=== PATIENT | female | born 1955 | race Caucasian/White ===

== ENCOUNTER → 2017-05-17 13:11 | Outpatient (POV) | payer BC, SELFPAY ==
[2017-05-17 13:33] VITALS: BP 150/83; PULSE 84; RESP 18; TEMP 37; O2SAT 96; BMI 30.7
--- NOTE | 2017-05-17 13:36 | HMH.PAINSOAP ---
[facility] Pain Management SOAP Note Subjective:: This patient is a pleasant 60-year-old white female who we have been treating for low back pain with degenerative disc disease of lumbar spine with lumbar spondylosis. She got 4-5 months complete relief of her pain symptoms after her RFA of L3-L4, L4-5 and L5-S1. She was 90% better. Pain is starting to return. Her last RFA was in June 2016. Since her pain is back in the same areas we will seek approval for repeat radiofrequency ablation to the facet joints of L3-L4, L4-L5 and L5-S1 bilaterally. Objective:: Alert and oriented ?3 in no acute distress. Tenderness over the lower lumbar spine. Increased pain with extension. Motor strength of the lower extremities is 5/5. There is no gross sensory deficit. Assessment:: Degenerative disc disease of lumbar spine multiple levels with lumbar spondylosis at L3-L4, L4-L5 and L5-S1. Plan:: We will seek approval for radiofrequency ablation to the facet joints of L3-4, L4-5 and L5-S1. Her last RFA was in June of last year she had gotten 90% relief of her pain symptoms for 6 months. Her pain is started to return. We will seek approval and plan on repeat radiofrequency ablation to L3-L4, L4-5 and L5-S1. We will plan on doing the left side followed by the right side in 2 weeks.
== END ==
PROVIDERS: Family Provider Family Medicine; PCP Family Medicine; Visit Provider Anesthesiology
DX: M51.16 Intervertebral disc disorders with radiculopathy, lumbar region (principal)
CPT/HCPCS: 99212

== ENCOUNTER 2017-06-18 11:10 | Day surgery (SDC) | payer BC, SELFPAY ==
[2017-06-18 12:53] VITALS: BP 162/81; PULSE 68; RESP 188; TEMP 36.1; O2SAT 99; BMI 29.9
[2017-06-18 13:28] VITALS: BP 141/78; PULSE 75; RESP 18
[2017-06-18 13:41] VITALS: BP 165/79; PULSE 67; RESP 18; O2SAT 99
--- NOTE | 2017-06-18 13:44 | P.PCN_ITS ---
- Procedure Date: 06/18/17 Time: 13:23 Anesthesiologist:: Johnathan Ferraro MD Complications:: None Pre-procedure Diagnosis:: Degenerative disc disease of lumbar spine multiple levels with lumbar spondylosis Post-procedure Diagnosis:: Same Indications for Procedure:: This patient is a pleasant 61-year-old white female who we have been treating for low back pain with lumbar radiculopathy symptoms. She previously had RFA of the facet joint/medial branches of L3-L4, L4-5 and L5-S1 in June 2016. She got 4-5 months complete relief of her pain symptoms. Her symptoms is started to return. We will do repeat RFA to the facet joint/medial branches of L3-L4, L4-L5 and L5-S1. Today her right side is worse we will start with the right side today followed by the left side in 2 weeks. Procedure Details:: Lumbar RFA informed consent was obtained and the risk and benefits of the procedure was explained to the patient. Patient was placed prone on the procedure table. The patient was prepped and draped in sterile fashion. C-arm fluoroscopy was used to view the lumbar spine. The skin and subcutaneous tissues were anesthetized using lidocaine. I placed 20-gauge RF needles into the facet joints of L3-L4, L4-L5 and L5-S1 levels on the right side. We underwent sensory stimulation. There is good sensory stimulation at 0.8 V. We underwent motor stimulation. There is no motor stimulation at 2 V. We then anesthetized these levels with lidocaine and Depo-Medrol. I used a total of 40 mg Depo- Medrol for all 3 levels. I then burned both levels of L3-L4, L4-5 and L5-S1 facet joint/medial branches on the right side for 60 seconds at 80?C. We underwent 4 arellano again each 1 for 60 seconds at 80?C. Patient tolerated the procedure well with no complication. Plan and Disposition:: We will follow-up with her in 2 weeks. We will reevaluate her symptoms and plan on RFA of the facet joint/medial branches of L3-L4, L4-L5 and L5-S1 on the left side.
[2017-06-18 13:53] VITALS: BP 165/89; PULSE 71; RESP 18; TEMP 36.1; O2SAT 96
== END 2017-06-18 14:00 ==
LOC: SC.PAINP 11:11
PROVIDERS: Family Provider Family Medicine; PCP Family Medicine; Visit Provider Anesthesiology
DX: M51.16 Intervertebral disc disorders with radiculopathy, lumbar region (principal); M47.896 Other spondylosis, lumbar region
CPT/HCPCS: 64635; 64636; J1040

== ENCOUNTER → 2017-07-30 09:26 | Day surgery (SDC) | payer BC, SELFPAY ==
[2017-07-30 09:38] VITALS: BP 150/71; PULSE 65; RESP 18; TEMP 36.7; O2SAT 99; BMI 29.9
--- NOTE | 2017-07-30 09:59 | HMH.PMPROC ---
- Procedure Date: 07/30/17 Time: 09:59 Anesthesiologist:: Johnathan Ferraro MD Complications:: None Pre-procedure Diagnosis:: Degenerative disc disease of lumbar spine multiple levels with lumbar spondylosis Post-procedure Diagnosis:: Same Indications for Procedure:: This patient is a pleasant 61-year-old white female who we have been treating for low back pain with lumbar radiculopathy symptoms. She previously had radiofrequency ablation to the facet joint/medial branches of L3-L4 and L4-L5 and L5-S1 right side with good relief of her pain symptoms. She is 80% better on the right side. She presents for radiofrequency ablation to the same levels on the left side today. Procedure Details:: Lumbar RFA informed consent was obtained and the risk and benefits of the procedure was explained to the patient. Patient was placed prone on the procedure table. The patient was prepped and draped in sterile fashion. C-arm fluoroscopy was used to view the lumbar spine. The skin and subcutaneous tissues were anesthetized using lidocaine. I placed 20-gauge RF needles into the facet joints of L3-L4, L4-5 and L5-S1 on the left side. We underwent sensory stimulation. There is good sensory stimulation at 0.8 V. We underwent motor stimulation. There is no motor stimulation at 2 V. We then anesthetized these levels with lidocaine and Depo-Medrol. I used a total of 40 mg Depo-Medrol for all three levels. I then burned all 3 levels of L3-L4, L4-L5 and L5-S1 facet joint/medial branches on the left side for 60 seconds at 80?C. We underwent 4 arellano again each 1 for 60 seconds at 80?C. Patient tolerated the procedure well with no complication. Plan and Disposition:: We will follow-up with her in 1 month. We will reevaluate her symptoms at that time.
[2017-07-30 10:08] VITALS: BP 171/81; PULSE 64; RESP 18; O2SAT 98
[2017-07-30 10:09] VITALS: BP 156/77; PULSE 60; RESP 18; O2SAT 98
[2017-07-30 10:53] VITALS: BP 174/67; PULSE 62; RESP 16; O2SAT 98
== END ==
PROVIDERS: Family Provider Family Medicine; PCP Family Medicine; Visit Provider Anesthesiology
DX: M51.16 Intervertebral disc disorders with radiculopathy, lumbar region (principal)
CPT/HCPCS: 64635; 64636; J1030; Q9966

== ENCOUNTER → 2018-02-28 15:00 | Outpatient (POV) | payer BC, SELFPAY ==
[2018-02-28 15:35] VITALS: BP 155/86; PULSE 78; RESP 18; O2SAT 98; BMI 29.9
--- NOTE | 2018-03-01 07:54 | HMH.PAINSOAP ---
[facility] Pain Management SOAP Note Subjective:: Patient is a pleasant 62-year-old white female who we are treating for low back pain. Patient has had RFA in the past. Patient has done well for 7 months. It provided good relief for her. Patient states her pain has begun to come back. Patient would like to try a round of medial branch blocks/facet joint injections to see if this would help prolong her success with the RFA. She rates her pain is out of 10 today. Mostly low back. Patient has difficulty with turning movements. ROS General: no recent weight change, no fever, no sleep disturbances Respiratory: no cough, no shortness of air, no recurring pulmonary infections Cardiovascular/Peripheral Vascular: No chest pain, No palpitations, no edema, no shortness of breath. Gastrointestinal: no incontinence, normal bowel movements reported Genitourinary: no incontinence Musculoskeletal: Back pain Psychiatric: normal mood/ affect Neurological: [denies weakness in extremities], [denies balance issues] Objective:: Physical Exam General: Alert and oriented x3, no acute distress, pleasant and cooperative, [on room air] Lungs: Resps E/U, Symmetrical chest expansion, Eyes: PERRL Musculoskeletal: Flexion and extension of lumbar spine somewhat guarded secondary to pain, deep tendon reflexes normal, strength in upper and lower extremities [5/5], slightly antalgic gait noted, positive Kemps test bilaterally lumbar spine Neurological: speech clear, 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 Patient has had good relief with these in the past. Patient has received over 7 months of relief with her RFA. I will follow-up with the patient after her injection. Patient is not on any anticoagulation therapy. This note was dictated using voice recognition software and may contain errors or omissions
== END ==
PROVIDERS: PCP Family Medicine; Visit Provider Clinical Nurse Specialist Family Health
DX: M51.36 Other intervertebral disc degeneration, lumbar region (principal); M47.896 Other spondylosis, lumbar region; M54.06 Panniculitis affecting regions of neck and back, lumbar region
CPT/HCPCS: 99213

== ENCOUNTER → 2018-04-11 14:35 | Outpatient (POV) | payer BC, SELFPAY ==
[2018-04-11 15:59] VITALS: BP 184/87; PULSE 82; RESP 18; O2SAT 99; BMI 28.6
--- NOTE | 2018-04-12 08:15 | P.CONS_ITS ---
[facility] Pain Management SOAP Note Subjective:: Is a pleasant 62-year-old white female who presents today for follow-up after medial branch blocks. Patient is doing extremely well she rates her pain a 2 out of 10 today. Patient would like to follow-up as needed. ROS General: no recent weight change, no fever, no sleep disturbances Respiratory: no cough, no shortness of air, no recurring pulmonary infections Cardiovascular/Peripheral Vascular: No chest pain, No palpitations, no edema, no shortness of breath. Gastrointestinal: no incontinence, normal bowel movements reported Genitourinary: no incontinence Musculoskeletal: Back pain at times Psychiatric: normal mood/ affect Neurological: [denies weakness in extremities], [denies balance issues] Objective:: Physical Exam General: Alert and oriented x3, no acute distress, pleasant and cooperative, [on room air] Lungs: Resps E/U, Symmetrical chest expansion, Eyes: PERRL Musculoskeletal: Flexion and extension of lumbar spine somewhat guarded secondary to pain, deep tendon reflexes normal, strength in upper and lower extremities [5/5], slightly antalgic gait noted Neurological: speech clear, 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 Patient's been a call our office when her pain begins to return This note was dictated using voice recognition software and may contain errors or omissions
== END ==
PROVIDERS: PCP Family Medicine; Visit Provider Clinical Nurse Specialist Family Health
DX: M51.36 Other intervertebral disc degeneration, lumbar region (principal); M47.896 Other spondylosis, lumbar region; M54.06 Panniculitis affecting regions of neck and back, lumbar region
CPT/HCPCS: 99213

== ENCOUNTER → 2018-06-17 10:32 | Outpatient (CLI) | payer BC, SELFPAY ==
--- NOTE | 2018-06-17 10:35 | XR_ITS ---
XR shoulder RT min 2V HISTORY: ITS.REASON: ACUTE RT SHOULDER PAIN ORDERING PHYSICIAN: Marbella Coffey PATIENT AGE: 62 years Comparison: None FINDINGS: No fracture or dislocation. No lytic or blastic change. There is normal mineralization. The joint spaces are well-preserved. No significant degenerative/arthritic changes. No erosive changes evident. IMPRESSION: Negative, no acute finding
== END ==
PROVIDERS: PCP Nurse Practitioner Family; Visit Provider Nurse Practitioner Family
DX: M25.511 Pain in right shoulder (principal)
CPT/HCPCS: 73030

== ENCOUNTER → 2018-07-01 13:49 | Outpatient (CLI) | payer BC, SELFPAY ==
--- NOTE | 2018-07-01 13:56 | US_ITS ---
US thyroid HISTORY: ITS.REASON: THYROMEGALY, prior radiation to the thyroid ORDERING PHYSICIAN: Marbella Coffey PATIENT AGE: 62 years Comparison: 06/11/2016 FINDINGS: Hypoplastic right lobe noted at 1.1 x 0.4 x 0.5 cm with heterogeneous echogenicity. No discrete mass or enlargement. Hypoplastic left lobe at 1.6 x 0.7 x 0.5 cm with heterogeneous echogenicity. No discrete mass or enlargement. IMPRESSION: Small heterogeneous thyroid gland. No discrete mass apparent
== END ==
PROVIDERS: PCP Nurse Practitioner Family; Visit Provider Nurse Practitioner Family
DX: E01.0 Iodine-deficiency related diffuse (endemic) goiter (principal)
CPT/HCPCS: 76536

== ENCOUNTER → 2018-10-10 08:43 | Outpatient (CLI) | payer BC, SELFPAY ==
--- NOTE | 2018-10-10 08:49 | XR_ITS ---
XR elbow RT min 3V HISTORY: ITS.REASON: rt elbow pain ORDERING PHYSICIAN: Eri Etienne MD PATIENT AGE: 62 years COMPARISON: None FINDINGS: No obvious fracture or dislocation. No lytic or blastic change. There is a well-circumscribed calcification along the medial epicondyle and may be an old avulsion fracture or ligamentous injury. IMPRESSION: Chronic changes at the medial epicondyle otherwise negative
--- NOTE | 2018-10-10 08:49 | XR_ITS ---
XR hip RT 2-3V w/pelvis HISTORY: ITS.REASON: rt hip pain ORDERING PHYSICIAN: Eri Etienne MD PATIENT AGE: 62 years COMPARISON: None FINDINGS: There are mild osteoarthritic changes of the right hip. No acute fracture or dislocation. Mild osteoarthritis also involves SI joints in the left hip as seen on the AP view of the pelvis. No lytic or blastic changes. 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
--- NOTE | 2018-10-10 08:49 | XR_ITS ---
XR knee RT 4V HISTORY: ITS.REASON: knee pain ORDERING PHYSICIAN: Eri Etienne MD PATIENT AGE: 62 years COMPARISON: None FINDINGS: No fracture or dislocation. No lytic or blastic change. Normal mineralization. No significant arthritic changes evident. No other significant findings IMPRESSION: Negative Knee
== END ==
PROVIDERS: PCP Family Medicine; Visit Provider Orthopaedic Surgery
DX: M25.551 Pain in right hip (principal); M25.521 Pain in right elbow
CPT/HCPCS: 73080; 73502; 73564

== ENCOUNTER → 2019-08-22 09:33 | Outpatient (POV) | payer BC, SELFPAY ==
--- NOTE | 2019-08-22 11:37 | HMH.VVPMSO ---
[facility] Virtual Visit SOAP Consent for virtual visit:: With the recent concerns about the COVID-19, we are trying to minimize exposure to you by shifting to telehealth appointments whenever possible. It restricts me from seeing you in person, but the trade off is protecting you during this pandemic. Can you see and hear me okay, and do you consent to this option? If not, I would be happy to see if we can reschedule your appointment in the future, when feasible. Has patient consented to this virtual visit?: Yes Subjective:: Is a pleasant 63-year-old white female who presents today to discuss her low back pain. A year ago the patient had an RFA of her lumbar spine. She got 80% relief for 9 months. She has had another medial branch block in which she got 90% relief afterwards. Patient would like to move forward with an repeat radiofrequency ablation of L3-L4 L4-L5 L5-S1 given the efficacy of the last one. She rates her pain today a 7 out of 10. She is trying to stay active at work. Patient's pain is becoming an issue in her activities of daily living. She is tried and failed anti-inflammatories physical therapy and injective therapy. ROS General: no recent weight change, no fever, no sleep disturbances Respiratory: no cough, no shortness of air, no recurring pulmonary infections Cardiovascular/Peripheral Vascular: No chest pain, No palpitations, no edema, no shortness of breath. Gastrointestinal: no new onset incontinence, normal bowel movements reported Genitourinary: no new onset incontinence Musculoskeletal: Back pain Psychiatric: normal mood/ affect, [denies depression], [denies anxiety] Neurological: [denies new onset weakness in extremities], [denies new onset balance issues] Objective:: Physical exam: Constitutional: Healthy appearing, well-developed, alert, in no acute distress Psychiatric: Judgment and insight intact, Alert and oriented x4 Mood and affect: Mood normal, affect appropriate Head and face: Inspection: Normocephalic atraumatic, extraocular movement intact Respiratory: Breathing nonlabored, nondyspneic Cardiovascular: No cyanosis, clubbing, or edema observed Skin: Head and neck: Skin with no lesions or rash observed Gait: Able to walk without assistive device: Able to heel and toe walk Neurologic: Sensation grossly intact per patient Musculoskeletal: Difficulty with rotational movements secondary to pain. Decreased range of motion lumbar spine noted Assessment:: Lumbar spondylosis, lumbar facet arthropathy Plan:: We will schedule patient for an RFA of the L3-L4 L4-L5 L5-S1 levels bilaterally. We will start with the right side and then in 2 weeks to the left side. Patient's not on any anticoagulation therapy. I will follow-up with her after this reassess her symptoms at that time she has been instructed to call the office if she has any issues prior to her next appointment. This encounter was performed as a telemedicine visit via secure 2 way video and audio to minimize risk and transmission of Covid-19. The patient and we understand the limitations of a telemedicine visit including inability to check reflexes, possibly missing subtle findings on physical exam. Alternative options were presented to the patient and the patient elected to proceed with the visit. We specifically discussed risk factors for Covid-19 including age, heart or lung disease, diabetes, immunosuppression and travel. We also discussed that NSAIDs may worsen Covid-19 infection symptoms and that they should not be used to treat Covid-19 symptoms. Patient was also informed that corticosteroids in any form oral or injectable will decrease immune response and may increase risk of Covid-[address] Ferraro has reviewed this patient's chart and this note and agrees with plan of care. Patient has been instructed to call the office if they have any issues prior to the next appointment. Time In:: 09:15 Time Out:: 09:25 [facility]
== END ==
PROVIDERS: Visit Provider Clinical Nurse Specialist Family Health
DX: M47.896 Other spondylosis, lumbar region (principal); M54.06 Panniculitis affecting regions of neck and back, lumbar region
CPT/HCPCS: 99212

== ENCOUNTER 2019-09-15 11:24 | Day surgery (SDC) | payer BC, SELFPAY ==
[2019-09-15 11:54] VITALS: BP 184/75; PULSE 81; RESP 18; O2SAT 99; BMI 30.7
[2019-09-15 12:13] VITALS: BP 185/87; PULSE 76; RESP 18
[2019-09-15 12:14] VITALS: BP 175/89; PULSE 77; RESP 18; O2SAT 98
[2019-09-15 12:25] VITALS: BP 187/78; PULSE 64; RESP 18; O2SAT 99
--- NOTE | 2019-09-15 12:26 | HMH.PMPROC ---
- Procedure Date: 09/15/19 Time: 12:26 Anesthesiologist:: Johnathan Ferraro MD Complications:: None Pre-procedure Diagnosis:: Degenerative disc disease of lumbar spine with lumbar spondylosis and facet arthropathy of lumbar spine Post-procedure Diagnosis:: Same Indications for Procedure:: This patient is a pleasant 63-year-old white female who we are treating for low back pain with lumbar spondylosis and facet arthropathy of lumbar spine. She has previously had an RFA over a year ago. She got 80% relief for 9 months. She also had a recent medial branch block of L3-L4, L4-5 and L5-S1 with 90% relief of her pain symptoms. She presents for radiofrequency ablation of the facet joints of L3-L4, L4-5 and L5-S1 on the right side under fluoroscopy today. Procedure Details:: Lumbar RFA informed consent was obtained and the risk and benefits of the procedure was explained to the patient. Patient was placed prone on the procedure table. The patient was prepped and draped in sterile fashion. C-arm fluoroscopy was used to view the lumbar spine. The skin and subcutaneous tissues were anesthetized using lidocaine. I placed 20-gauge RF needles into the facet joints of L3-L4, L4-5 and L5-S1 levels on the right side. We underwent sensory stimulation. There is good sensory stimulation at 0.8 V. We underwent motor stimulation. There is no motor stimulation at 2 V. We then anesthetized these levels with lidocaine and Depo-Medrol. I used a total of 40 mg Depo-Medrol for all 3 levels. I then burned levels of L3-4, L4-5 and L5-S1 facet joint/medial branches on the right side for 4 minutes at 80 ?C. Patient tolerated the procedure well with no complication. Plan and Disposition:: We will follow-up with her in 2 weeks. Will reevaluate her symptoms at that time. We will plan on radiofrequency ablation to the facet joint/medial branches of L3-L4, L4-5 and L5-S1 on the left side.
== END 2019-09-15 12:25 | disposition home or self-care (01) ==
PROVIDERS: PCP Family Medicine; Visit Provider Anesthesiology
DX: M51.36 Other intervertebral disc degeneration, lumbar region (principal); M47.816 Spondylosis without myelopathy or radiculopathy, lumbar region; M12.88 Other specific arthropathies, not elsewhere classified, other specified site; G89.29 Other chronic pain; I10 Essential (primary) hypertension; J45.909 Unspecified asthma, uncomplicated; Z90.49 Acquired absence of other specified parts of digestive tract; Z90.710 Acquired absence of both cervix and uterus
CPT/HCPCS: 64635; 64636; J1040

== ENCOUNTER 2019-10-06 13:04 | Day surgery (SDC) | payer BC, SELFPAY ==
[2019-10-06 13:20] VITALS: BP 164/83; PULSE 63; RESP 18; TEMP 36.7; O2SAT 100; BMI 30.7
[2019-10-06 14:02] VITALS: BP 188/80; BP 188/85; PULSE 66; PULSE 69; RESP 18; O2SAT 99
--- NOTE | 2019-10-06 14:09 | HMH.PMPROC ---
- Procedure Date: 10/06/19 Time: 14:09 Anesthesiologist:: Johnathan Ferraro MD Complications:: None Pre-procedure Diagnosis:: Degenerative disc disease of lumbar spine with lumbar facet arthropathy and lumbar spondylosis Post-procedure Diagnosis:: Same Indications for Procedure:: This patient is a pleasant 63-year-old white female who we are treating for low back pain lumbar spondylosis and facet arthropathy. She is done very well with radiofrequency ablation of the facet joints of L3-4, L4-5 and L5-S1 on the right side. She presents for RF ablation of the same levels on the left side today. Procedure Details:: Lumbar RFA informed consent was obtained and the risk and benefits of the procedure was explained to the patient. Patient was placed prone on the procedure table. The patient was prepped and draped in sterile fashion. C-arm fluoroscopy was used to view the lumbar spine. The skin and subcutaneous tissues were anesthetized using lidocaine. I placed 20-gauge RF needles into the facet joints of L3-L4, L4-L5 and L5-S1 levels on the left side. We underwent sensory stimulation. There is good sensory stimulation at 0.8 V. We underwent motor stimulation. There is no motor stimulation at 2 V. We then anesthetized these levels with lidocaine and Depo-Medrol. I used a total of 40 mg Depo-Medrol for all 3 levels. I then burned both levels of L3-L4, L4-L5 and L5-S1 facet joint/medial branches on the left side for 4 minutes at 80 ?C. Patient tolerated the procedure well with no complication. Plan and Disposition:: We will follow-up with her in 2 weeks. Will reevaluate symptoms at that time.
[2019-10-06 14:31] VITALS: BP 186/79; PULSE 61; RESP 18; O2SAT 100
== END 2019-10-06 14:30 | disposition home or self-care (01) ==
LOC: SC.PAINP 13:05
PROVIDERS: PCP Family Medicine; Visit Provider Anesthesiology
DX: M51.36 Other intervertebral disc degeneration, lumbar region (principal); M12.88 Other specific arthropathies, not elsewhere classified, other specified site; M47.816 Spondylosis without myelopathy or radiculopathy, lumbar region; I10 Essential (primary) hypertension; E03.9 Hypothyroidism, unspecified; Z90.49 Acquired absence of other specified parts of digestive tract; Z90.710 Acquired absence of both cervix and uterus; Z87.39 Personal history of other diseases of the musculoskeletal system and connective tissue; Z79.899 Other long term (current) drug therapy
CPT/HCPCS: 64635; 64636; J1030

== ENCOUNTER → 2019-11-02 08:45 | Outpatient (POV) | payer BC, SELFPAY ==
[2019-11-02 08:52] VITALS: BP 162/84; PULSE 62; RESP 18; TEMP 36.8; O2SAT 98; BMI 30.7
--- NOTE | 2019-11-02 08:57 | HMH.PAINSOAP ---
[facility] Pain Management SOAP Note Subjective:: Patient is a pleasant 64-year-old white female who presents today for follow-up after a RFA on the right side. Patient says that she continues to have pain on her right low back area. She says it is not as bad as it was before the RFA. She rates her pain a 2 out of 10 today. Patient does say, however, most of her pain is in her left leg. Patient says she did undergo an RFA on the left side and following the procedure she had severe numbness and tingling into the leg. She says that her leg gave out immediately after the procedure due to numbness. She says since undergoing the left RFA she has had a cold sensation to her left leg. Patient has not had any recent imaging of her lumbar spine. Review of Systems General: No recent weight changes, no fever, no sleep disturbances Respiratory: No cough, no shortness of air, no recurring pulmonary infections Cardiovascular/peripheral vascular: No chest pain, no palpitations, no edema, no shortness of breath Gastrointestinal: No new onset incontinence, normal bowel movements reported Genitourinary: No new onset incontinence Musculoskeletal: Right low back pain, left leg pain with numbness and tingling Psychiatric: Normal mood/affect Neurological: [Denies weakness in extremities], [denies balance issues] Objective:: Physical exam General: Alert and oriented x3, no acute distress, pleasant and cooperative, [on room air] Lungs: Respirations even and unlabored, symmetrical chest expansion Eyes: PERRL Musculoskeletal: Flexion and extension of lumbar spine somewhat guarded secondary to pain, deep tendon reflexes normal, strength in upper and lower extremities [5/5], [abnormal gait noted] Neurological: Speech clear, ballet 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 We will see her back in the clinic after her imaging to discuss a further plan of care. Patient has been instructed to contact clinic if she has any concerns before her next appointment. The patient and I specifically discussed risk factors for COVID19. These risks include, but are not limited to age greater than 60, heart or lung disease, diabetes, immunosuppression, and travel. We also discussed NSAIDs may worsen COVID19 infection or symptoms. Patient should not use NSAIDs to treat COVID19 signs or symptoms. Patient was also informed that any type of corticosteroid of any form (oral or injection) will decrease the patient's immune system response and may increase the likelihood of COVID19 infection [address] symptoms[address] Dr. Ferraro has reviewed this note and agrees with this plan of care. This note was dictated using voice recognition software and make contain errors or omissions. [facility] History I have reviewed the patient's past medical history: Yes Medical History: Reports:: Hypertension Denies:: Cancer, Diabetes Mellitus Type 1, Diabetes Mellitus Type 2, MRSA, Seizures *Have you ever received a pneumonia vaccine?: Yes *Have you received a flu vaccine this season?: Yes Other Medical History: Reports: Arthritis, Hypothyroidism, Thyroid Disease. Denies: Blood Transfusion Reaction Other Surgeries: Yes: Cholecystectomy, Hysterectomy-Total, Other Amputation: No Fractures: No - *Social History Smoking Status: Never smoker Alcohol Intake: never *Occupational Status:: other Housing: house Household Members: spouse *Travel in the last 8 weeks: None Family Hx:: Cancer
== END ==
PROVIDERS: PCP Family Medicine; Visit Provider Clinical Nurse Specialist Family Health
DX: M51.36 Other intervertebral disc degeneration, lumbar region (principal); M47.816 Spondylosis without myelopathy or radiculopathy, lumbar region; M12.88 Other specific arthropathies, not elsewhere classified, other specified site
CPT/HCPCS: 99212

== ENCOUNTER → 2019-11-21 13:25 | Outpatient (CLI) | payer BC, SELFPAY ==
--- NOTE | 2019-11-21 13:29 | MR_ITS ---
PROCEDURE: MR LUMBAR SPINE WO CON CLINICAL INDICATION: BACK PAIN Prior back surgery. Low back pain with numbness in the left leg COMPARISON: [facility] [place]/WO from 02/04/2015 TECHNIQUE: Standard multiplanar multiecho sequences are performed without contrast. 3-D MIP and myelographic images are also rendered and reviewed FINDINGS: There is normal alignment. The spinal cord ends at the L1-L2 level. T11-T12: Mild degenerative disc disease. T12-L1: Mild degenerative disc disease with minimal bulging disc and a small broad-based central right paracentral disc protrusion without impingement. Not significantly changed L1-L2: Unremarkable. L2-L3: Mild facet and ligamentum hypertrophy L3-L4: Degenerative disc disease with minimal bulging disc with facet and ligamentum hypertrophy with bilateral lateral recess and foraminal narrowing. The facet and ligamentum hypertrophy has slightly progressed compared to the previous exam. L4-5: Degenerative disc disease. There is a small central disc osteophyte complex and a small left paracentral disc osteophyte complex similar to the previous exam. There is moderate facet hypertrophic change which is greater on the right compared to the left but not significantly changed. Postsurgical changes are present on the left at this level the with a small laminotomy defect on the left. There is moderate to severe right foraminal narrowing and severe left foraminal narrowing not significantly changed. L5-S1: Degenerative disc disease with bulging disc. There is a heterogeneous area of signal intensity in the left paracentral and foraminal region. This area previously demonstrated contrast enhancement and was felt to be due to epidural fibrosis. Cannot adequately evaluate for epidural fibrosis on today's exam without gadolinium enhancement. This region appears slightly more prominent compared to the previous study with impingement upon the left S1 nerve root and severe left-sided foraminal narrowing. Postsurgical changes are present at this level on the left. There is moderate right foraminal narrowing as well from facet and ligamentum hypertrophy and bulging disc. The IMPRESSION: 1. T12-L1: Mild degenerative disc disease with minimal bulging disc and a small broad-based central right paracentral disc protrusion without impingement. Not significantly changed 2. L3-L4: Degenerative disc disease with minimal bulging disc with facet and ligamentum hypertrophy with bilateral lateral recess and foraminal narrowing. The facet and ligamentum hypertrophy has slightly progressed compared to the previous exam. 3. L4-5: Degenerative disc disease. There is a small central disc osteophyte complex and a small left paracentral disc osteophyte complex similar to the previous exam. There is moderate facet hypertrophic change which is greater on the right compared to the left but not significantly changed. Postsurgical changes are present on the left at this level the with a small laminotomy defect on the left. There is moderate to severe right foraminal narrowing and severe left foraminal narrowing not significantly changed. 4. L5-S1: Degenerative disc disease with bulging disc. There is a heterogeneous area of signal intensity in the left paracentral and foraminal region. This area previously demonstrated contrast enhancement and was felt to be due to epidural fibrosis. Cannot adequately evaluate for epidural fibrosis on today's exam without gadolinium enhancement. This may represent an area of epidural fibrosis versus residual or recurrence disc protrusion or a combination there of. Repeat exam without and with gadolinium enhancement suggested for more thorough evaluation. This region appears slightly more prominent compared
== END ==
PROVIDERS: PCP Family Medicine; Visit Provider Clinical Nurse Specialist Family Health
DX: M54.5 Low back pain (principal)
CPT/HCPCS: 72148; 76376

== ENCOUNTER → 2019-11-30 12:39 | Outpatient (POV) | payer BC, SELFPAY ==
[2019-11-30 12:50] VITALS: BP 132/88; PULSE 85; RESP 18; O2SAT 98; BMI 30.7
--- NOTE | 2019-11-30 13:09 | HMH.PAINSOAP ---
[facility] Pain Management SOAP Note Subjective:: Patient is a pleasant 64-year-old white female who presents today for follow-up. She recently had an MRI that she would like to discuss today. Patient has undergone RFA's of her spine. She continues to have low back pain with radiation into her legs. She is having numbness and tingling. She rates her pain a 6 out of 10 today. She says her legs have been going numb and worsening since having her RFA. She has had a history of a laminectomy in the past of her lumbar spine. Also reports to be having some mid back and neck pain as well. The pain in her neck is radiating into her right shoulder. Says this is new onset for her. Denies any numbness or tingling in her arm or hand at this time. Review of Systems General: No recent weight changes, no fever, no sleep disturbances Respiratory: No cough, no shortness of air, no recurring pulmonary infections Cardiovascular/peripheral vascular: No chest pain, no palpitations, no edema, no shortness of breath Gastrointestinal: No new onset incontinence, normal bowel movements reported Genitourinary: No new onset incontinence Musculoskeletal: Neck pain, right shoulder pain, low back pain, mid back pain, bilateral lower extremity numbness and tingling Psychiatric: Normal mood/affect Neurological: [Denies weakness in extremities], [denies balance issues] Objective:: Physical exam General: Alert and oriented x3, no acute distress, pleasant and cooperative, [on room air] Lungs: Respirations even and unlabored, symmetrical chest expansion Eyes: PERRL Musculoskeletal: Flexion and extension of cervical, thoracic, lumbar spine somewhat guarded secondary to pain, deep tendon reflexes normal, strength in upper and lower extremities [5/5], [abnormal gait noted] Neurological: Speech clear, stereo compiler equal, no gross sensory deficit Assessment:: Degenerative disc disease lumbar spine with lumbar radiculopathy symptoms, lumbar facet arthropathy and lumbar spondylosis, mid back pain, neck pain, spinal stenosis Plan:: The patient is not interested in any type of surgical intervention. She and I did discuss her MRI. She would like to discuss possible implanted devices. She and I did have a long discussion concerning spinal cord stimulation and intrathecal therapy. We will schedule the patient for a psychological evaluation to determine if she is an appropriate candidate for possible stimulation or intrathecal therapy. We will plan to see her back in the clinic after her psychological evaluation to discuss a further plan of care. Patient is interested in the [employer] spinal cord stimulator. She does understand that if this does not give her adequate relief, the thecal pain pump may be a better option for her as her pain is throughout her entire spine. Patient has been instructed to contact the clinic if she has any concerns before her next appointment. The patient and I specifically discussed risk factors for COVID19. These risks include, but are not limited to age greater than 60, heart or lung disease, diabetes, immunosuppression, and travel. We also discussed NSAIDs may worsen COVID19 infection or symptoms. Patient should not use NSAIDs to treat COVID19 signs or symptoms. Patient was also informed that any type of corticosteroid of any form (oral or injection) will decrease the patient's immune system response and may increase the likelihood of COVID19 infection [address] symptoms[address]. Ferraro has reviewed this note and agrees with this plan of care. This note was dictated using voice recognition software and make contain errors or omissions. [facility] History I have reviewed the patient's past medical history: Yes Medical History: Reports:: Hypertension Denies:: Cancer, Diabetes Mellitus Type 1, Diabetes Mellitus Type 2, MRSA, Seizures *Have you ever received a pneumonia vaccine?: Yes *Have you received a flu vaccine this season?: Yes Other Medical History: Reports:
== END ==
PROVIDERS: PCP Family Medicine; Visit Provider Clinical Nurse Specialist Family Health
DX: M51.16 Intervertebral disc disorders with radiculopathy, lumbar region (principal); M12.88 Other specific arthropathies, not elsewhere classified, other specified site; M47.896 Other spondylosis, lumbar region; M48.00 Spinal stenosis, site unspecified; M54.2 Cervicalgia
CPT/HCPCS: 99212

== ENCOUNTER → 2020-02-21 15:20 | Outpatient (CLI) | payer BC, SELFPAY ==
[2020-02-21 16:12] LABS: Basophils # 0.1 K/mm3 (0-0.2); Basophils % 1.2 % (0.1-2.0); Eosinophils # 1.7 K/mm3 (0.0-0.4); Hematocrit 38.4 % (37.0-47.0); Hemoglobin 13.1 g/dL (12.2-16.2); Lymphocytes % 34.2 % (10-50); Mean Corpuscular Hemoglobin 30.5 pg (27.0-31.2); Mean Corpuscular Volume 89.7 fl (81-99); Mean Platelet Volume 7.7 fl (7.4-10.4); Monocytes # 0.5 K/mm3 (0.1-1.0); Neutrophils # 3.4 K/mm3 (1.8-7.8); Neutrophils % 39.5 % (37.0-80.0); Platelet Count 265 K/mm3 (142-424); Red Blood Count 4.28 M/mm3 (4.20-5.40); Red Cell Distribution Width 12.8 % (11.5-17.5); White Blood Count 8.7 K/mm3 (4.8-10.8)
[2020-02-21 16:26] LABS: Blood Urea Nitrogen 17 mg/dl (7-17); Calcium 10.4 mg/dl (8.4-10.2); Carbon Dioxide 27 mmol/L (22.0-30.0); Chloride 107 mmol/L (98-107); Estimated Glomerular Filt Rate 63 ml/min (>60); GFR (African American) 77 ML/MIN (>60); Glucose 87 mg/dl (74-100); Sodium 143 mmol/L (136-145)
[2020-02-21 18:29] LABS: Coronavirus 19 IgG Antibody Negative (Negative); Coronavirus 19 IgM Antibody Negative (Negative)
== END ==
PROVIDERS: Visit Provider Anesthesiology
DX: Z01.818 Encounter for other preprocedural examination (principal); M51.36 Other intervertebral disc degeneration, lumbar region
CPT/HCPCS: 36415; 80048; 85025; 86328

== ENCOUNTER 2020-02-23 07:33 | Day surgery (SDC) | payer BC, SELFPAY ==
[2020-02-21 08:54] VITALS: BMI 29.9
[2020-02-23] VITALS (7 sets, daily range): BP systolic 131–190; BP diastolic 69–79; PULSE 62–90; RESP 18; TEMP 36.6–37; O2SAT 96–100
--- NOTE | 2020-02-23 08:46 | P.PN_ITS ---
[facility] Anesthesia Checklist - Patient Identification Patient Identification: Arm Band - Structural Data Admitted From: Home Planned Operative Procedure/s: Placement of Trial Neurostimulator under Fluoroscopy Consent for Planned Operative Procedure(s) Verified: Yes Verified Documents: Surgical Consent, History and Physical - NPO Status Verified Time NPO: 00:00 - Additional verifications Anesthesia Reactions: Yes (N/V) Hx Blood Transfusions: No Blood Transfusion Reaction: No - Airway Assessment C-Spine Mobility Assessed: Yes (mp3) TMJ Mobility Assessed: Yes Dentition: Good Dentition (upper and lower partials removed) - Neurological Assessment Level of Consciousness: Awake, Alert - Anesthesia Plan Anesthesia Risk discussed: Yes Anesthesia Plan: Verified ASA Class: III Anesthesia Type: MAC [facility] History I have reviewed the patient's past medical history: Yes Medical History: Reports:: Hypertension Denies:: Cancer, Diabetes Mellitus Type 1, Diabetes Mellitus Type 2, Internal Pacemaker, MRSA, Seizures *Have you ever received a pneumonia vaccine?: Yes *Have you received a flu vaccine this season?: Yes Other Medical History: Reports: Arthritis, Hypothyroidism, Thyroid Disease. Denies: Blood Transfusion Reaction Anesthesia experience/problems:: nac Other Surgeries: Yes: Cholecystectomy, Hysterectomy-Total, Other. No: Pacemaker Amputation: No Fractures: No - *Social History Last grade of school completed: High school graduate Smoking Status: Never smoker Alcohol Intake: never Substance Use Type: denies use *Occupational Status:: other Housing: house Household Members: spouse *Travel in the last 8 weeks: None Family Hx:: Cancer
--- NOTE | 2020-02-23 11:21 | P.OP_ITS ---
Date of procedure: 02/23/20 Pre-op Diagnosis:: Degenerative disc disease of lumbar spine with lumbar radiculopathy symptoms Post-op Diagnosis:: Same Procedure performed:: Spinal cord stimulator trial with epidural lead placement x2 Surgeon:: Johnathan Ferraro MD ACCOUNT RELATIONSHIP MANAGER:: Marcellus Mckeon Anesthesia: MAC Estimated blood loss (mL): 1 Clinical Note:: Patient is a pleasant 64-year-old white female who we are treating for low back pain with lumbar radiculopathy symptoms and postlaminectomy syndrome. Most of her pain is in her back rating down both legs. She has failed all previous conservative therapy including physical therapy, injections, previous RF and she is not a candidate for any further surgery. She has had a successful psychological evaluation. She presents for spinal cord stimulator trial with epidural lead placement x2 Operative findings:: None Operative note:: Informed consent was obtained and the risk and benefits of the procedure were explained to the patient. The patient was taken to the operating room placed prone on the procedure table. She was prepped and draped in sterile fashion. C-arm fluoroscopy was used to view the lumbar spine. The skin and subcutaneous tissues were anesthetized using lidocaine. I placed a 18-gauge spinal needle into the L3-L4 interspace. After confirmation of needle placement in the epidural space a stimulating lead was inserted and advanced very easily to the T7-T8-T9 vertebral body. Lead placement was checked in AP and lateral views. A second needle was then inserted and advanced again into the L3-L4 interspace. Again after confirmation of needle placement in the epidural space a stimulating lead was inserted and advanced again very easily to the T7-T8-T9 vertebral body. Lead placement again was checked in AP and lateral views. The stylets and needles were removed. The leads were secured in place. The patient was taken recovery in stable condition. Patient tolerated the procedure well with no complications. Patient was programmed by the [employer] with a paresthesia free fast program. Patient was discharged home neurologically tired with good relief of pain symptoms. Plan and disposition: We will follow-up with this patient in 3 days for reprogramming. We will follow-up in 1 week for lead pull. If patient has any problems or questions she is to call us back in the pain clinic. Condition: stable Disposition: PACU Complications:: None
== END 2020-02-23 12:00 | disposition home or self-care (01) ==
LOC: OR 07:36
PROVIDERS: PCP Family Medicine; Visit Provider Anesthesiology
PROC: (CPT 63650; principal; 2020-02-23 09:30)
DX: M51.16 Intervertebral disc disorders with radiculopathy, lumbar region (principal); I10 Essential (primary) hypertension; M19.90 Unspecified osteoarthritis, unspecified site; E03.9 Hypothyroidism, unspecified; Z79.899 Other long term (current) drug therapy
CPT/HCPCS: 63650 ×2; 96374; C1778; J3370

== ENCOUNTER → 2020-02-29 14:27 | Outpatient (POV) | payer BC, SELFPAY ==
[2020-02-29 15:43] VITALS: BP 129/76; PULSE 74; RESP 18; O2SAT 98; BMI 29.9
--- NOTE | 2020-02-29 16:49 | HMH.PMPROC ---
- Procedure Date: 02/29/20 Time: 16:49 Anesthesiologist:: Elvia Colon APRN Complications:: None Pre-procedure Diagnosis:: Degenerative disc disease lumbar spine with lumbar radiculopathy symptoms Post-procedure Diagnosis:: Same Indications for Procedure:: Patient is a 64-year-old white female who presents today for follow-up after spinal cord stimulator trial. She has been treated for chronic low back pain with lumbar radiculopathy symptoms as well as postlaminectomy syndrome of her lumbar spine. Patient says that primarily her pain is in her low back with radiation down both legs. Patient did try and failed conservative therapies of physical therapy for greater than 6 weeks. She also tried injections as well as previous RFA's. She has tried ice and heat therapies as well as oral medications with no relief. She does continue with a limited home stretching program. She underwent a psychological evaluation and was deemed an appropriate candidate for implanted devices. She did undergo the spinal cord stimulator trial. She is here today to have her leads removed and discuss a further plan of care. She does rate her pain a 0 out of 10 at this time. Patient reports that she was much more functional this week during the trial and was able to do much more activity walk for longer periods of time without any pain. Patient says she got 95% relief during the trial. She would like to proceed with implant. She is not on any anticoagulation therapy. Physical exam General: Alert and oriented x3, no acute distress, pleasant and cooperative, [on room air] Lungs: Respirations even and unlabored, symmetrical chest expansion Eyes: PERRL Musculoskeletal: Flexion and extension of lumbar spine somewhat guarded secondary to pain, deep tendon reflexes normal, strength in upper and lower extremities [5/5], [abnormal gait noted] Neurological: Speech clear, enterprise services manager equal, no gross sensory deficit Procedure Details:: Procedure in detail: Informed consent was obtained. The risks and benefits of the procedure were explained to the patient. The patient was taken to the procedure room where noninvasive monitors were placed, including noninvasive blood pressure cuff and pulse oximeter. The area around the leads was examined and there were no signs or symptoms of infection. The skin was cleansed using chlorhexidine around the trial leads. Both leads were removed without incident. Leads were complete and intact. Dressing was placed. Patient tolerated the procedure well with no complications. Plan and Disposition:: Patient has tried and failed conservative therapies for her chronic low back pain. She is not considered a surgical candidate at this point. Patient did not get any long-term relief with conservative therapies of injections, physical therapy, and oral medications. She did try ice and heat therapies as well with no relief. She was deemed an appropriate candidate for the psychological evaluation for implanted devices. She got 95% relief during her trial. Her pain is a 0 out of 10 today. We will proceed with the implant. The procedure was explained in detail to the patient. She is not on any anticoagulation therapy. Risks and benefits were explained to the patient as well regarding the procedure. She is in agreement that she would like to continue with the procedure. We will plan for the patient to undergo implant for a [employer] spinal cord stimulator for pain in her low back and bilateral lower extremities. Patient was much more functional this week during the trial. We will see her back in the clinic after her implant to reassess her pain. She has been instructed to contact clinic if she has any concerns before her next appointment. The patient and I specifically discussed risk factors for COVID19. These risks include, but are not limited to age greater than 60, heart or lung disease, diabetes, immunosuppression
== END ==
PROVIDERS: PCP Family Medicine; Visit Provider Clinical Nurse Specialist Family Health
DX: M51.16 Intervertebral disc disorders with radiculopathy, lumbar region (principal)
CPT/HCPCS: 99212

== ENCOUNTER → 2020-04-08 17:16 | Outpatient (CLI) | payer BC, SELFPAY | PROVIDERS: Visit Provider Anesthesiology | DX: M54.5 Low back pain (principal) ==

== ENCOUNTER → 2020-04-09 09:56 | Outpatient (CLI) | payer BC, SELFPAY ==
[2020-04-09 10:34] LABS: Basophils # 0.1 K/mm3 (0-0.2); Basophils % 1.9 % (0.1-2.0); Eosinophils # 1.1 K/mm3 (0.0-0.4); Eosinophils % 15.8 % (0.1-12.0); Hemoglobin 13.8 g/dL (12.2-16.2); Lymphocytes # 2.4 K/mm3 (0.7-4.5); Mean Corpuscular HGB Conc 32.9 g/dL (31.8-35.4); Mean Corpuscular Hemoglobin 30.1 pg (27.0-31.2); Mean Corpuscular Volume 91.5 fl (81-99); Mean Platelet Volume 7.7 fl (7.4-10.4); Monocytes # 0.4 K/mm3 (0.1-1.0); Monocytes % 5.6 % (1.7-9.3); Neutrophils % 42.8 % (37.0-80.0); Platelet Count 300 K/mm3 (142-424); Red Blood Count 4.59 M/mm3 (4.20-5.40)
[2020-04-09 11:21] LABS: Chloride 106 mmol/L (98-107); Potassium 4.6 mmoL/L (3.5-5.1); Sodium 141 mmol/L (136-145)
[2020-04-09 11:23] LABS: Coronavirus 19 IgG Antibody Negative (Negative); Coronavirus 19 IgM Antibody Negative (Negative)
[2020-04-09 11:24] LABS: Anion Gap 12.6 mEq/L (5-15); Blood Urea Nitrogen 11 mg/dl (7-17); Calcium 10.1 mg/dl (8.4-10.2); Carbon Dioxide 27 mmol/L (22.0-30.0); Estimated Glomerular Filt Rate 73 ml/min (>60); GFR (African American) 88 ML/MIN (>60); Glucose 99 mg/dl (74-100)
== END ==
PROVIDERS: Visit Provider Anesthesiology
DX: Z01.818 Encounter for other preprocedural examination (principal); M51.36 Other intervertebral disc degeneration, lumbar region
CPT/HCPCS: 36415; 80048; 85025; 86328

== ENCOUNTER 2020-04-10 10:31 | Day surgery (SDC) | payer BC, SELFPAY ==
[2020-04-08 15:12] VITALS: BMI 29.9
[2020-04-10 12:13] VITALS: BP 182/85; PULSE 77; RESP 18; TEMP 36.7; O2SAT 99
--- NOTE | 2020-04-10 13:56 | HMH.PMCON ---
Assessment and Plan - Assessment and plan all Dx Assessment and Plan for all problems:: Impression-degenerative disc disease of the lumbar spine with radiculopathy, postlaminectomy syndrome Plan-placement of pain stimulator system today HPI - Data of Consult Patient: new to practice Consult date: 04/10/20 Requesting Physician: Johnathan Ferraro MD Primary Care Provider: Jass Wellington MD - Consult Narrative History of present illness: Ms. Monahan is a 64 year old female with chronic back pain. She has has degenerative disc disease of the back with radiculopathy as well as postlaminectomy syndrome. She had a pain stimulator trial with significant improvement she comes in today for placement of that system CC: Johnathan Ferraro MD Chronic back pain [facility] History I have reviewed the patient's past medical history: Yes Medical History: Reports:: Hypertension Denies:: Cancer, Diabetes Mellitus Type 1, Diabetes Mellitus Type 2, Internal Pacemaker, MRSA, Seizures *Have you ever received a pneumonia vaccine?: No *Have you received a flu vaccine this season?: Yes Other Medical History: Reports: Arthritis, Hypothyroidism, Thyroid Disease. Denies: Blood Transfusion Reaction Comment:: Chronic back pain. Hypothyroid. Hypertension. Hyperlipidemia Other Surgeries: Yes: Cholecystectomy, Hysterectomy-Total, Other. No: Pacemaker Amputation: No Fractures: No Comment: Operations-hysterectomy, discectomy, cholecystectomy, pain stimulator trial - *Social History Last grade of school completed: High school graduate Smoking Status: Never smoker Alcohol Intake: never Substance Use Type: denies use *Occupational Status:: employed Housing: house Household Members: spouse, significant other *Travel in the last 8 weeks: None Family Hx:: Cancer Review of Systems - Review of Systems Review of systems:: pertinent systems reviewed and negative unless documented below Meds Home Medications Medication Instructions Recorded Confirmed Type Levothyroxine Sodium 100 mg PO DAILY 03/11/18 04/08/20 History [Levothyroxine 100mcg (0.1MG) Tab] Tizanidine HCl [Zanaflex 4mg 4 mg PO TID 09/15/19 04/08/20 History tab] Losartan Potassium 50 mg PO DAILY 04/10/20 04/10/20 History Sulfamethoxazole/Trimethoprim 1 each PO BID #14 tab 04/10/20 Rx [Bactrim DS tablet] Allergies Allergy/AdvReac Type Severity Reaction Status Date / Time No Known Drug Allergies Allergy Unknown Verified 04/08/20 15:14 [NO KNOWN DRUG ALLERGIES] Objective Vital signs: Temp Pulse Resp BP Pulse Ox 98.0 F 77 18 182/85 H 99 04/10/20 12:13 04/10/20 12:13 04/10/20 12:13 04/10/20 12:13 04/10/20 12:13 Comments: Healthy white female in no distress - Routine Chest/Breast/Axilla Exam Comments: Chest clear - *Routine Cardiovascular Exam Present: RRR - *Routine Abdominal Exam Present: soft
--- NOTE | 2020-04-10 14:44 | HMH.ANESCL ---
[facility] Anesthesia Checklist - Structural Data Admitted From: Home Planned Operative Procedure/s: nerve stim implant Consent for Planned Operative Procedure(s) Verified: Yes - Additional verifications Anesthesia Reactions: Yes (N/V) Hx Blood Transfusions: No Blood Transfusion Reaction: No - Airway Assessment C-Spine Mobility Assessed: Yes TMJ Mobility Assessed: Yes Dentition: Dentures-poor fitting - Neurological Assessment Level of Consciousness: Awake, Alert, Appropriate - Anesthesia Plan Anesthesia Risk discussed: Yes Anesthesia Plan: Verified ASA Class: III Anesthesia Type: MAC [facility] History I have reviewed the patient's past medical history: Yes Medical History: Reports:: Hypertension Denies:: Cancer, Diabetes Mellitus Type 1, Diabetes Mellitus Type 2, Internal Pacemaker, MRSA, Seizures *Have you ever received a pneumonia vaccine?: No *Have you received a flu vaccine this season?: Yes Other Medical History: Reports: Arthritis, Hypothyroidism, Thyroid Disease. Denies: Blood Transfusion Reaction Anesthesia experience/problems:: none Other Surgeries: Yes: Cholecystectomy, Hysterectomy-Total, Other. No: Pacemaker Amputation: No Fractures: No - *Social History Last grade of school completed: High school graduate Smoking Status: Never smoker Alcohol Intake: never Substance Use Type: denies use *Occupational Status:: employed Housing: house Household Members: spouse, significant other *Travel in the last 8 weeks: None Family Hx:: Cancer
--- NOTE | 2020-04-10 15:36 | P.OP_ITS ---
Date of procedure: 04/10/20 Pre-op Diagnosis:: Degenerative disc disease of the lumbar spine with radiculopathy, postlaminectomy syndrome Post-op Diagnosis:: Same Procedure performed:: Placement of right pain stimulator generator Surgeon:: Paulino Sterling MD RENEWABLE ENERGY ENGINEER:: Lauro Escoto, Jass Salinas, Marcellus Mckeon, Fer Maldonado, Other Anesthesia: MAC Estimated blood loss (mL): 5 Operative findings:: Not applicable Operative note:: Once adequate IV sedation was obtained the patient was placed prone on the operating table and her back and flank regions were prepped and draped in sterile fashion. Once adequate local sedation was obtained utilizing 1% Xylocaine with epinephrine a paraspinal incision was made by Dr. Valentin there which 2 epidural leads were placed in the epidural space to the area desired by Dr. Valentin. The leads were fixed the paraspinal fascia with fixation devices and 2-0 Prolene sutures. A right flank incision was made in which made a pocket replacement of the reservoir. The both pockets irrigated with antibiotic solution. The leads passed from the paraspinal incision to the pocket incision utilizing tunneling device. Leads connected to the generator which was placed in the pocket. System functioning adequately. Subcutaneous tissues closed with 2-0 Vicryl. Skin closed arm stitches of 4-0 nylon. Wound VAC dressings and a binder applied to the wound. The patient tolerated procedure well and was taken to the recovery room in stable condition. Upon recovery the patient will be discharged home will follow-up in 1 week for removal of the wound VAC system in 2 weeks remove the sutures. Antibiotics x1 week per protocol. The patient tolerated the procedure well. Condition: stable Disposition: PACU Complications:: None
[2020-04-10 15:50] VITALS: BP 136/71; PULSE 89; RESP 20; TEMP 36.4; O2SAT 98
[2020-04-10 16:00] VITALS: BP 141/84; PULSE 73; RESP 18; TEMP 36.4; O2SAT 99
--- NOTE | 2020-04-10 16:00 | P.OP_ITS ---
Date of procedure: 04/10/20 Pre-op Diagnosis:: Disease of lumbar spine with lumbar radiculopathy symptoms Post-op Diagnosis:: Same Procedure performed:: Spinal cord stimulator lead placement epidural x2 for permanent placement spinal cord stimulator Surgeon:: Johnathan Ferraro MD SENIOR REGULATORY AFFAIRS SPECIALIST:: Lauro Escoto Anesthesia: MAC Estimated blood loss (mL): 5 Clinical Note:: This patient is a pleasant 64-year-old white female who we are treating for low back pain with lumbar radiculopathy symptoms and postlaminectomy syndrome. Most of her pain is in her back radiating down both legs. She has failed all previous conservative therapy including physical therapy, injections, previous RF and she is not a candidate for any further surgery. She had a successful psychological evaluation and a successful spinal cord stimulator trial. She presents for permanent placement of her spinal cord stimulator today. Operative findings:: None Operative note:: Informed consent was obtained and the risk and benefits of the procedure was explained to the patient. Patient was taken to the procedure room. She was placed prone on the procedure table. She was prepped and draped in sterile fashion. C-arm fluoroscopy was used to view the lumbar spine. The skin and subcutaneous tissues adjacent to the L2-L3 and L3-L4 interspace were anesthetized using lidocaine. I made an incision and dissected down to the lumbar paraspinous fascia. A 17-gauge epidural needle was inserted and advanced into the L2-L3 interspace. After confirmation of needle placement in the epidural space a stimulating lead was inserted and advanced very easily to the T7-T8 vertebral body. Lead placement was checked in AP and lateral views. A s econd needle was then inserted and advanced again into the L2-L3 interspace. Again after confirmation of needle placement in the epidural space a stimulating lead was inserted and advanced again very easily to the T7-T8 vertebral body. Lead placement was again checked in AP and lateral views. The stylets and needles were removed. The leads were secured to the fascia with anchoring devices in 2-0 Prolene. The generator pocket was created by Dr. Sterling. I tunneled leads from the back to the generator pocket and attached the leads to the generator. Both incisions were irrigated with bacitracin solution. Impedances were checked and found to be okay. Both incisions were then closed with 2-0 Vicryl followed by 4-0 nylon. A wound VAC was placed over both incisions. Patient was placed in an abdominal binder and taken recovery in stable condition. Patient tolerated the procedure well with no complications. Patient was programmed by the [employer] sales representative with good stimulation in all areas of pain. The patient was put on a paresthesia free FAST program Patient was discharged home neurologically intact with good relief of pain symptoms. Disposition: We will follow-up with this patient in 1 week for reprogramming and wound check. We will follow-up in 2 weeks for suture removal and reprogramming if needed. If the patient has any problems or questions she is to call us back in the pain clinic. Condition: stable Disposition: PACU Complications:: None
[2020-04-10 16:10] VITALS: BP 138/80; PULSE 72; RESP 18; TEMP 36.4; O2SAT 100
[2020-04-10 16:20] VITALS: BP 144/77; PULSE 70; RESP 18; TEMP 36.4; O2SAT 100
[2020-04-10 16:50] VITALS: BP 152/88; PULSE 82; RESP 18; TEMP 36.4; O2SAT 100
== END 2020-04-10 16:51 | disposition home or self-care (01) ==
LOC: OR 10:32
PROVIDERS: PCP Family Medicine; Visit Provider Anesthesiology
PROC: (CPT 63685; principal; 2020-04-10 12:30)
DX: M51.16 Intervertebral disc disorders with radiculopathy, lumbar region (principal); M96.1 Postlaminectomy syndrome, not elsewhere classified; I10 Essential (primary) hypertension; M19.90 Unspecified osteoarthritis, unspecified site; E03.9 Hypothyroidism, unspecified
CPT/HCPCS: 63685; 63650 ×2; 96374; C1778; C1820; J3370

== ENCOUNTER → 2020-04-18 08:32 | Outpatient (POV) | payer BC, SELFPAY ==
--- NOTE | 2020-04-18 09:03 | P.CONS_ITS ---
[facility] Pain Management SOAP Note Subjective:: Patient is a 64-year-old white female who presents today for follow-up after [employer] spinal cord stimulator placement. She is being treated for degenerative disc disease lumbar spine with lumbar radiculopathy symptoms. She is also treated for postlaminectomy syndrome lumbar spine. Patient says that she has 0 out of 10 pain at this time. She will have her wound VAC removed today. She says she is doing well overall. Review of Systems General: No recent weight changes, no fever, no sleep disturbances Respiratory: No cough, no shortness of air, no recurring pulmonary infections Cardiovascular/peripheral vascular: No chest pain, no palpitations, no edema, no shortness of breath Gastrointestinal: No new onset incontinence, normal bowel movements reported Genitourinary: No new onset incontinence Musculoskeletal: Denies back pain Psychiatric: Normal mood/affect Neurological: [Denies weakness in extremities], [denies balance issues] Objective:: Physical exam General: Alert and oriented x3, no acute distress, pleasant and cooperative, [on room air] Lungs: Respirations even and unlabored, symmetrical chest expansion Eyes: PERRL Musculoskeletal: Flexion and extension of [lumbar] spine somewhat guarded secondary to pain, deep tendon reflexes normal, strength in upper and lower extremities [5/5], [abnormal gait noted] Neurological: Speech clear, nuclear logging engineer equal, no gross sensory deficit Skin: Incision well approximated, no redness, no drainage, no edema noted to site, sutures intact Assessment:: Degenerative disc disease lumbar spine with lumbar radiculopathy symptoms, postlaminectomy syndrome lumbar spine Plan:: Patient is doing well overall. She was instructed to continue to wear her abdominal binder. We will see her back in the clinic in 2 weeks to remove her sutures. She is doing well she is with her back pain. She has been instructed to contact clinic if she has any concerns before next appointment. The patient and I specifically discussed risk factors for COVID19. These risks include, but are not limited to age greater than 60, heart or lung disease, diabetes, immunosuppression, and travel. We also discussed NSAIDs may worsen COVID19 infection or symptoms. Patient should not use NSAIDs to treat COVID19 signs or symptoms. Patient was also informed that any type of corticosteroid of any form (oral or injection) will decrease the patient's immune system response and may increase the likelihood of COVID19 infection and symptoms[address] Dr. Ferraro has reviewed this note and agrees with this plan of care. This note was dictated using voice recognition software and make contain errors or omissions. [facility] History I have reviewed the patient's past medical history: Yes Medical History: Reports:: Hypertension Denies:: Cancer, Diabetes Mellitus Type 1, Diabetes Mellitus Type 2, Internal Pacemaker, MRSA, Seizures *Have you ever received a pneumonia vaccine?: No *Have you received a flu vaccine this season?: Yes Other Medical History: Reports: Arthritis, Hypothyroidism, Thyroid Disease. Denies: Blood Transfusion Reaction Other Surgeries: Yes: Cholecystectomy, Hysterectomy-Total, Other. No: Pacemaker Amputation: No Fractures: No - *Social History Smoking Status: Never smoker Alcohol Intake: never Substance Use Type: denies use *Occupational Status:: employed Housing: house Household Members: spouse, significant other *Travel in the last 8 weeks: None Family Hx:: Cancer
[2020-04-18 09:10] VITALS: BP 122/71; PULSE 65; RESP 18; TEMP 36.4; O2SAT 98; BMI 29.9
== END ==
PROVIDERS: Visit Provider Anesthesiology
DX: M51.16 Intervertebral disc disorders with radiculopathy, lumbar region (principal); M96.1 Postlaminectomy syndrome, not elsewhere classified
CPT/HCPCS: 99212

== ENCOUNTER → 2020-05-06 09:20 | Outpatient (POV) | payer BC, SELFPAY ==
--- NOTE | 2020-05-06 09:48 | P.CONS_ITS ---
[facility] Pain Management SOAP Note Subjective:: Patient is a 64-year-old white female who presents today for follow-up after neurostimulator implant. Patient stitches were removed today. Patient is well- healed. No sign symptoms of infection. She rates her pain a 0 out of 10 overall doing extremely well she is becoming more active. We will release her to work in 2 weeks. She will have to do light duty for a short period of time and then she can move forward with no restrictions. ROS General: no recent weight change, no fever, no sleep disturbances Respiratory: no cough, no shortness of air, no recurring pulmonary infections Cardiovascular/Peripheral Vascular: No chest pain, No palpitations, no edema, no shortness of breath. Gastrointestinal: no new onset incontinence, normal bowel movements reported Genitourinary: no new onset incontinence Musculoskeletal: Back pain at times Psychiatric: normal mood/ affect Neurological: [denies new onset weakness in extremities], [denies new onset balance issues] Objective:: Physical Exam General: Alert and oriented x3, no acute distress, pleasant and cooperative, [on room air] Lungs: Resps E/U, Symmetrical chest expansion, Eyes: PERRL Musculoskeletal: Flexion and extension of lumbar spine somewhat guarded secondary to pain, deep tendon reflexes normal, strength in upper and lower extremities [5/5], slightly antalgic gait noted Neurological: speech clear, financial sales professional equal, no gross sensory deficits Assessment:: Degenerative disc disease lumbar spine lumbar radiculopathy symptoms postlaminectomy syndrome lumbar spine Plan:: Patient is doing well overall. Patient will be able to go back to work for light duty in 2 weeks. She has been instructed to call the office if she has any issues prior to her next appointment. We will see her back in [address] Ferraro has reviewed this note and agrees with this plan of care. This note was dictated using voice recognition software and may contain errors or omissions [facility] History I have reviewed the patient's past medical history: Yes Medical History: Reports:: Hypertension Denies:: Cancer, Diabetes Mellitus Type 1, Diabetes Mellitus Type 2, Internal Pacemaker, MRSA, Seizures *Have you ever received a pneumonia vaccine?: Yes *Have you received a flu vaccine this season?: Yes Other Medical History: Reports: Arthritis, Hypothyroidism, Thyroid Disease. Denies: Blood Transfusion Reaction Other Surgeries: Yes: Cholecystectomy, Hysterectomy-Total, Other. No: Pacemaker Amputation: No Fractures: No - *Social History Smoking Status: Never smoker Alcohol Intake: never Substance Use Type: denies use *Occupational Status:: other Housing: house Household Members: spouse, significant other *Travel in the last 8 weeks: None Family Hx:: Cancer
[2020-05-06 09:53] VITALS: BP 154/93; PULSE 83; RESP 18; TEMP 36.8; O2SAT 98; BMI 29.9
== END ==
PROVIDERS: PCP Family Medicine; Visit Provider Clinical Nurse Specialist Family Health
DX: M51.16 Intervertebral disc disorders with radiculopathy, lumbar region (principal); M96.1 Postlaminectomy syndrome, not elsewhere classified
CPT/HCPCS: 99212; G0463

== ENCOUNTER → 2020-07-11 09:20 | Outpatient (POV) | payer BC, SELFPAY ==
[2020-07-11 09:30] VITALS: BP 125/82; PULSE 71; RESP 18; O2SAT 98; BMI 29.9
--- NOTE | 2020-07-11 09:34 | P.CONS_ITS ---
[facility] Pain Management SOAP Note Subjective:: Patient is a 64-year-old white female who presents today for follow-up after neurostimulator implant. She has 0 pain overall doing extremely well the only issue she have is lifting heavy things. Patient is continuing to work. Patient overall doing well. ROS General: no recent weight change, no fever, no sleep disturbances Respiratory: no cough, no shortness of air, no recurring pulmonary infections Cardiovascular/Peripheral Vascular: No chest pain, No palpitations, no edema, no shortness of breath. Gastrointestinal: no new onset incontinence, normal bowel movements reported Genitourinary: no new onset incontinence Musculoskeletal: Back pain at times, Psychiatric: normal mood/ affect Neurological: [denies new onset weakness in extremities], [denies new onset balance issues] Objective:: Physical Exam General: Alert and oriented x3, no acute distress, pleasant and cooperative, [on room air] Lungs: Resps E/U, Symmetrical chest expansion, Eyes: PERRL Musculoskeletal: Flexion and extension of lumbar spine somewhat guarded secondary to pain, deep tendon reflexes normal, strength in upper and lower extremities [5/5], [abnormal gait noted] Neurological: speech clear, production estimator equal, no gross sensory deficits Assessment:: Degenerative disc disease lumbar spine lumbar radiculopathy symptoms postlaminectomy syndrome lumbar spine Plan:: . Patient is overall doing well. Patient understands that she can call our office at any time. She also understands that she can contact the tax compliance representative for any reprogramming needs. She can return to work with no more lifting than 20 pounds. I will see her back in 3 months reassess her symptoms at that time. Dr. Ferraro has reviewed this note and agrees with this plan of care. This note was dictated using voice recognition software and may contain errors or omissions [facility] History I have reviewed the patient's past medical history: Yes Medical History: Reports:: Hypertension Denies:: Cancer, Diabetes Mellitus Type 1, Diabetes Mellitus Type 2, Internal Pacemaker, MRSA, Seizures *Have you ever received a pneumonia vaccine?: Yes *Have you received a flu vaccine this season?: Yes Other Medical History: Reports: Arthritis, Hypothyroidism, Thyroid Disease. Denies: Blood Transfusion Reaction Other Surgeries: Yes: Cholecystectomy, Hysterectomy-Total, Other. No: Pacemaker Amputation: No Fractures: No - *Social History Smoking Status: Never smoker Alcohol Intake: never Substance Use Type: denies use *Occupational Status:: other Housing: house Household Members: spouse, significant other *Travel in the last 8 weeks: None Family Hx:: Cancer
== END ==
PROVIDERS: PCP Family Medicine; Visit Provider Clinical Nurse Specialist Family Health
DX: M51.16 Intervertebral disc disorders with radiculopathy, lumbar region (principal); M96.1 Postlaminectomy syndrome, not elsewhere classified
CPT/HCPCS: 99212; G0463

== ENCOUNTER → 2020-10-24 09:48 | Outpatient (POV) | payer BC, SELFPAY ==
[2020-10-24 10:10] VITALS: BP 156/66; PULSE 73; RESP 18; O2SAT 99; BMI 30.7
--- NOTE | 2020-10-24 12:34 | HMH.PAINSOAP ---
[facility] Pain Management SOAP Note Subjective:: Patient is a 64-year-old white female who presents today for follow-up. Patient does have a spinal cord stimulator in place for bilateral low back pain. She is here today with complaints of bilateral knee pain. She is having difficult difficulty standing, walking and going upstairs. Her pain is a 4 out of 10. Patient says she has gone to see orthopedic surgeon who has informed the patient she is likely going to need bilateral knee replacements, however, she would like to postpone this as long as possible. She does do home stretching. She wants to postpone injective therapy as well at this time. We discussed applying topical cream to the area to see if this helps. If it does not help, she may need to undergo injective therapy. She would like to try noninvasive therapy first. Review of Systems General: No recent weight changes, no fever, no sleep disturbances Respiratory: No cough, no shortness of air, no recurring pulmonary infections Cardiovascular/peripheral vascular: No chest pain, no palpitations, no edema, no shortness of breath Gastrointestinal: No new onset incontinence, normal bowel movements reported Genitourinary: No new onset incontinence Musculoskeletal: Bilateral knee pain Psychiatric: Normal mood/affect Neurological: [Denies weakness in extremities], [denies balance issues] Objective:: Physical exam General: Alert and oriented x3, no acute distress, pleasant and cooperative, [on room air] Lungs: Respirations even and unlabored, symmetrical chest expansion Eyes: PERRL Musculoskeletal: Flexion and extension of bilateral lower extremities somewhat guarded secondary to pain, deep tendon reflexes normal, strength in upper and lower extremities [5/5], [abnormal gait noted] Neurological: Speech clear, linen room supervisor equal, no gross sensory deficit Assessment:: Bilateral knee pain, osteoarthritis bilateral knees Plan:: We will order the patient compounding cream to apply topically to her bilateral knees. If she does not get relief with the topical compounded cream, we will schedule her for bilateral intra-articular knee injections. We will see her back afterwards for reevaluation of symptoms in 1 month. [facility] History I have reviewed the patient's past medical history: Yes Medical History: Reports:: Hypertension Denies:: Cancer, Diabetes Mellitus Type 1, Diabetes Mellitus Type 2, Internal Pacemaker, MRSA, Seizures *Have you ever received a pneumonia vaccine?: No *Have you received a flu vaccine this season?: No Other Medical History: Reports: Arthritis, Hypothyroidism, Thyroid Disease. Denies: Blood Transfusion Reaction Other Surgeries: Yes: Cholecystectomy, Hysterectomy-Total, Other. No: Pacemaker Amputation: No Fractures: No - *Social History Smoking Status: Never smoker Alcohol Intake: never Substance Use Type: denies use *Occupational Status:: employed Housing: house Household Members: spouse, significant other *Travel in the last 8 weeks: None Family Hx:: Cancer
== END ==
PROVIDERS: PCP Family Medicine; Visit Provider Clinical Nurse Specialist Family Health
DX: M17.0 Bilateral primary osteoarthritis of knee (principal)
CPT/HCPCS: 99212; G0463

== ENCOUNTER → 2020-11-25 10:29 | Outpatient (POV) | payer BC, SELFPAY ==
[2020-11-25 10:34] VITALS: BP 181/77; PULSE 71; RESP 18; O2SAT 99; BMI 31.6
--- NOTE | 2020-11-25 10:49 | XR_ITS ---
PROCEDURE: XR KNEE LT 3V CLINICAL INDICATION: BILATERAL KNEE PAIN COMPARISON: CR [id number] KNEE-3 VIEWS-RT from 09/07/2013 FINDINGS: No fracture or dislocation. No lytic or blastic change. There is normal mineralization. Slight decrease in the joint space medially. Other findings:None. IMPRESSION: Slight decrease in medial joint space suggesting minimal osteoarthritic change otherwise negative Dictated by: Anibal Jimenes MD 11/25/2020 11:59 Anibal Jimenes MD in [place] 11/25/2020 11:59
--- NOTE | 2020-11-25 10:49 | XR_ITS ---
PROCEDURE: XR KNEE RT 3V CLINICAL INDICATION: BILATERAL KNEE PAIN COMPARISON: CR [id number] KNEE-3 VIEWS-RT from 09/07/2013 FINDINGS: No fracture or dislocation. No lytic or blastic change. There is normal mineralization. There is very slight decrease in the joint space medially with very minimal osteophyte formation at the proximal tibia medially suggesting minimal osteoarthritic change. Overall not significantly changed. Other findings:None. IMPRESSION: Minimal osteoarthritic change medial compartment Dictated by: Anibal Jimenes MD 11/25/2020 11:58 Anibal Jimenes MD in [place] 11/25/2020 11:58
--- NOTE | 2020-11-25 11:13 | HMH.PAINSOAP ---
[facility] Pain Management SOAP Note Subjective:: Patient is a pleasant 65-year-old white female who presents today for follow-up. She is here today with increasing pain in her bilateral knees. At the last visit she was prescribed compounding cream to apply to bilateral knees. She is not getting adequate relief with this prescription. She is requesting intra-articular knee injections today. She has had injections in the past that did provide adequate relief in her symptoms. She has not had updated imaging of her knees. Her previous x-rays were from 2019 they did not reveal significant arthritic changes. Patient is continuing to have increasing discomfort with prolonged walking and standing, especially going up stairs. She rates her pain today a 2 out of 10. She has tried conservative therapies in the past such as physical therapy, oral medications, and application of ice and heat without any lasting relief in her symptoms. Patient does have a history of spinal cord stimulation implantation, this is working well to control her back pain. Review of Systems General: No recent weight changes, no fever, no sleep disturbances Respiratory: No cough, no shortness of air, no recurring pulmonary infections Cardiovascular/peripheral vascular: No chest pain, no palpitations, no edema, no shortness of breath Gastrointestinal: No new onset incontinence, normal bowel movements reported Genitourinary: No new onset incontinence Musculoskeletal: Bilateral knee pain Psychiatric: [Normal mood/affect] Neurological: [Denies weakness in extremities], [denies balance issues] Objective:: Physical exam General: Alert and oriented x3 no acute distress, pleasant and cooperative, [on room air] Lungs: Respirations even and unlabored, symmetrical chest expansion Eyes: PERRL Musculoskeletal: Flexion and extension of the bilateral knees guarded, deep tendon reflexes normal, strength in upper and lower extremities 5 out of 5 normal gait noted, tenderness to palpation of medial aspect of proximal tibia bilaterally mild effusion noted today. Neurological: Speech clear, it security engineer equal, no gross sensory deficit Assessment:: Bilateral knee pain, osteoarthritis bilateral knees Plan:: We will order updated x-rays standing views of bilateral knees. We will also schedule the patient for bilateral intra-articular knee injections. Patient is not currently on any anticoagulation therapy. She is welcome to contact the clinic if she has any questions or concerns prior to her injection date. Dr. Ferraro has reviewed this note and agrees with this plan of care. This note was dictated using voice recognition software and make contain errors or omissions. [facility] History Medical History: Reports:: Hypertension Denies:: Cancer, Diabetes Mellitus Type 1, Diabetes Mellitus Type 2, Internal Pacemaker, MRSA, Seizures *Have you ever received a pneumonia vaccine?: No *Have you received a flu vaccine this season?: No Other Medical History: Reports: Arthritis, Hypothyroidism, Thyroid Disease. Denies: Blood Transfusion Reaction Other Surgeries: Yes: Cholecystectomy, Hysterectomy-Total, Other. No: Pacemaker Amputation: No Fractures: No - *Social History Smoking Status: Never smoker Alcohol Intake: never Substance Use Type: denies use *Occupational Status:: unemployed Housing: house Household Members: spouse, significant other *Travel in the last 8 weeks: None Family Hx:: Cancer
== END ==
PROVIDERS: Visit Provider Family Medicine
DX: M17.0 Bilateral primary osteoarthritis of knee (principal); M25.561 Pain in right knee; M25.562 Pain in left knee
CPT/HCPCS: 73562; 99212; G0463

== ENCOUNTER → 2020-11-28 14:08 | Outpatient (POV) | payer BC, SELFPAY ==
[2020-11-28 14:11] VITALS: BP 151/77; PULSE 72; RESP 20; O2SAT 98; BMI 32.4
--- NOTE | 2020-11-28 15:23 | HMH.PAINSOAP ---
[facility] Pain Management SOAP Note Subjective:: Patient is a pleasant 65-year-old white female who presents today with new complaint of increasing pain over her spinal cord stimulator site. The patient states that she started having increasing pain over her battery site yesterday. 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 She is concerned that the increased activity has caused issues with her spinal cord stimulator. She is continuing to get relief in her leg and low back pain with her spinal cord stimulator. She does feel as though it is functioning appropriately. The patient is concerned and wanted someone to look in her incision to ensure that her stimulator appeared to be okay. The patient states that the pain was worse yesterday as compared to today. She feels as though it is more in the muscle around her stimulator. Review of Systems General: No recent weight changes, no fever, no sleep disturbances Respiratory: No cough, no shortness of air, no recurring pulmonary infections Cardiovascular/peripheral vascular: No chest pain, no palpitations, no edema, no shortness of breath Gastrointestinal: No new onset incontinence, normal bowel movements reported Genitourinary: No new onset incontinence Musculoskeletal: [Low back pain] Psychiatric: [Normal mood/affect] Neurological: [Denies weakness in extremities], [denies balance issues] Objective:: Physical exam General: Alert and oriented x3 no acute distress, pleasant and cooperative, [on room air] Lungs: Respirations even and unlabored, symmetrical chest expansion Eyes: PERRL Musculoskeletal: Flexion and extension of the lumbar spine nonguarded, deep tendon reflexes normal, strength in upper and lower extremities 5 out of 5 normal gait noted Neurological: Speech clear, insurance solicitor equal, no gross sensory deficit Integumentary: No swelling, redness noted over her spinal cord stimulator incisions. Assessment:: Degenerative disc disease of the lumbar spine, lumbar radiculopathy, bilateral knee pain, osteoarthritis bilateral knees Plan:: I will prescribe Flexeril to help with the patient's muscle pain. I did offer to order x-rays of her lumbar spine for further evaluation of her spinal cord stimulator to ensure placement of her leads. The patient is refusing x-rays today. She is actually to be scheduled in the clinic for injections to bilateral knees. If she has any questions or concerns prior to that appointment date she is welcome to contact the clinic. Dr. Ferraro has reviewed this note and agrees with this plan of care. This note was dictated using voice recognition software and make contain errors or omissions. [facility] History Medical History: Reports:: Hypertension Denies:: Cancer, Diabetes Mellitus Type 1, Diabetes Mellitus Type 2, Internal Pacemaker, MRSA, Seizures *Have you ever received a pneumonia vaccine?: No *Have you received a flu vaccine this season?: No Other Medical History: Reports: Arthritis, Hypothyroidism, Thyroid Disease. Denies: Blood Transfusion Reaction Other Surgeries: Yes: Cholecystectomy, Hysterectomy-Total, Other. No: Pacemaker Amputation: No Fractures: No - *Social History Smoking Status: Never smoker Alcohol Intake: never Substance Use Type: denies use *Occupational Status:: employed Housing: house Household Members: spouse, significant other *Travel in the last 8 weeks: None Family Hx:: Cancer
== END ==
PROVIDERS: Visit Provider Family Medicine
DX: M51.16 Intervertebral disc disorders with radiculopathy, lumbar region (principal); M17.0 Bilateral primary osteoarthritis of knee
CPT/HCPCS: 99212; G0463

== ENCOUNTER 2020-12-06 11:10 | Day surgery (SDC) | payer BC, SELFPAY ==
[2020-12-06 11:30] VITALS: BP 179/74; PULSE 78; RESP 18; TEMP 36.7; O2SAT 97; BMI 31.6
[2020-12-06 11:43] VITALS: BP 183/80; PULSE 76; RESP 18; O2SAT 98
[2020-12-06 11:44] VITALS: BP 184/77; PULSE 80; RESP 18; O2SAT 98
--- NOTE | 2020-12-06 11:55 | HMH.PMPROC ---
- Procedure Date: 12/06/20 Time: 11:55 Anesthesiologist:: Johnathan Ferraro MD Complications:: None Pre-procedure Diagnosis:: Bilateral knee pain with degenerative osteoarthritis Post-procedure Diagnosis:: Same Indications for Procedure:: Patient is a pleasant 65-year-old white female who we are treating for bilateral knee pain. She also has a spinal cord stimulator which will be interrogated today with the [facility] [employer] [facility] pharmacy sales representative. She has benefited from her stimulator. We will do bilateral intra-articular knee injections today to help her with her pain symptoms. Procedure Details:: Bilateral intra-articular knee injection Informed consent was obtained risk and benefits of the procedure were explained to the patient. Patient was taken the procedure room. Both knees were prepped using ChloraPrep. A 25-gauge needle was used first medially then laterally to inject 10 mL bupivacaine 0.25% and Depo-Medrol 40 mg into each knee. Patient tolerated the procedure well with no complications. Plan and Disposition:: We will follow-up with this patient in 2 weeks. Will reevaluate symptoms at that time.
[2020-12-06 12:00] VITALS: BP 150/60; PULSE 64; RESP 20; O2SAT 98
== END 2020-12-06 12:00 | disposition home or self-care (01) ==
LOC: SC.PAINP 11:13
PROVIDERS: PCP Family Medicine; Visit Provider Anesthesiology
DX: M17.0 Bilateral primary osteoarthritis of knee (principal); I10 Essential (primary) hypertension; E03.9 Hypothyroidism, unspecified; J45.909 Unspecified asthma, uncomplicated; Z90.49 Acquired absence of other specified parts of digestive tract
CPT/HCPCS: 20610; J1040

== ENCOUNTER → 2021-01-09 15:02 | Outpatient (POV) | payer BC, SELFPAY ==
[2021-01-09 15:09] VITALS: BP 160/79; PULSE 71; RESP 18; O2SAT 97; BMI 30.7
--- NOTE | 2021-01-09 15:17 | HMH.PAINSOAP ---
[facility] Pain Management SOAP Note Subjective:: Patient is a pleasant 65-year-old white female who presents today for follow-up after bilateral intra-articular knee injections. She is being treated for degenerative osteoarthritis bilateral knees and chronic knee pain. Patient says that she got excellent relief with the injection and is continuing to get relief. The injections were performed on 12/06/2020. She is not having any pain at this time. Patient says she is much more functional and active since having the injections. Review of Systems General: No recent weight changes, no fever, no sleep disturbances Respiratory: No cough, no shortness of air, no recurring pulmonary infections Cardiovascular/peripheral vascular: No chest pain, no palpitations, no edema, no shortness of breath Gastrointestinal: No new onset incontinence, normal bowel movements reported Genitourinary: No new onset incontinence Musculoskeletal: No pain at this time Psychiatric: [Normal mood/affect] Neurological: [Denies weakness in extremities], [denies balance issues] Objective:: Physical exam General: Alert and oriented x3, no acute distress, pleasant and cooperative, [on room air] Lungs: Respirations even and unlabored, symmetrical chest expansion Eyes: PERRL Musculoskeletal: Flexion and extension of [] [spine] nonguarded, strength in upper and lower extremities [5/5], normal gait noted Neurological: Speech clear, [terrazzo roller equal], no gross sensory deficit Assessment:: Osteoarthritis bilateral knees, bilateral knee pain Plan:: We will plan to follow-up with patient in 3 months for reevaluation symptoms. She has been instructed to contact clinic if she has any concerns for next ointment. Patient has been instructed to contact the clinic with any concerns before the next appointment. Dr. Ferraro has reviewed this note and agrees with this plan of care. This note was dictated using voice recognition software and make contain errors or omissions. [facility] History I have reviewed the patient's past medical history: Yes Medical History: Reports:: Hypertension Denies:: Cancer, Diabetes Mellitus Type 1, Diabetes Mellitus Type 2, Internal Pacemaker, MRSA, Seizures *Have you ever received a pneumonia vaccine?: No *Have you received a flu vaccine this season?: No Other Medical History: Reports: Arthritis, Hypothyroidism, Thyroid Disease. Denies: Blood Transfusion Reaction Other Surgeries: Yes: Cholecystectomy, Hysterectomy-Total, Other (back, bladder tuck, eye sx). No: Pacemaker Amputation: No Fractures: No - *Social History Smoking Status: Never smoker Alcohol Intake: never Substance Use Type: denies use *Occupational Status:: employed Housing: house Household Members: spouse *Travel in the last 8 weeks: None Family Hx:: Cancer
== END ==
PROVIDERS: Visit Provider Clinical Nurse Specialist Family Health
DX: M17.0 Bilateral primary osteoarthritis of knee (principal)
CPT/HCPCS: 99212; G0463

== ENCOUNTER → 2021-10-09 08:26 | Outpatient (POV) | payer BC, SELFPAY ==
[2021-10-09 09:46] VITALS: BP 151/61; PULSE 72; RESP 20; TEMP 36.6; O2SAT 99; BMI 30.7
--- NOTE | 2021-10-09 10:53 | P.CONS_ITS ---
[facility] Pain Management SOAP Note Subjective:: Patient is a pleasant 65-year-old female who presents today for follow-up. Patient is currently being treated for osteoarthritis of bilateral knees. We have been managing this patient with injective therapy. Her last injection was in November 2020. She typically gets significant relief from these injections. Patient presents today with worsening bilateral knee pain. She states that she may need repeat injections in her knees. Rates pain today as 6 out of 10. She takes OTC NSAIDs for pain but it is providing minimal relief. She is not taking any scheduled medications. Michael [id number], MEQ 0. Review of Systems: General: No recent weight changes, no fever, no sleep disturbances Respiratory: No cough, no shortness of air, no recurring pulmonary infections Cardiovascular/peripheral vascular: No chest pain, no palpitations, no edema, no shortness of breath Gastrointestinal: No new onset incontinence, normal bowel movements reported Genitourinary: No new onset incontinence Musculoskeletal: Bilateral knee pain Psychiatric: [Normal mood/affect] Neurological: [Denies weakness in extremities], [denies balance issues] Objective:: Physical Exam: General: Alert and oriented x3, no acute distress, pleasant and cooperative Lungs: Respirations even and unlabored, symmetrical chest expansion Eyes: PERRL Musculoskeletal: Limited range of motion of bilateral knees secondary to pain Neurological: Speech clear, no gross sensory deficit Assessment:: Osteoarthritis of bilateral knees Plan:: Patient presents today with worsening bilateral knee pain. We will schedule the patient for intra-articular injections of bilateral knees. I will also start the patient on diclofenac 75 mg twice a day #20 tabs as needed. Patient is not on any blood thinners. Patient has been instructed to contact the clinic with any concerns before the next appointment. Dr. Ferraro has reviewed this note and agrees with this plan of care. This note was dictated using voice recognition software and make contain errors or omissions. [facility] History Medical History: Reports:: Hypertension Denies:: Cancer, Diabetes Mellitus Type 1, Diabetes Mellitus Type 2, Internal Pacemaker, MRSA, Seizures *Have you ever received a pneumonia vaccine?: Yes *Have you received a flu vaccine this season?: No Other Medical History: Reports: Arthritis, Hypothyroidism, Thyroid Disease. Denies: Blood Transfusion Reaction Other Surgeries: Yes: Cholecystectomy, Hysterectomy-Total, Other (back, bladder tuck, eye sx). No: Pacemaker Amputation: No Fractures: No - *Social History Smoking Status: Never smoker Alcohol Intake: never Substance Use Type: denies use *Occupational Status:: other Housing: house Household Members: spouse *Travel in the last 8 weeks: None Family Hx:: Cancer
== END ==
PROVIDERS: Visit Provider Student in an Organized Health Care Education/Training Program
DX: M17.0 Bilateral primary osteoarthritis of knee (principal)
CPT/HCPCS: 99212; G0463

== ENCOUNTER 2021-10-24 13:30 | Day surgery (SDC) | payer BC, SELFPAY ==
[2021-10-24 13:56] VITALS: BP 152/86; PULSE 75; RESP 18; TEMP 37; O2SAT 99; BMI 30.7
[2021-10-24 14:25] VITALS: BP 132/77; PULSE 74; RESP 18
[2021-10-24 14:26] VITALS: BP 135/78; PULSE 74; RESP 18
--- NOTE | 2021-10-24 14:35 | HMH.PMPROC ---
- Procedure Date: 10/24/21 Time: 14:35 Anesthesiologist:: Johnathan Ferraro MD Complications:: None Pre-procedure Diagnosis:: Bilateral knee pain with degenerative osteoarthritis both knees Post-procedure Diagnosis:: Same Indications for Procedure:: Patient is a pleasant 65-year-old white female who we are treating for bilateral knee pain with degenerative osteoarthritis both knees. She has increasing pain in her right knee on the medial aspect. We will do bilateral intra-articular knee injections to help her with her bilateral knee pain today. Procedure Details:: Bilateral intra-articular knee injections Informed consent was obtained the risk and benefits of the procedure were explained to the patient. Patient was taken the procedure room. Both knees were prepped using ChloraPrep. A 25-gauge needle was used first medially then laterally to inject 10 mL bupivacaine 0.25% bupivacaine and Depo-Medrol 40 mg into each knee. We used a total of 80 mg Depo-Medrol for both knees. Patient tolerated the procedure well with no complications. Plan and Disposition:: We will follow-up with her in 2 weeks. Will reevaluate symptoms at that time.
[2021-10-24 14:45] VITALS: BP 169/89; PULSE 74; RESP 18; O2SAT 100
== END 2021-10-24 14:45 | disposition home or self-care (01) ==
LOC: SC.PAINP 13:34
PROVIDERS: PCP Family Medicine; Visit Provider Anesthesiology
DX: M17.0 Bilateral primary osteoarthritis of knee (principal)
CPT/HCPCS: 20610; J1030

== ENCOUNTER → 2021-12-01 09:23 | Outpatient (POV) | payer BC, SELFPAY ==
[2021-12-01 09:47] VITALS: BP 156/76; PULSE 76; RESP 20; O2SAT 99; BMI 31.6
--- NOTE | 2021-12-01 10:05 | HMH.PAINSOAP ---
[facility] Pain Management SOAP Note Subjective:: Patient is a pleasant 66-year-old female who presents today for follow-up. We are currently treating the patient for bilateral knee pain with degenerative osteoarthritis of both knees. Patient had a bilateral intra-articular knee injection on 10/24/2021. Patient states that she has had 90% improvement since this injection. She states she still feels like it is continuing to help. She has been able to increase her activity since injection. This is her second intra-articular knee injection today she rates her pain a 3 out of 10. She states the pain is primarily in her knees and her legs. She states she does have leg cramping that is more bothersome at night. We have done injective therapy in the past. Her last bilateral intra-articular knee injections lasted almost 1 year per patient. Her Michael is [id number]. It has been reviewed and appropriate. Review of Systems: General: No recent weight changes, no fever, no sleep disturbances Respiratory: No cough, no shortness of air, no recurring pulmonary infections Cardiovascular/peripheral vascular: No chest pain, no palpitations, no edema, no shortness of breath Gastrointestinal: No new onset incontinence, normal bowel movements reported Genitourinary: No new onset incontinence Musculoskeletal: Bilateral knee pain, leg pain Psychiatric: [Normal mood/affect] Neurological: [Denies weakness in extremities], [denies balance issues] Objective:: Physical Exam: General: Alert and oriented x3, no acute distress, pleasant and cooperative Lungs: Respirations even and unlabored, symmetrical chest expansion Eyes: PERRL Musculoskeletal: Flexion and extension of bilateral knees, legs somewhat guarded secondary to pain, [antalgic gait noted]. Point tenderness bilateral calves Neurological: Speech clear, no gross sensory deficit Assessment:: Bilateral knee pain with degenerative osteoarthritis both knees Plan:: Patient has had significant relief with bilateral intra-articular knee injections. She has ongoing improvement in symptoms. I have discussed with the patient regarding starting restless leg syndrome medication. I will prescribe ropinirole 0.25 mg daily for 14 days. Patient will return to clinic in 2 weeks for follow-up and reevaluation of symptoms. Patient has been instructed to contact the clinic with any concerns before the next appointment. Dr. Ferraro has reviewed this note and agrees with this plan of care. This note was dictated using voice recognition software and make contain errors or omissions. [facility] History I have reviewed the patient's past medical history: Yes Medical History: Reports:: Hyperlipidemia, Hypertension Denies:: Cancer, Diabetes Mellitus Type 1, Diabetes Mellitus Type 2, Internal Pacemaker, MRSA, Seizures *Have you ever received a pneumonia vaccine?: Yes *Have you received a flu vaccine this season?: No Other Medical History: Reports: Arthritis, Hypothyroidism, Thyroid Disease. Denies: Blood Transfusion Reaction Other Surgeries: Yes: Cholecystectomy, Hysterectomy-Total, Other (back, bladder tuck, eye sx). No: Pacemaker Amputation: No Fractures: No - *Social History Smoking Status: Never smoker Alcohol Intake: never Substance Use Type: denies use *Occupational Status:: unemployed Housing: house Household Members: spouse *Travel in the last 8 weeks: None Family Hx:: No significant family history
== END ==
PROVIDERS: PCP Family Medicine; Visit Provider Nurse Practitioner Family
DX: M17.0 Bilateral primary osteoarthritis of knee (principal)
CPT/HCPCS: 99212; G0463

== ENCOUNTER → 2021-12-15 09:04 | Outpatient (POV) | payer BC, SELFPAY ==
[2021-12-15 09:14] VITALS: BP 161/89; PULSE 83; RESP 20; TEMP 36.6; O2SAT 98; BMI 31.6
--- NOTE | 2021-12-15 09:27 | P.CONS_ITS ---
[facility] Pain Management SOAP Note Subjective:: Patient is a pleasant 66-year-old female who presents today for follow-up. Only treating the patient for bilateral knee pain with degenerative osteoarthritis of both knees, restless leg syndrome. Today the patient rates her pain a 0 out of 10. Patient states she is doing well. At her last visit I prescribed her ropinirole 0.25 mg daily. She states this medication is working well. She stated that on her first night of taking the medication her leg cramping stopped and she was able to get a good night sleep. She is requesting a refill of this medication at today's visit. She has been able to increase her activity. Patient is not currently on any scheduled medications. Her Michael is [phone]. Is been reviewed and appropriate. Review of Systems: General: No recent weight changes, no fever, no sleep disturbances Respiratory: No cough, no shortness of air, no recurring pulmonary infections Cardiovascular/peripheral vascular: No chest pain, no palpitations, no edema, no shortness of breath Gastrointestinal: No new onset incontinence, normal bowel movements reported Genitourinary: No new onset incontinence Musculoskeletal: Knee pain, bilateral leg pain Psychiatric: [Normal mood/affect] Neurological: [Denies weakness in extremities], [denies balance issues] Objective:: Physical Exam: General: Alert and oriented x3, no acute distress, pleasant and cooperative Lungs: Respirations even and unlabored, symmetrical chest expansion Eyes: PERRL Musculoskeletal: Flexion and extension of bilateral knees, legs somewhat guarded secondary to pain, [antalgic gait noted] Neurological: Speech clear, no gross sensory deficit Assessment:: Bilateral knee pain with degenerative osteoarthritis of both knees, restless leg syndrome Plan:: Patient has had significant improvement in her bilateral leg cramping/pain since our last visit. I will refill her ropinirole 0.25 mg daily. I will give her a 1 month supply of this medication. The patient will follow up in 1 month. Patient will return to clinic for 1 month follow-up and reevaluation of symptoms as well as medication refill. Patient has been instructed to contact the clinic with any concerns before the next appointment. Dr. Ferraro has reviewed this note and agrees with this plan of care. This note was dictated using voice recognition software and make contain errors or omissions. [facility] History I have reviewed the patient's past medical history: Yes Medical History: Reports:: Hyperlipidemia, Hypertension Denies:: Cancer, Diabetes Mellitus Type 1, Diabetes Mellitus Type 2, Internal Pacemaker, MRSA, Seizures *Have you ever received a pneumonia vaccine?: No *Have you received a flu vaccine this season?: No Other Medical History: Reports: Arthritis, Hypothyroidism, Thyroid Disease. Denies: Blood Transfusion Reaction Other Surgeries: Yes: Cholecystectomy, Hysterectomy-Total, Other (back, bladder tuck, eye sx). No: Pacemaker Amputation: No Fractures: No - *Social History Smoking Status: Never smoker Alcohol Intake: never Substance Use Type: denies use *Occupational Status:: other Housing: house Household Members: spouse *Travel in the last 8 weeks: None Family Hx:: No significant family history
== END ==
PROVIDERS: PCP Family Medicine; Visit Provider Nurse Practitioner Family
DX: M17.0 Bilateral primary osteoarthritis of knee (principal); G25.81 Restless legs syndrome
CPT/HCPCS: 99212; G0463

== ENCOUNTER → 2022-01-15 09:12 | Outpatient (POV) | payer BC, SELFPAY ==
[2022-01-15 09:29] VITALS: BP 167/79; PULSE 98; RESP 18; TEMP 36; O2SAT 98; BMI 69.7
--- NOTE | 2022-01-15 09:45 | EXP.PAIN.SOA ---
[facility] Pain Management SOAP Note Subjective:: Patient is a pleasant 66-year-old female who presents today for follow-up and medication refill. We are currently treating the patient for bilateral knee pain due to degenerative osteoarthritis and restless leg syndrome. Today the patient rates her pain a 3 out of 10 and states it is primarily in her legs and describes this as a cramping sensation that is worse at night. Patient states the ropinirole has significantly improved her symptoms and is requesting a refill at today's visit. She states she has been able to increase her activity and her sleep has been much better since starting this medication. Patient denies any side effects from this medication. Patient is not currently on any scheduled medications. Her Michael is [id number]. It is been reviewed and appropriate. Review of Systems: General: No recent weight changes, no fever, no sleep disturbances Respiratory: No cough, no shortness of air, no recurring pulmonary infections Cardiovascular/peripheral vascular: No chest pain, no palpitations, no edema, no shortness of breath Gastrointestinal: No new onset incontinence, normal bowel movements reported Genitourinary: No new onset incontinence Musculoskeletal: Bilateral leg pain Psychiatric: [Normal mood/affect] Neurological: [Denies weakness in extremities], [denies balance issues] Objective:: Physical Exam: General: Alert and oriented x3, no acute distress, pleasant and cooperative Lungs: Respirations even and unlabored, symmetrical chest expansion Eyes: PERRL Musculoskeletal: Flexion and extension of lumbar [spine] somewhat guarded secondary to pain, [antalgic gait noted] Neurological: Speech clear, no gross sensory deficit Assessment:: Degenerative osteoarthritis bilateral knees, restless leg syndrome Plan:: Patient continues to have significant improvement of her lower extremity pain symptoms following the addition of ropinirole 0.25 mg at night. I will send in a refill and provide a 3-month supply of this medication. Patient will return to clinic in 3 months for follow-up, reevaluation of symptoms and medication refill. Patient has been instructed to contact the clinic with any concerns before the next appointment. Dr. Ferraro has reviewed this note and agrees with this plan of care. This note was dictated using voice recognition software and make contain errors or omissions. [facility] Social History Smoking Status: Never smoker second hand exposure: No alcohol intake: never substance use type: denies use current occupational status: retired Travel in the last 8 weeks: None household members: spouse housing: house current occupation: [employer] current occupational exposures/hazards: No caffeine: Yes
== END | disposition home or self-care (01) ==
PROVIDERS: PCP Family Medicine; Visit Provider Nurse Practitioner Family
DX: M17.0 Bilateral primary osteoarthritis of knee (principal); G25.81 Restless legs syndrome; Z79.899 Other long term (current) drug therapy
CPT/HCPCS: 99212; G0463

== ENCOUNTER 2022-03-17 13:28 | Emergency (ER) | payer BC, SELFPAY ==
[2022-03-17 13:40] VITALS: BP 136/89; PULSE 104; RESP 19; TEMP 37.1; O2SAT 98; BMI 31.6
--- NOTE | 2022-03-17 13:56 | EXP.UTC ---
Discharge Plan Disposition Patient Disposition: Home, Self-Care Condition: Good Prescriptions Prescriptions: New azithromycin [Zithromax Z-Elliott] 250 mg tablet See Rx Instructions .ROUTE .COMPLEX 5 Days Qty: 6 0RF Rx Instructions: For 250 mg dose pack: take 500 mg today (day 1), then 250 mg for 4 days (days 2-5) benzonatate 100 mg capsule 100 mg PO TID PRN (Reason: cough) Qty: 30 0RF No Action levothyroxine 100 MCG tablet 100 mg PO DAILY losartan 50 MG tablet 50 mg PO DAILY cyclobenzaprine 10 MG tablet 10 mg PO TID PRN (Reason: cramps) Qty: 90 0RF tizanidine 4 MG tablet 4 mg PO TID diclofenac sodium 75 MG tablet,delayed release (DR/EC) 75 mg PO BID ropinirole 0.25 MG tablet 0.25 mg PO DAILY Qty: 30 0RF Referrals Follow up/Referrals: Lashaun Hines MD [Primary Care Provider] - See instructions Activity Restrictions/Add. Instructions Additional Instructions/Restrictions: *Monitor Temp, Over the counter Motrin or Tylenol as directed/as needed Tylenol every 4 hours and Motrin every 6 hours (as long as your family doctor has told you that you can take it) for fever or pain. and straight to ER if unable to lower temp less than 101.0 after medication given *Warm salt water gargles may help to soothe the throat *Throat Lozenges? *Warm fluids like tea with honey may help to soothe the throat? *Sleep elevated *Humidifier/Vaporizer Take your medication as prescribed Follow up IMMEDIATELY for new or worsening symptoms or no Noticeable improvement over the next 48-72 hours. 911 for difficulty breathing or swallowing Clinical Impressions Clinical Impression: URI (upper respiratory infection) Instructions Patient Instructions: Sinusitis, DI for Sinusitis, Cough Discharge ED Provider: Linsey Boyd [facility] [place] General Stated complaint: cough, congestion, body aches Mode of Arrival: Ambulatory Source of Information: Patient Limitations: No Limitations Time Seen by Provider: 03/17/22 13:56 Description of Symptoms (Recalled from Triage Doc. by RN): PATIENT C/O COUGH, CONGESTION, SORE THROAT AND BODY ACHES SINCE YESTERDAY HEENT Symptoms (Recalled from RN notes): Yes Resp Symptoms (Recalled from RN notes): Yes Skin Symptoms (Recalled from RN notes): No MS Symptoms (Recalled from RN notes): No Functional Status (Recalled from RN notes): WNL History of Present Illness Provider Complaint: Patient states that she has been feeling bad since yesterday States that she started with body aches, chills, cough States that she has been having sinus congestion and pressure for several days not sure if they are all related States that today she was feeling worse and aching all over so she came in to get it checked Related Data Home Medications Medication Instructions Recorded Confirmed levothyroxine 100 mcg tablet 100 mg PO DAILY hypothyroid 03/11/18 01/15/22 tizanidine 4 mg tablet 4 mg PO TID spasms 09/15/19 01/15/22 losartan 50 mg tablet 50 mg PO DAILY bp 04/10/20 01/15/22 diclofenac sodium 75 mg 75 mg PO BID Pain 10/24/21 01/15/22 tablet,delayed release Previous Rx's Medication Instructions Recorded cyclobenzaprine 10 mg tablet 10 mg PO TID PRN cramps #90 tabs 11/28/20 ropinirole 0.25 mg tablet 0.25 mg PO DAILY Restless leg #30 12/15/21 tabs azithromycin 250 mg tablet See Rx Instructions PO .COMPLEX 5 03/17/22 (Zithromax Z-Elliott) days #6 tabs benzonatate 100 mg capsule 100 mg PO TID PRN cough #30 caps 03/17/22 Allergies Allergy/AdvReac Type Severity Reaction Status Date / Time No Known Drug Allergies Allergy Unknown Verified 10/24/21 13:57 [NO KNOWN DRUG ALLERGIES] Worker's Comp Is this a Worker's Comp case?: No [facility] Medical History (Updated 03/17/22 @ 14:13 by Linsey Boyd APRN) Hyperlipidemia Hypertension Thyroid disease Surgical History (Updated 03/17/22 @ 13:55 by Suly Couch RN) History of back [place]
[2022-03-17 13:58] LABS: UTC Influenza A Antigen Negative (Negative); UTC Influenza B Antigen Negative (Negative)
[2022-03-17 14:15] VITALS: BP 136/89; PULSE 104; RESP 19; TEMP 37.1; O2SAT 98
== END 2022-03-17 14:19 | disposition home or self-care (01) ==
PROVIDERS: Emergency Provider Nurse Practitioner; PCP Family Medicine
DX: J06.9 Acute upper respiratory infection, unspecified (principal)
CPT/HCPCS: 87804; 99212; G0463

== ENCOUNTER → 2022-04-07 10:53 | Outpatient (POV) | payer BC, SELFPAY ==
[2022-04-07 11:37] VITALS: BP 177/84; PULSE 82; RESP 20; O2SAT 96; BMI 11.6
--- NOTE | 2022-04-07 12:09 | EXP.PAIN.SOA ---
[facility] Pain Management SOAP Note Subjective:: Patient is a pleasant 66-year-old female who presents today for follow-up and medication refill. We are currently treating the patient for bilateral knee pain due to degenerative osteoarthritis and restless leg syndrome. Today she rates her pain a 7 out of 10. Patient states she is experiencing significant pain in her low back along the right side that radiates down into her right hip and down to her knee. Patient denies any new trauma or injury. Patient describes this as a constant achy sensation that is worse with prolonged walking, standing, sitting. Patient states this has been going on for couple of months and has progressively worsened. Patient states this is affecting her ability to perform activities of daily living such as cooking and cleaning due to the pain. Patient is currently managed with ropinirole 0.25 mg daily. Patient denies any side effects from this medication. She states this medication provides significant improvement of her leg symptoms at night. She is requesting a refill at today's visit. Patient is not on any scheduled medications. Her Michael is [phone]. It has been reviewed and appropriate. Review of Systems: General: No recent weight changes, no fever, no sleep disturbances Respiratory: No cough, no shortness of air, no recurring pulmonary infections Cardiovascular/peripheral vascular: No chest pain, no palpitations, no edema, no shortness of breath Gastrointestinal: No new onset incontinence, normal bowel movements reported Genitourinary: No new onset incontinence Musculoskeletal: Low back pain, right leg pain, right hip pain Psychiatric: [Normal mood/affect] Neurological: [Denies weakness in extremities], [denies balance issues] Objective:: Physical Exam: General: Alert and oriented x3, no acute distress, pleasant and cooperative Lungs: Respirations even and unlabored, symmetrical chest expansion Eyes: PERRL Musculoskeletal: Flexion and extension of lumbar [spine] somewhat guarded secondary to pain, [antalgic gait noted]. Point tenderness along right SI and right greater trochanteric bursa and positive right Andreina's, Dawit's, Gaenslen's, compression and distraction exam Neurological: Speech clear, no gross sensory deficit Assessment:: Bilateral knee pain due to degenerative arthritis, restless leg syndrome, low back pain, sacroiliitis, greater trochanteric bursitis Plan:: Patient is experiencing significant pain in her low back that radiates down her right leg to her knee. Patient had limited range of motion of her lumbar spine along with extreme point tenderness along her right SI and right greater trochanteric bursa as well as positive right Andreina's, Dawit's, Gaenslen's, compression and distraction exam. I have discussed with the patient that she may benefit from a right SI and right bursa injection. Risk and benefits were discussed with the patient. She would like to proceed forward with this plan of care. I will refill the patient's ropinirole 0.25 mg at bedtime and provide a 1 month supply of this medication. I will also send in a prescription for tizanidine 4 mg at bedtime and provide a 1 month supply of this medication. We will schedule the patient for a right SI and right greater trochanteric bursa injection. Patient has been instructed to contact the clinic with any concerns before the next appointment. Dr. Ferraro has reviewed this note and agrees with this plan of care. This note was dictated using voice recognition software and make contain errors or omissions. [facility] Disclaimer: The information contained in this section may have been updated after the patient was seen, as this information can be updated by other users. Medical History (Updated 03/17/22 @ 14:13 by Linsey Boyd APRN) Hyperlipidemia Hypertension Thyroid disease Surgical History (Updated 03/17/22 @ 13:55 by Suly Couch RN) History of back surgery History of cholecyste
== END | disposition home or self-care (01) ==
PROVIDERS: PCP Family Medicine; Visit Provider Nurse Practitioner Family
DX: M17.0 Bilateral primary osteoarthritis of knee (principal); G25.81 Restless legs syndrome; M46.1 Sacroiliitis, not elsewhere classified; M70.60 Trochanteric bursitis, unspecified hip; M54.50 Low back pain, unspecified
CPT/HCPCS: 99212; G0463

== ENCOUNTER 2022-04-14 08:04 | Day surgery (SDC) | payer BC, SELFPAY ==
[2022-04-14 08:24] VITALS: BP 178/93; PULSE 80; RESP 18; TEMP 37; O2SAT 99; BMI 31.6
[2022-04-14 08:50] VITALS: BP 190/83; PULSE 79; RESP 18; O2SAT 96
--- NOTE | 2022-04-14 08:55 | P.PCN_ITS ---
Procedure Date: 04/14/22 Time: 09:00 Anesthesiologist:: Bobby Colorado CRNA Complications:: None Pre-procedure Diagnosis:: Right trochanteric bursitis. Right sacroiliitis Post-procedure Diagnosis:: Same. Indications for Procedure:: Very pleasant 66-year-old female who presents for right SI joint injection as well as right trochanteric bursa injection. Patient has had these in the past with significant improvement. Patient has extreme point tenderness over both areas. She rates her pain 7/10. Procedure Details:: Procedure: Right trochanteric bursa injection under fluoroscopy We then moved to the right trochanteric bursa.~ C-arm fluoroscopy was used to view the left greater trochanter.~ The skin and subcutaneous tissues overlying the right greater trochanter were anesthetized using lidocaine, 1.5% and a 25- gauge needle.~ After this, a 22-gauge spinal needle was inserted and advanced until it contacted the right greater trochanter.~ Dye was injected and good spread was seen throughout the right trochanteric bursa. After this, approximately 5 mL of bupivacaine, 0.25% and Depo-Medrol, 40 mg was incrementally injected into the right right trochanteric bursa.~ The patient tolerated the procedure well with no complications. Procedure: Right sacroliliac joint injection under fluoroscopy Informed consent was obtained and the risk and benefits of the procedure were explained to the patient.~ The patient was taken to the procedure room and noninvasive monitors were placed including noninvasive blood pressure cuff and pulse oximeter.~ The patient was placed prone on the procedure table.~ The~ right hip was cleansed using Betadine as a cleansing solution.~ C-arm fluorosocpy was used to view the right SI joint.~ The skin and subcutaneous tissues were anesthetized using Lidocaine 1.5% and a 25-gauge needle.~ After this, a 22-gauge spinal needle was inserted under fluoroscopic guidance into the inferior aspect of the right SI joint.~ Omnipaque dye was injected and a good spread was seen throughout the joint.~ After this, approximately 5 mL of bupivacaine 0.25% and Depo-Medrol 40 mg was incrementally injected into the sacroiliac joint.~ The patient tolerated the procedure well with no complications.~ The patient was observed in the Pain Clinic, then discharged home neurologically intact.~ Plan and Disposition:: Patient was discharged without incident
[2022-04-14 09:00] VITALS: BP 174/78; PULSE 77; RESP 20
== END 2022-04-14 09:00 | disposition home or self-care (01) ==
PROVIDERS: PCP Family Medicine; Visit Provider Nurse Anesthetist, Certified Registered
DX: M46.1 Sacroiliitis, not elsewhere classified (principal); M70.61 Trochanteric bursitis, right hip
CPT/HCPCS: 20610; 27096; 77002; G0260; J1040

== ENCOUNTER → 2022-04-29 08:43 | Outpatient (POV) | payer BC, SELFPAY ==
[2022-04-29 09:15] VITALS: BP 161/65; PULSE 69; RESP 18; O2SAT 97; BMI 31.6
--- NOTE | 2022-04-29 09:25 | A.OFFVIS_ITS ---
[facility] Pain Management SOAP Note Subjective:: Patient is a pleasant 66-year-old female who presents today for follow-up of right SI and right bursa injection on 04/14/2022. We are currently treating the patient for degenerative osteoarthritis of bilateral knees, restless leg syndrome, greater trochanteric bursitis, sacroiliitis, low back pain. Today the patient states that she has had 100% improvement following this injection and feels like it is still continuing to provide additional relief. Patient states she has been able to increase her activity and range of motion following this injection with decreased pain symptoms. Patient is currently managed with ropinirole 0.25 mg at bedtime and tizanidine 4 mg at bedtime. Patient denies any side effects from these medications. She states this medication does adequately manage her pain symptoms. Patient is not on any scheduled medications. Her Michael is [id number]. Its been reviewed and appropriate. Review of Systems: General: No recent weight changes, no fever, no sleep disturbances Respiratory: No cough, no shortness of air, no recurring pulmonary infections Cardiovascular/peripheral vascular: No chest pain, no palpitations, no edema, no shortness of breath Gastrointestinal: No new onset incontinence, normal bowel movements reported Genitourinary: No new onset incontinence Musculoskeletal: Low back pain Psychiatric: [Normal mood/affect] Neurological: [Denies weakness in extremities], [denies balance issues] Objective:: Physical Exam: General: Alert and oriented x3, no acute distress, pleasant and cooperative Lungs: Respirations even and unlabored, symmetrical chest expansion Eyes: PERRL Musculoskeletal: Flexion and extension of lumbar [spine] somewhat guarded secondary to pain, [antalgic gait noted] Neurological: Speech clear, no gross sensory deficit Assessment:: Degenerative osteoarthritis of bilateral knees, restless leg syndrome, greater trochanteric bursitis, sacroiliitis, low back pain Plan:: Patient has had significant improvement following her last SI and bursa injection and does not require any additional injective therapy. I will refill the patient's ropinirole 0.25 mg at bedtime and tizanidine 4 mg at bedtime and provide a 3-month supply of these medications. Patient will return to clinic in 1 month for reevaluation of symptoms and follow-up. Patient has been instructed to contact the clinic with any concerns before the next appointment. Dr. Ferraro has reviewed this note and agrees with this plan of care. This note was dictated using voice recognition software and make contain errors or omissions. [facility] Disclaimer: The information contained in this section may have been updated after the patient was seen, as this information can be updated by other users. 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
== END | disposition home or self-care (01) ==
PROVIDERS: PCP Family Medicine; Visit Provider Nurse Practitioner Family
DX: M17.0 Bilateral primary osteoarthritis of knee (principal); M70.60 Trochanteric bursitis, unspecified hip; G25.81 Restless legs syndrome; M46.1 Sacroiliitis, not elsewhere classified; M54.50 Low back pain, unspecified
CPT/HCPCS: 99212; G0463

== ENCOUNTER → 2022-07-08 15:02 | Outpatient (POV) | payer BC, SELFPAY ==
[2022-07-08 15:59] VITALS: BP 161/80; PULSE 80; RESP 18; O2SAT 97; BMI 31.6
--- NOTE | 2022-07-08 16:06 | EXP.PAIN.SOA ---
[facility] Pain Management SOAP Note Subjective:: Patient is a pleasant 66-year-old female who presents today for medication refill and follow-up. We are currently treating the patient for degenerative osteoarthritis of bilateral knees, restless leg syndrome, greater trochanteric bursitis, sacroiliitis and low back pain. Today she rates her pain a 5 out of 10. Patient states she has not had any recent injury or trauma. Patient denies any change location or type of pain she experiences. Patient states that she does continue to have significant pain throughout her low back, hips and knees. Patient is currently managed with ropinirole 0.25 mg at bedtime and diclofenac 75 mg twice daily. She was previously prescribed tizanidine 4 mg at bedtime however she states that this continue to give significant dry mouth and she is discontinued this medication. Patient is not on any scheduled medications. She is requesting additional pain medication at today's visit. Her Michael is [id number]. Its been reviewed and appropriate. Review of Systems: General: No recent weight changes, no fever, no sleep disturbances Respiratory: No cough, no shortness of air, no recurring pulmonary infections Cardiovascular/peripheral vascular: No chest pain, no palpitations, no edema, no shortness of breath Gastrointestinal: No new onset incontinence, normal bowel movements reported Genitourinary: No new onset incontinence Musculoskeletal: Low back pain, hip pain, knee pain Psychiatric: [Normal mood/affect] Neurological: [Denies weakness in extremities], [denies balance issues] Objective:: Physical Exam: General: Alert and oriented x3, no acute distress, pleasant and cooperative Lungs: Respirations even and unlabored, symmetrical chest expansion Eyes: PERRL Musculoskeletal: Flexion and extension of lumbar [spine] somewhat guarded secondary to pain, [antalgic gait noted] Neurological: Speech clear, no gross sensory deficit Assessment:: Degenerative osteoarthritis bilateral knees, restless leg syndrome, greater trochanteric bursitis, sacroiliitis, low back pain Plan:: Patient continues to experience significant pain throughout multiple joints. I will refill her ropinirole 0.25 mg at bedtime and diclofenac 75 mg twice daily and provide a 1 month supply of this medication. I will also order the patient tramadol 50 mg daily and provide a 1 month supply of this. Patient will return to clinic in 1 month for reevaluation of symptoms, medication refill and follow-up. Patient has been instructed to contact the clinic with any concerns before the next appointment. Dr. Ferraro has reviewed this note and agrees with this plan of care. This note was dictated using voice recognition software and make contain errors or omissions. [facility] Disclaimer: The information contained in this section may have been updated after the patient was seen, as this information can be updated by other users. 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
== END | disposition home or self-care (01) ==
PROVIDERS: PCP Family Medicine; Visit Provider Nurse Practitioner Family
DX: M17.0 Bilateral primary osteoarthritis of knee (principal); M46.1 Sacroiliitis, not elsewhere classified; M70.60 Trochanteric bursitis, unspecified hip; M54.50 Low back pain, unspecified; G25.81 Restless legs syndrome
CPT/HCPCS: 99212; G0463

== ENCOUNTER → 2022-08-10 14:17 | Outpatient (POV) | payer BC, SELFPAY ==
[2022-08-10 14:57] VITALS: BP 150/84; PULSE 77; RESP 20; BMI 31.6
--- NOTE | 2022-08-10 15:00 | EXP.PAIN.SOA ---
[facility] Pain Management SOAP Note Subjective:: Patient is a pleasant 66-year-old female who presents today for 1 month follow-up and medication refill. We are currently treating the patient for osteoarthritis bilateral knees, restless leg syndrome, greater trochanteric bursitis, sacroiliitis, low back pain. Today she rates her pain a 6 out of 10. Patient denies any new trauma or injury. Patient denies any change location or type of pain she experiences. She states she has been up from work and is having worsening pain at the moment. She is currently managed with tramadol 50 mg daily, diclofenac 75 mg twice a day and ropinirole 0.25 mg at bedtime. Patient denies any side effects from these medications. She is requesting refills. Her Michael is [id number]. Its been reviewed and appropriate. Review of Systems: General: No recent weight changes, no fever, no sleep disturbances Respiratory: No cough, no shortness of air, no recurring pulmonary infections Cardiovascular/peripheral vascular: No chest pain, no palpitations, no edema, no shortness of breath Gastrointestinal: No new onset incontinence, normal bowel movements reported Genitourinary: No new onset incontinence Musculoskeletal: Low back pain, knee pain Psychiatric: [Normal mood/affect] Neurological: [Denies weakness in extremities], [denies balance issues] Objective:: Physical Exam: General: Alert and oriented x3, no acute distress, pleasant and cooperative Lungs: Respirations even and unlabored, symmetrical chest expansion Eyes: PERRL Musculoskeletal: Flexion and extension of lumbar [spine] somewhat guarded secondary to pain, [antalgic gait noted] Neurological: Speech clear, no gross sensory deficit Assessment:: Osteoarthritis bilateral knees, restless leg syndrome, greater trochanteric bursitis, sacroiliitis, low back pain Plan:: Patient is doing well with her current medication regimen. I will refill her diclofenac 75 mg twice daily, ropinirole 0.25 mg at bedtime and tramadol 50 mg daily and provide a 1 month supply of this medication. Patient will return to clinic in 1 month for reevaluation of symptoms, medication refill and follow-up. Patient has been instructed to contact the clinic with any concerns before the next appointment. Dr. Ferraro has reviewed this note and agrees with this plan of care. This note was dictated using voice recognition software and make contain errors or omissions. [facility] Disclaimer: The information contained in this section may have been updated after the patient was seen, as this information can be updated by other users. 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
== END | disposition home or self-care (01) ==
PROVIDERS: PCP Family Medicine; Visit Provider Nurse Practitioner Family
DX: M17.0 Bilateral primary osteoarthritis of knee (principal); M46.1 Sacroiliitis, not elsewhere classified; M70.60 Trochanteric bursitis, unspecified hip; M54.50 Low back pain, unspecified; G25.81 Restless legs syndrome
CPT/HCPCS: 99212; G0463

== ENCOUNTER → 2022-09-16 14:01 | Outpatient (POV) | payer BC, SELFPAY ==
--- NOTE | 2022-09-16 14:24 | EXP.PAIN.SOA ---
[facility] Pain Management SOAP Note Subjective:: Patient is a pleasant 66-year-old female who presents today for medication refill and follow-up. We are currently treating the patient for osteoarthritis bilateral knees, restless leg syndrome, greater trochanteric bursitis, sacroiliitis, degenerative disc disease of lumbar spine with lumbar radiculopathy symptoms. Today she rates her pain a 4 out of 10. Patient states her pain is all around her low back with radiating symptoms into her left hip and left leg. Patient does states she has increased numbness down this extremity that is worse with increased activity. Patient does state it interferes with her ability to perform activities of daily living such as cooking and cleaning. Patient states this has been going on for some time and progressively worsened. She is currently managed with tramadol 50 mg daily, diclofenac 75 mg twice a day and ropinirole 0.25 mg at bedtime. Patient denies any side effects from these medications. She states these medications do help manage some of her pain symptoms. Her Michael is [id number]. Its been reviewed and appropriate. Review of Systems: General: No recent weight changes, no fever, no sleep disturbances Respiratory: No cough, no shortness of air, no recurring pulmonary infections Cardiovascular/peripheral vascular: No chest pain, no palpitations, no edema, no shortness of breath Gastrointestinal: No new onset incontinence, normal bowel movements reported Genitourinary: No new onset incontinence Musculoskeletal: Low back pain, left hip pain, left leg pain Psychiatric: [Normal mood/affect] Neurological: [Denies weakness in extremities], [denies balance issues] Objective:: Physical Exam: General: Alert and oriented x3, no acute distress, pleasant and cooperative Lungs: Respirations even and unlabored, symmetrical chest expansion Eyes: PERRL Musculoskeletal: Flexion and extension of lumbar [spine] somewhat guarded secondary to pain, [antalgic gait noted] Neurological: Speech clear, no gross sensory deficit PROCEDURE:? MR LUMBAR SPINE WO CON CLINICAL INDICATION:? BACK PAIN Prior back surgery.? Low back pain with numbness in the left leg COMPARISON:? [facility] [place]-L-SPINE W/WO from 02/04/2015 TECHNIQUE:? Standard multiplanar multiecho sequences are performed without contrast. 3-D MIP and myelographic images are also rendered and reviewed FINDINGS: There is normal alignment.? The spinal cord ends at the L1-L2 level. T11-T12: Mild degenerative disc disease. T12-L1: Mild degenerative disc disease with minimal bulging disc and a small broad-based central right paracentral disc protrusion without impingement.? Not significantly changed L1-L2: Unremarkable. L2-L3: Mild facet and ligamentum hypertrophy L3-L4: Degenerative disc disease with minimal bulging disc with facet and ligamentum hypertrophy with bilateral lateral recess and foraminal narrowing.? The facet and ligamentum hypertrophy has slightly progressed compared to the previous exam. L4-5: Degenerative disc disease.? There is a small central disc osteophyte complex and a small left paracentral disc osteophyte complex similar to the previous exam.? There is moderate facet hypertrophic change which is greater on the right compared to the left but not significantly changed.? Postsurgical changes are present on the left at this level the with a small laminotomy defect on the left.? There is moderate to severe right foraminal narrowing and severe left foraminal narrowing not significantly changed. L5-S1: Degenerative disc disease with bulging disc.? There is a heterogeneous area of signal intensity in the left paracentral and foraminal region.? This area previously demonstrated contrast enhancement and was felt to be due to epidural fibrosis.? Cannot adequately evaluate for epidural fibrosis on today's exam without gadolinium enhancement.? This region appears slightly more prominent compared to the previous study with impinge
[2022-09-16 15:03] VITALS: BP 161/71; PULSE 67; RESP 18; O2SAT 97; BMI 31.6
== END | disposition home or self-care (01) ==
PROVIDERS: PCP Family Medicine; Visit Provider Nurse Practitioner Family
DX: M51.16 Intervertebral disc disorders with radiculopathy, lumbar region (principal); M47.26 Other spondylosis with radiculopathy, lumbar region; M46.1 Sacroiliitis, not elsewhere classified; M70.60 Trochanteric bursitis, unspecified hip; G25.81 Restless legs syndrome; M17.0 Bilateral primary osteoarthritis of knee
CPT/HCPCS: 99212; G0463

== ENCOUNTER 2022-10-06 09:08 | Day surgery (SDC) | payer BC, SELFPAY ==
[2022-10-06 09:26] VITALS: BP 171/80; PULSE 72; RESP 18; TEMP 36.8; O2SAT 99; BMI 32.4
[2022-10-06 09:47] VITALS: BP 201/73; PULSE 79; RESP 18; O2SAT 97
[2022-10-06 09:50] VITALS: BP 188/63; PULSE 66; RESP 18; O2SAT 99
--- NOTE | 2022-10-06 09:50 | EXP.PAIN.PRO ---
Procedure Date: 10/06/22 Time: 09:40 Anesthesiologist:: Bobby Colorado CRNA Complications:: None Pre-procedure Diagnosis:: Degenerative disc lumbar spine multilevels. Lumbar radiculopathy. Lumbar spinal stenosis. Post-procedure Diagnosis:: Same. Indications for Procedure:: Patient is a very pleasant 66-year-old female comes our clinic today for left L4-5 and L5-S1 transforaminal epidural steroid injection. Patient has disc bulge multilevel lumbar spine. Degenerative disc lumbar spine. She complains of left hip and leg radicular symptoms to the foot. She describes the radicular symptoms as pain, cramping, tingling, numbness. Procedure Details:: Details of the procedure were explained to the patient. The patient was taken the procedure room placed in the prone position. The area of the lumbar spine was cleansed using chlorhexidine as a cleansing solution. At this time using fluoroscopy guidance markers were placed on the left lateral border of the L4 and L5 vertebral body. The skin and subcutaneous tissue was anesthetized using 1% lidocaine and 25-gauge needle. At this time using a 22-gauge 3-1/2 inch spinal needle the left upper one third of the L4-5 foramen was accessed. The same was done at the left L5-S1 foramen. Needle positions were confirmed and a lateral view using fluoroscopy and contrast dye. At this time 1 cc of 1% lidocaine +20 mg of Depo-Medrol was injected at each level after negative aspiration. Chassell were removed. Band-Aid applied. Patient tolerated the procedure without difficulty. There are no complications. Plan and Disposition:: Patient was discharged without incident.
== END 2022-10-06 09:50 | disposition home or self-care (01) ==
PROVIDERS: PCP Family Medicine; Visit Provider Nurse Anesthetist, Certified Registered
DX: M51.16 Intervertebral disc disorders with radiculopathy, lumbar region (principal); M48.061 Spinal stenosis, lumbar region without neurogenic claudication
CPT/HCPCS: 64483; 64484; J1030; Q9966

== ENCOUNTER → 2022-11-19 13:59 | Outpatient (POV) | payer BC, SELFPAY ==
[2022-11-19 14:02] VITALS: BP 177/76; PULSE 70; RESP 20; BMI 31.6
--- NOTE | 2022-11-19 14:10 | EXP.PAIN.SOA ---
[facility] Pain Management SOAP Note Subjective:: Patient is a pleasant 67-year-old female who presents today for follow-up of left transforaminal epidural steroid injection L4-L5 and L5-S1 on 10/06/2022. . We are currently treating the patient for degenerative disc disease of lumbar spine with lumbar radiculopathy symptoms, osteoarthritis bilateral knees, restless leg syndrome, greater trochanteric bursitis, sacroiliitis. Today she rates her pain a 6 out of 10. Patient denies any new trauma or injury. She denies any change location or type of pain she experiences. Patient states that she has had at least 80% improvement of her left leg symptoms following this injection and feels like it is still continuing to provide relief. Today she does state that she has more pain in her right leg nail as well as her hips and new pain in her neck with numbness and tingling in her bilateral hands. Patient denies any previous cervical imaging. She is currently managed with tramadol 50 mg daily, diclofenac 75 mg twice a day and ropinirole 0.25 mg at bedtime. Patient denies any side effects from this medication. Her Michael is [phone]. Its been reviewed and appropriate. Review of Systems: General: No recent weight changes, no fever, no sleep disturbances Respiratory: No cough, no shortness of air, no recurring pulmonary infections Cardiovascular/peripheral vascular: No chest pain, no palpitations, no edema, no shortness of breath Gastrointestinal: No new onset incontinence, normal bowel movements reported Genitourinary: No new onset incontinence Musculoskeletal: Neck pain, bilateral hip pain, arm pain Psychiatric: [Normal mood/affect] Neurological: [Denies weakness in extremities], [denies balance issues] Objective:: Physical Exam: General: Alert and oriented x3, no acute distress, pleasant and cooperative Lungs: Respirations even and unlabored, symmetrical chest expansion Eyes: PERRL Musculoskeletal: Flexion and extension of cervical, lumbar [spine] somewhat guarded secondary to pain Neurological: Speech clear, no gross sensory deficit Assessment:: Degenerative disc disease of lumbar spine with lumbar radiculopathy symptoms, osteoarthritis bilateral knees, restless leg syndrome, greater trochanteric bursitis, sacroiliitis, neck pain with cervical radiculopathy symptoms Plan:: Patient is experiencing new pain in her neck with radiating numbness and tingling into her upper extremities. I will order x-ray imaging of her cervical spine as well as proceed forward her with ordering a CT without contrast. Patient does have a spinal cord stimulator in place and is unable to have a MRI due to the device and prolonged positioning. I will refill the patient's tramadol 50 mg daily, diclofenac 75 mg twice daily and ropinirole 0.25 mg at bedtime and provide a 1 month supply of this medication. Patient will return to clinic in 1 month following imaging for reevaluation of symptoms, medication refill and follow-up. Patient has been instructed to contact the clinic with any concerns before the next appointment. Dr. Ferraro has reviewed this note and agrees with this plan of care. This note was dictated using voice recognition software and make contain errors or omissions. [facility] Disclaimer: The information contained in this section may have been updated after the patient was seen, as this information can be updated by other users. Medical History Hyperlipidemia Hypertension Thyroid disease Surgical History History of back surgery History of cholecystectomy History of hysterectomy Family History Other No significant family history Social History Smoking Status: Never smoker second hand exposure: No alcohol intake: never substance use
== END | disposition home or self-care (01) ==
PROVIDERS: PCP Family Medicine; Visit Provider Nurse Practitioner Family
DX: M51.16 Intervertebral disc disorders with radiculopathy, lumbar region (principal); M17.0 Bilateral primary osteoarthritis of knee; G25.81 Restless legs syndrome; M70.60 Trochanteric bursitis, unspecified hip; M46.1 Sacroiliitis, not elsewhere classified; M54.12 Radiculopathy, cervical region
CPT/HCPCS: 99212; G0463

== ENCOUNTER → 2022-11-19 14:14 | Outpatient (CLI) | payer MEDICARE, SELFPAY ==
--- NOTE | 2022-11-19 14:28 | XR_ITS ---
FINAL REPORT CLINICAL HISTORY: Pain in cervical region x 3 mos, NKT. Pain radiates w numbness/tingling down bilat arms, Lt arm worse. Pt states pain worsened when ambulatory and at night. FINDINGS: CERVICAL SPINE Five views demonstrate no acute fracture. There is moderate diffuse degenerative disc disease. There is multilevel bony neural foraminal narrowing. There is no malalignment. IMPRESSION: Moderate degenerative change. Reviewed, Interpreted and Dictated by Irma Waddell MD Transcribed by Vianey Key Authenticated and [facility]
== END ==
PROVIDERS: PCP Family Medicine; Visit Provider Nurse Practitioner Family
DX: M54.2 Cervicalgia (principal)
CPT/HCPCS: 72050

== ENCOUNTER 2022-12-01 14:26 | Emergency (ER) | payer MEDICARE, SELFPAY ==
[2022-12-01] VITALS (9 sets, daily range): BP systolic 147–198; BP diastolic 69–102; PULSE 66–83; RESP 18–26; TEMP 36.8–36.9; O2SAT 97–100; BMI 31.6; BMI 32.4
--- NOTE | 2022-12-01 14:37 | EXP.UTC ---
Discharge Plan Disposition Patient Disposition: Home, Self-Care Condition: Good Prescriptions Prescriptions: New benzonatate 100 mg capsule 100 mg PO TID PRN (Reason: cough) Qty: 30 0RF No Action levothyroxine 100 MCG tablet 100 mg PO DAILY losartan 50 MG tablet 50 mg PO DAILY cyclobenzaprine 10 MG tablet 10 mg PO TID PRN (Reason: cramps) Qty: 90 0RF tizanidine 4 MG tablet 4 mg PO HS Qty: 30 2RF ropinirole 0.25 MG tablet 0.25 mg PO DAILY Qty: 30 1RF diclofenac sodium 75 MG tablet,delayed release (DR/EC) 75 mg PO BID Qty: 60 0RF tramadol 50 mg tablet 50 mg PO DAILY Qty: 30 0RF Referrals Follow up/Referrals: Lashaun Hines MD [Primary Care Provider] - See instructions Activity Restrictions/Add. Instructions Additional Instructions/Restrictions: Your CT imaging and blood work showed no significant abnormalities. Please follow-up with your primary care provider. Please return to the emergency department if you develop any new or worsening symptoms or become concerned for your health. Clinical Impressions Clinical Impression: Cough Instructions Patient Instructions: Cough Discharge ED Provider: Juan M Shipley [facility] General Chief complaint: Shortness of Breath/Dyspnea Stated complaint: SOA, cough Time Seen by Provider: 12/01/22 14:37 History of Present Illness Provider Complaint: She states that for the past approx 1 week she has had shortness of breath. She denies any congestion or cough. She has had periods of left arm pain also. Related Data Home Medications Medication Instructions Recorded Confirmed levothyroxine 100 mcg tablet 100 mg PO DAILY hypothyroid 03/11/18 10/06/22 losartan 50 mg tablet 50 mg PO DAILY bp 04/10/20 10/06/22 Previous Rx's Medication Instructions Recorded cyclobenzaprine 10 mg tablet 10 mg PO TID PRN cramps #90 tabs 11/28/20 tizanidine 4 mg tablet 4 mg PO HS spasms #30 tabs 04/29/22 diclofenac sodium 75 mg 75 mg PO BID Pain #60 tabs 11/19/22 tablet,delayed release ropinirole 0.25 mg tablet 0.25 mg PO DAILY Restless leg #30 11/19/22 tabs tramadol 50 mg tablet 50 mg PO DAILY . #30 tabs 11/19/22 benzonatate 100 mg capsule 100 mg PO TID PRN cough #30 caps 12/01/22 Allergies Allergy/AdvReac Type Severity Reaction Status Date / Time No Known Drug Allergies Allergy Unknown Verified 10/06/22 09:27 [NO KNOWN DRUG ALLERGIES] [facility] Disclaimer: The information contained in this section may have been updated after the patient was seen, as this information can be updated by other users. 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 current occupational exposures/hazards: No caffeine: Yes ROS Obtained: Yes All systems reviewed & no additional complaints except as documented Constitutional Constitutional: Denies chills and Denies fever(s) Eyes Eyes: Denies eye discharge ENT Ears, Nose, Mouth, and Throat: Denies dizziness, Denies otalgia and Denies sore throat Cardiovascular Cardiovascular: Denies chest pain Respiratory Respiratory: Denies shortness of breath, Denies chest congestion, Denies cough, Denies stridor and Denies wheezing Gastrointestinal Gastrointestingal: Denies nausea or vomiting Musculoskeletal Musculoskeletal: Reports system reviewed an
--- NOTE | 2022-12-01 14:58 | PC.NURSE ---
pt arrived to room from [facility]
--- NOTE | 2022-12-01 15:05 | ECG_ITS ---
APPROVED REPORT Exam: Resting ECG HR:80 bpm ECG Measurements Heart Rate 80 AXES PA 364 P 222 QRSd 85 QRS -4 QT 363 T 56 QTc 399 Conclusion ELECTRONIC ATRIAL PACEMAKER LOW QRS VOLTAGE IN PRECORDIAL LEADS [QRS DEFLECTION < 1.0 mV IN CHEST LEADS] SEPTAL MYOCARDIAL INFARCTION , OF INDETERMINATE AGE [40+ ms Q WAVE IN V1/V2] ABNORMAL ECG UNCONFIRMED REPORT Electronically signed by : Jass Best MD 12/01/2022 20:45:46
--- NOTE | 2022-12-01 15:10 | XR_ITS ---
FINAL REPORT CLINICAL HISTORY: soa FINDINGS: SINGLE-VIEW CHEST The heart size is normal. The mediastinum is normal. There is mild right base atelectasis. The left lung is clear. There is no pneumothorax. IMPRESSION: Mild right base atelectasis. Reviewed, Interpreted and Dictated by Diego Alfredo III, MD Transcribed by Juliana Oviedo Authenticated and [facility]
[2022-12-01 15:18] LABS: Basophils # 0.1 K/mm3 (0-0.2); Basophils % 1.5 % (0.1-2.0); Eosinophils # 0.4 K/mm3 (0.0-0.4); Eosinophils % 4.8 % (0.1-12.0); Hematocrit 41.6 % (37.0-47.0); Hemoglobin 13.5 g/dL (12.2-16.2); Lymphocytes # 2.6 K/mm3 (0.7-4.5); Lymphocytes % 32.5 % (10-50); Mean Corpuscular HGB Conc 32.4 g/dL (31.8-35.4); Mean Corpuscular Hemoglobin 29.2 pg (27.0-31.2); Mean Platelet Volume 8.3 fl (7.4-10.4); Monocytes # 0.4 K/mm3 (0.1-1.0); Monocytes % 5.2 % (1.7-9.3); Neutrophils # 4.5 K/mm3 (1.8-7.8); Neutrophils % 56.1 % (37.0-80.0); Platelet Count 289 K/mm3 (142-424); Red Blood Count 4.62 M/mm3 (4.20-5.40); Red Cell Distribution Width 13.1 % (11.5-17.5); White Blood Count 7.9 K/mm3 (4.8-10.8)
--- NOTE | 2022-12-01 15:18 | HMH.EDGENADL ---
Discharge Plan Disposition Patient Disposition: Home, Self-Care Condition: Good Prescriptions Prescriptions: New benzonatate 100 mg capsule 100 mg PO TID PRN (Reason: cough) Qty: 30 0RF No Action levothyroxine 100 MCG tablet 100 mg PO DAILY losartan 50 MG tablet 50 mg PO DAILY cyclobenzaprine 10 MG tablet 10 mg PO TID PRN (Reason: cramps) Qty: 90 0RF tizanidine 4 MG tablet 4 mg PO HS Qty: 30 2RF ropinirole 0.25 MG tablet 0.25 mg PO DAILY Qty: 30 1RF diclofenac sodium 75 MG tablet,delayed release (DR/EC) 75 mg PO BID Qty: 60 0RF tramadol 50 mg tablet 50 mg PO DAILY Qty: 30 0RF Referrals Follow up/Referrals: Lashaun Hines MD [Primary Care Provider] - See instructions Activity Restrictions/Add. Instructions Additional Instructions/Restrictions: Your CT imaging and blood work showed no significant abnormalities. Please follow-up with your primary care provider. Please return to the emergency department if you develop any new or worsening symptoms or become concerned for your health. Clinical Impressions Clinical Impression: Cough Instructions Patient Instructions: Cough Discharge ED Provider: Juan M Shipley General Adult HPI General Chief complaint: Shortness of Breath/Dyspnea Stated complaint: SOA, cough Time Seen by Provider: 12/01/22 14:37 Mode of Arrival: Ambulatory Source of Information: Patient Limitations: No Limitations Description of Symptoms (Recalled from ER Triage Doc. by RN): Patient reports shortness of breath, cough, shaking and weakness for 2 weeks. History of Present Illness HPI narrative: 67-year-old female, history of hypertension, hypercholesterolemia, hypothyroidism presents with primarily chest tightness/shortness of breath. She reports that she has had the symptoms for the last couple of weeks but has been worse over the last couple of days. She feels generally shaky, mildly weak. She reports normal p.o. intake, normal bowel bladder function. She reports no recent changes in medication besides the addition of a statin for cholesterol. Reports mild dry cough and difficulty with deep inhalation, reports no significant chest pain. Reports mild nausea earlier but improved after p.o. intake. She is on losartan for blood pressure, last took it this morning. Related Data Home Medications Medication Instructions Recorded Confirmed levothyroxine 100 mcg tablet 100 mg PO DAILY hypothyroid 03/11/18 10/06/22 losartan 50 mg tablet 50 mg PO DAILY bp 04/10/20 10/06/22 Previous Rx's Medication Instructions Recorded cyclobenzaprine 10 mg tablet 10 mg PO TID PRN cramps #90 tabs 11/28/20 tizanidine 4 mg tablet 4 mg PO HS spasms #30 tabs 04/29/22 diclofenac sodium 75 mg 75 mg PO BID Pain #60 tabs 11/19/22 tablet,delayed release ropinirole 0.25 mg tablet 0.25 mg PO DAILY Restless leg #30 11/19/22 tabs tramadol 50 mg tablet 50 mg PO DAILY . #30 tabs 11/19/22 benzonatate 100 mg capsule 100 mg PO TID PRN cough #30 caps 12/01/22 Allergies Allergy/AdvReac Type Severity Reaction Status Date / Time No Known Drug Allergies Allergy Unknown Verified 10/06/22 09:27 [NO KNOWN DRUG ALLERGIES] [facility] Disclaimer: The information contained in this section may have been updated after the patient was seen, as this information can be updated by other users. Medical History (Updated 12/01/22 @ 17:58 by Juan M Shipley MD) Hyperlipidemia Hypertension Thyroid disease Surgical History History of back surgery History of cholecystectomy History of hysterectomy Family History Other No significant family history Social History Smoking Status: Never smoker second hand exposure: No alcohol intake: never substance use type: denies use current occupational
[2022-12-01 15:36] LABS: Alanine Aminotransferase 31 U/L (12-78); Albumin Level 4.9 g/dl (3.5-5.0); Albumin/Globulin Ratio 1.5 (1.1-1.8); Alkaline Phosphatase 105 U/L (38-126); Anion Gap 15.7 mEq/L (5-15); Aspartate Amino Transferase 37 U/L (14-36); Bilirubin,Total 0.6 mg/dl (0.2-1.3); Blood Urea Nitrogen 14 mg/dl (7-17); Calcium 9.9 mg/dl (8.4-10.2); Carbon Dioxide 25 mmol/L (22.0-30.0); Chloride 105 mmol/L (98-107); Creatinine Clearance Estimated 78 mL/min (50-200); Estimated Glomerular Filt Rate 72 ml/min (>60); GFR (African American) 87 ML/MIN (>60); Globulin 3.3 g/dL (1.3-3.2); Glucose 108 mg/dl (74-100); Potassium 3.7 mmoL/L (3.5-5.1); Sodium 142 mmol/L (136-145); Total Protein,Serum 8.2 g/dl (6.3-8.2)
[2022-12-01 15:51] LABS: NT Pro Brain Natriuretic Pep. 198 pg/mL (0-125)
[2022-12-01 15:52] LABS: Troponin I < 0.01 ng/ml (0.00-0.034)
[2022-12-01 16:09] LABS: Thyroid Stimulating Hormone 1.99 uIU/mL (0.465-4.68)
--- NOTE | 2022-12-01 16:22 | CT_ITS ---
PROCEDURE INFORMATION: Exam: CTA Chest With Contrast Exam date and time: 12/01/2022 4:41 PM Age: 67 years old Clinical indication: Abnormal findings; Abnormal diagnostic tests; Elevated d-dimer; Shortness of breath; Additional info: SOA, elevated dimer TECHNIQUE: Imaging protocol: Computed tomographic angiography of the chest with contrast. Exam focused on the arteries. 3D rendering (Not supervised by radiologist): MIP and/or 3D reconstructed images were created by the technologist. Radiation optimization: All CT scans at this facility use at least one of these dose optimization techniques: automated exposure control; mA and/or kV adjustment per patient size (includes targeted exams where dose is matched to clinical indication); or iterative reconstruction. Contrast material: ISOVUE 370; Contrast volume: 70 ml; Contrast route: INTRAVENOUS (IV); REPORTING DATA: Count of CT and Cardiac NM exams in prior 12 months: This patient has received 0 known CTs and 0 known cardiac nuclear medicine studies in the 12 months prior to the current study. COMPARISON: CR XR CHEST PORTABLE 12/01/2022 3:17 PM FINDINGS: Tubes, catheters and devices: Spinal stimulator catheter terminates in the mid thoracic spine. Pulmonary arteries: Normal. No pulmonary emboli. Aorta: Unremarkable. No aortic aneurysm. No aortic dissection. Lungs: Subsegmental atelectasis at the right lung base. No airspace consolidation. Pleural spaces: Unremarkable. No pneumothorax. No pleural effusion. Heart: Unremarkable. No cardiomegaly. No pericardial effusion. Lymph nodes: Unremarkable. No enlarged lymph nodes. Gallbladder and bile ducts: Cholecystectomy. Bones/joints: Unremarkable. No acute fracture. Soft tissues: Unremarkable. IMPRESSION: 1. No PE. 2. Minor right lung base atelectasis.
[2022-12-01 19:25] LABS: Troponin I < 0.01 ng/ml (0.00-0.034)
== END 2022-12-01 19:48 | disposition home or self-care (01) ==
LOC: UTC 14:29 → ER 14:58
PROVIDERS: Emergency Provider Emergency Medicine; PCP Family Medicine
DX: R07.89 Other chest pain (principal); R06.02 Shortness of breath; R05.9 Cough, unspecified; I10 Essential (primary) hypertension; E03.9 Hypothyroidism, unspecified; E78.5 Hyperlipidemia, unspecified
CPT/HCPCS: 71045; 71275; 80053; 83880; 84443; 84484; 85025; 85378; 93005; 99285; Q9967

== ENCOUNTER → 2022-12-14 14:32 | Outpatient (CLI) | payer MEDICARE, SELFPAY ==
--- NOTE | 2022-12-14 14:38 | CT_ITS ---
FINAL REPORT TECHNIQUE: Axial images were obtained from skull base to the thoracic inlet by computed tomography. Coronal and sagittal reconstruction process performed. This study was performed with techniques to keep radiation doses as low as reasonably achievable (ALARA). Individualized dose reduction techniques using automated exposure control or adjustment of mA and/or kV according to the patient''s size were employed. CLINICAL HISTORY: NECK PAIN FINDINGS: There is no acute fracture or subluxation. There are mild anterior osteophytes at C5-6. Anterior and posterior osteophytes are seen at C6-7 with mild to moderate bilateral neuroforaminal narrowing. The disc spaces are preserved. The facets are normally aligned. The soft tissues are unremarkable. Limited images of the lung apices are unremarkable. IMPRESSION: Mild to moderate bilateral neuroforaminal narrowing at C6-7. No acute bony abnormality. Reviewed, Interpreted and Dictated by Lencho Whittaker MD Transcribed by Yvonne Raymond Authenticated and . [facility]
== END ==
PROVIDERS: PCP Family Medicine; Visit Provider Nurse Practitioner Family
DX: M54.2 Cervicalgia (principal)
CPT/HCPCS: 72125

== ENCOUNTER → 2022-12-17 13:32 | Outpatient (POV) | payer MEDICARE, SELFPAY ==
--- NOTE | 2022-12-17 13:43 | EXP.PAIN.SOA ---
[facility] Pain Management SOAP Note Subjective:: Patient is a pleasant 67-year-old female who presents today for follow-up of CT imaging of cervical spine. We are currently treating the patient for degenerative disc disease of lumbar spine with lumbar radiculopathy symptoms, osteoarthritis bilateral knees, restless leg syndrome, sacroiliitis. Today she rates her pain an 8 out of 10. Patient states her pain is all in her low back along the right side and into her right hip. Patient does describe this is an aching, throbbing sensation that is worse with increased activity. She does state the pain is worse with prolonged sitting, or standing. Patient does state the pain is interfering with her ability to perform activities of daily living such as cooking and cleaning. She is interested in injective therapy. Patient is currently prescribed tramadol 50 mg daily, diclofenac 75 mg twice a day and ropinirole 0.25 mg at bedtime. Patient denies any side effects from these medications. She does states she is fine on the tramadol and does need refills on the other 2 medications. Her Michael is [phone]. Its been reviewed and appropriate. Review of Systems: General: No recent weight changes, no fever, no sleep disturbances Respiratory: No cough, no shortness of air, no recurring pulmonary infections Cardiovascular/peripheral vascular: No chest pain, no palpitations, no edema, no shortness of breath Gastrointestinal: No new onset incontinence, normal bowel movements reported Genitourinary: No new onset incontinence Musculoskeletal: Low back pain, right hip pain Psychiatric: [Normal mood/affect] Neurological: [Denies weakness in extremities], [denies balance issues] Objective:: Physical Exam: General: Alert and oriented x3, no acute distress, pleasant and cooperative Lungs: Respirations even and unlabored, symmetrical chest expansion Eyes: PERRL Musculoskeletal: Flexion and extension of lumbar [spine] somewhat guarded secondary to pain, [antalgic gait noted] extreme point tenderness along right SI with positive right Andreina's, Dawit's, Gaenslen's, compression and distraction exam Neurological: Speech clear, no gross sensory deficit FINDINGS: There is no acute fracture or subluxation. There are mild anterior osteophytes at C5-6. Anterior and posterior osteophytes are seen at C6-7 with mild to moderate bilateral neuroforaminal narrowing. The disc spaces are preserved. The facets are normally aligned. The soft tissues are unremarkable. Limited images of the lung apices are unremarkable. IMPRESSION: Mild to moderate bilateral neuroforaminal narrowing at C6-7. No acute bony abnormality. Reviewed, Interpreted and Dictated by Lencho Whittaker MD Transcribed by Yvonne Raymond Authenticated and [facility] Assessment:: Degenerative disc disease of cervical and lumbar spine with cervical and lumbar radiculopathy symptoms, osteoarthritis bilateral knees, restless leg syndrome, sacroiliitis Plan:: Patient is experiencing worsening pain in her low back along the right side and into her right hip. Patient did have limited range of motion of her lumbar spine along with extreme point tenderness at her right SI and a positive right Andreina's, Dawit's, Gaenslen's, compression and distraction exam. I have discussed with the patient that she may benefit from a right SI injection. Risk and benefits were explained to the patient and she would like to proceed forward with this plan of care. Patient does have a history of chronic sacroiliitis and has had injections in the past that provided more than 80% relief. I will refill the patient's diclofenac 75 mg twice daily and ropinirole 0.25 mg at bedtime and provide a 1 month supply of this medication. We will schedule the patient for a right SI injection. Patient has been instructed to contact the clinic with any concerns before the next appointment.
[2022-12-17 13:55] VITALS: BP 144/78; PULSE 72; RESP 18; O2SAT 98; BMI 31.6
== END | disposition home or self-care (01) ==
PROVIDERS: PCP Family Medicine; Visit Provider Nurse Practitioner Family
DX: M51.16 Intervertebral disc disorders with radiculopathy, lumbar region (principal); M17.0 Bilateral primary osteoarthritis of knee; G25.81 Restless legs syndrome; M46.1 Sacroiliitis, not elsewhere classified; M50.10 Cervical disc disorder with radiculopathy, unspecified cervical region
CPT/HCPCS: 99212; G0463

== ENCOUNTER 2022-12-29 10:06 | Day surgery (SDC) | payer MEDICARE, SELFPAY ==
[2022-12-29 10:17] VITALS: BP 197/72; PULSE 75; RESP 18; TEMP 36.6; O2SAT 98; BMI 32.4
[2022-12-29 10:30] VITALS: BP 180/79; PULSE 75; RESP 18; O2SAT 98
[2022-12-29 10:32] VITALS: BP 180/79; PULSE 76; RESP 18; O2SAT 97
--- NOTE | 2022-12-29 10:36 | EXP.PAIN.PRO ---
Procedure Date: 12/29/22 Time: 10:25 Anesthesiologist:: Bobby Colorado CRNA Complications:: None Pre-procedure Diagnosis:: Right sacroiliitis Post-procedure Diagnosis:: Same Indications for Procedure:: Patient is a very pleasant 67-year-old female that comes our clinic today for repeat right sacroiliac joint injection. Patient describes right posterior hip pain as constant, dull, aching. She rates her pain 7/10. She has had significant improvement terms of her overall right posterior hip pain with previous sacroiliac joint injections of cortisone. Procedure Details:: Procedure: Right sacroliliac joint injection under fluoroscopy Informed consent was obtained and the risk and benefits of the procedure were explained to the patient.~ The patient was taken to the procedure room and noninvasive monitors were placed including noninvasive blood pressure cuff and pulse oximeter.~ The patient was placed prone on the procedure table.~ The~ right hip was cleansed using Betadine as a cleansing solution.~ C-arm fluorosocpy was used to view the right SI joint.~ The skin and subcutaneous tissues were anesthetized using Lidocaine 1.5% and a 25-gauge needle.~ After this, a 22-gauge spinal needle was inserted under fluoroscopic guidance into the inferior aspect of the right SI joint.~ Omnipaque dye was injected and a good spread was seen throughout the joint.~ After this, approximately 5 mL of bupivacaine 0.25% and Depo-Medrol 40 mg was incrementally injected into the sacroiliac joint.~ The patient tolerated the procedure well with no complications.~ The patient was observed in the Pain Clinic, then discharged home neurologically intact.~ Plan and Disposition:: Patient was discharged without incident.
[2022-12-29 10:40] VITALS: BP 159/80; PULSE 66; RESP 20
== END 2022-12-29 10:40 | disposition home or self-care (01) ==
PROVIDERS: PCP Family Medicine; Visit Provider Nurse Anesthetist, Certified Registered
DX: M46.1 Sacroiliitis, not elsewhere classified (principal)
CPT/HCPCS: 27096; G0260; J1040

== ENCOUNTER → 2023-01-14 13:39 | Outpatient (POV) | payer MEDICARE, SELFPAY ==
--- NOTE | 2023-01-14 14:05 | EXP.PAIN.SOA ---
[facility] Pain Management SOAP Note Subjective:: Patient is a pleasant 67-year-old female who presents today for follow-up of right SI injection on 12/29/2022. We are currently treating the patient for degenerative disc disease of cervical and lumbar spine with cervical and lumbar radiculopathy symptoms, osteoarthritis bilateral knees, restless leg syndrome, sacroiliitis. Today she rates her pain a 4 out of 10. Patient states her previous injection did provide roughly 80% relief however only lasting 2 days. Patient had going on vacation and was very hopeful that it would improve her pain symptoms but it did come all the way back and did end up causing more pain down her entire right leg to her foot. Patient does state it goes into her right hip and right groin and has a aching, tingling sensation. Patient denies any symptoms into her left leg. Patient does state that the pain interferes with her ability perform activities of daily living such as cooking and cleaning. Patient does also states that she feels like her restless leg syndrome has been acting up more compared to what it previously was. Patient is currently managed with tramadol 50 mg daily, diclofenac 75 mg twice a day and ropinirole 0.25 mg at night. She denies any side effects from these medications. Her Michael is [id number]. Its been reviewed and appropriate. Review of Systems: General: No recent weight changes, no fever, no sleep disturbances Respiratory: No cough, no shortness of air, no recurring pulmonary infections Cardiovascular/peripheral vascular: No chest pain, no palpitations, no edema, no shortness of breath Gastrointestinal: No new onset incontinence, normal bowel movements reported Genitourinary: No new onset incontinence Musculoskeletal: Low back pain, right leg pain, right hip/groin pain Psychiatric: [Normal mood/affect] Neurological: [Denies weakness in extremities], [denies balance issues] Objective:: Physical Exam: General: Alert and oriented x3, no acute distress, pleasant and cooperative Lungs: Respirations even and unlabored, symmetrical chest expansion Eyes: PERRL Musculoskeletal: Flexion and extension of lumbar [spine] somewhat guarded secondary to pain, [antalgic gait noted] positive right leg raise with decreased sensation to light touch and decreased reflexes along the right leg Neurological: Speech clear, no gross sensory deficit Assessment:: Degenerative disc disease of cervical and lumbar spine with cervical and lumbar radiculopathy symptoms, osteoarthritis bilateral knees, restless leg syndrome, sacroiliitis Plan:: Patient continues to experience significant pain in her low back that is radiating down to her right hip, right groin and down to her right foot. Patient did have limited range of motion of her lumbar spine along with a positive right leg raise and decreased sensation to light touch with decreased reflexes along her right extremity. I have discussed with the patient that she may benefit from a right transforaminal epidural steroid injection. Patient's previous MRI imaging did show multilevel severe narrowing at L4-L5 and L5-S1 along the right side. Risk and benefits of this injection were explained to the patient and she would like to proceed forward with this plan of care. I will also send in refills on her diclofenac 75 mg twice a day and increase her ropinirole to 0.5 mg at bedtime and provide a 1 month supply of these medications. Patient will be scheduled for a right transforaminal epidural steroid injection L4-L5 and L5-S1. Patient has been instructed to contact the clinic with any concerns before the next appointment. Dr. Ferraro has reviewed this note and agrees with this plan of care. This note was dictated using voice recognition software and make contain errors or omissions. [facility] Disclaimer: The information contained in this section may have been updated after the patient was seen, as this information can be updated by other users. Medical
[2023-01-14 14:07] VITALS: BP 171/83; PULSE 67; RESP 18; O2SAT 97; BMI 32.4
== END | disposition home or self-care (01) ==
PROVIDERS: Visit Provider Nurse Practitioner Family
DX: M51.16 Intervertebral disc disorders with radiculopathy, lumbar region (principal); M50.10 Cervical disc disorder with radiculopathy, unspecified cervical region; M17.0 Bilateral primary osteoarthritis of knee; G25.81 Restless legs syndrome; M46.1 Sacroiliitis, not elsewhere classified
CPT/HCPCS: 99212; G0463

== ENCOUNTER 2023-02-02 08:29 | Day surgery (SDC) | payer MEDICARE, SELFPAY ==
[2023-02-02 08:43] VITALS: BP 160/63; PULSE 66; RESP 16; TEMP 36.8; O2SAT 97; BMI 31.6
--- NOTE | 2023-02-02 09:16 | P.PCN_ITS ---
Procedure Date: 02/02/23 Time: 09:08 Anesthesiologist:: Bobby Colorado CRNA Complications:: None Pre-procedure Diagnosis:: Degenerative disease lumbar spine multilevels. Lumbar radiculopathy. Degenerative disc disease cervical spine. Cervical radiculopathy. Post-procedure Diagnosis:: Same. Indications for Procedure:: Very pleasant 67-year-old female comes our clinic today for a right L4-5 and L5- S1 transforaminal epidural steroid injection. Patient is dealing daily with low back pain that she describes as constant, dull, aching. Also, bilateral hip and leg radicular symptoms. Patient has had transforaminal epidurals on the same levels on the left with significant improvement terms of her overall left hip and leg radicular symptoms. She continues with right hip and leg radicular symptoms to the foot. She rates her pain 7/10. Patient has a functioning spinal cord stimulator. She reports the stimulator is helping significantly. Procedure Details:: Details of the procedure were explained to the patient. The patient was taken the procedure room placed in the prone position. The area of the lumbar spine was cleansed using chlorhexidine as a cleansing solution. At this time using fluoroscopy guidance markers were placed on the right lateral border of the L4 and L5 vertebral body. The skin and subcutaneous tissue was anesthetized using 1% lidocaine and 25-gauge needle. At this time using a 22-gauge 3-1/2 inch sp inal needle the right upper one third of the L4-5 foramen was accessed. The same was done at the right L5-S1 foramen. Needle positions were confirmed and a lateral view using fluoroscopy and contrast dye. At this time 1 cc of 1% lidocaine +20 mg of Depo-Medrol was injected at each level after negative aspiration. [place] were removed. Band-Aid applied. Patient tolerated the procedure without difficulty. There are no complications. Plan and Disposition:: Patient was discharged without incident.
[2023-02-02 09:19] VITALS: BP 170/80; PULSE 59; RESP 18; O2SAT 98
== END 2023-02-02 09:19 | disposition home or self-care (01) ==
PROVIDERS: PCP Family Medicine; Visit Provider Nurse Anesthetist, Certified Registered
DX: M51.16 Intervertebral disc disorders with radiculopathy, lumbar region (principal); M50.10 Cervical disc disorder with radiculopathy, unspecified cervical region
CPT/HCPCS: 64483; 64484; J1040; Q9966

== ENCOUNTER → 2023-02-24 08:47 | Outpatient (POV) | payer MEDICARE, SELFPAY ==
--- NOTE | 2023-02-24 09:01 | EXP.PAIN.SOA ---
[facility] Pain Management SOAP Note Subjective:: Patient is a pleasant 67-year-old female who presents today for follow-up of right transforaminal epidural steroid injection L4-L5 and L5-S1 on 02/02/2023. We are currently treating the patient for degenerative disc disease of cervical and lumbar spine with cervical and lumbar radiculopathy symptoms, osteoarthritis bilateral knees, restless leg syndrome and sacroiliitis. Today she rates her pain a 0 out of 10. Patient states she has had 100% improvement following her injection and still continues to provide significant relief. Patient states she has been able to increase her activity with decreased pain symptoms. She states she feels overall more functional. Patient is currently managed with tramadol 50 mg daily, diclofenac 75 mg twice a day and ropinirole 0.25 mg at bedtime. She denies any side effects from this medication. Her Michael has been reviewed. Review of Systems: General: No recent weight changes, no fever, no sleep disturbances Respiratory: No cough, no shortness of air, no recurring pulmonary infections Cardiovascular/peripheral vascular: No chest pain, no palpitations, no edema, no shortness of breath Gastrointestinal: No new onset incontinence, normal bowel movements reported Genitourinary: No new onset incontinence Musculoskeletal: Low back pain Psychiatric: [Normal mood/affect] Neurological: [Denies weakness in extremities], [denies balance issues] Objective:: Physical Exam: General: Alert and oriented x3, no acute distress, pleasant and cooperative Lungs: Respirations even and unlabored, symmetrical chest expansion Eyes: PERRL Musculoskeletal: Flexion and extension of lumbar [spine] somewhat guarded secondary to pain, [antalgic gait noted] Neurological: Speech clear, no gross sensory deficit Assessment:: Degenerative disc disease of cervical and lumbar spine with cervical and lumbar radiculopathy symptoms, osteoarthritis bilateral knees, restless leg syndrome, sacroiliitis Plan:: Patient has had 100% improvement following her transforaminal epidural and does not require any additional injective therapy at this time. I will refill the patient's tramadol 50 mg daily, diclofenac 75 mg twice a day and ropinirole 0.25 mg at bedtime and provide a 1 month supply of these medications. Patient will return to clinic in 1 month for reevaluation of symptoms and plan of care. Patient has been instructed to contact the clinic with any concerns before the next appointment. Dr. Ferraro has reviewed this note and agrees with this plan of care. This note was dictated using voice recognition software and make contain errors or omissions. [facility] Disclaimer: The information contained in this section may have been updated after the patient was seen, as this information can be updated by other users. Medical History Hyperlipidemia Hypertension Thyroid disease Surgical History History of back surgery History of cholecystectomy History of hysterectomy Family History Other No significant family history Social History (Updated 02/02/23 @ 08:44 by Thao Liz RN) Smoking Status: Never smoker second hand exposure: No alcohol intake: never substance use type: denies use current occupational status: employed Travel in the last 8 weeks: None household members: spouse housing: house current occupation: [employer] current occupational exposures/hazards: No caffeine: Yes
[2023-02-24 09:33] VITALS: BP 169/85; PULSE 67; RESP 18; O2SAT 98; BMI 31.6
== END | disposition home or self-care (01) ==
PROVIDERS: PCP Family Medicine; Visit Provider Nurse Practitioner Family
DX: M50.10 Cervical disc disorder with radiculopathy, unspecified cervical region (principal); M51.16 Intervertebral disc disorders with radiculopathy, lumbar region; M17.0 Bilateral primary osteoarthritis of knee; G25.81 Restless legs syndrome; M46.1 Sacroiliitis, not elsewhere classified
CPT/HCPCS: 99212; G0463

== ENCOUNTER → 2023-03-24 09:58 | Outpatient (POV) | payer BC, MEDICARE, SELFPAY ==
--- NOTE | 2023-03-24 10:54 | EXP.PAIN.SOA ---
[facility] Pain Management SOAP Note Subjective:: Patient is a pleasant 67-year-old female who presents today for follow-up. We are currently treating the patient for degenerative disc disease of cervical and lumbar spine with cervical and lumbar radiculopathy symptoms, restless leg syndrome, bilateral knee pain, sacroiliitis. Today she rates her pain a 5 out of 10. Patient denies any new trauma or injury. She does state that they recently went on a trip to [place] and did a lot more walking and that her right hip is really starting to give her problems. Patient does describe this as an aching, stiff sensation that is worse with increased activity or ambulation. Patient has been trying to use heat and rest for improvement. She states that the pain is interfering with her ability perform activities of daily living such as cooking and cleaning. Patient is currently managed with tramadol 50 mg daily, diclofenac 75 mg twice a day and ropinirole 0.5 mg at bedtime. She denies any side effects from these medications. She states she only needs refill on her restless leg medication. Her Michael has been reviewed and is appropriate. Review of Systems: General: No recent weight changes, no fever, no sleep disturbances Respiratory: No cough, no shortness of air, no recurring pulmonary infections Cardiovascular/peripheral vascular: No chest pain, no palpitations, no edema, no shortness of breath Gastrointestinal: No new onset incontinence, normal bowel movements reported Genitourinary: No new onset incontinence Musculoskeletal: Right hip pain Psychiatric: [Normal mood/affect] Neurological: [Denies weakness in extremities], [denies balance issues] Objective:: Physical Exam: General: Alert and oriented x3, no acute distress, pleasant and cooperative Lungs: Respirations even and unlabored, symmetrical chest expansion Eyes: PERRL Musculoskeletal: Flexion and extension of right hip somewhat guarded secondary to pain, [antalgic gait noted] Neurological: Speech clear, no gross sensory deficit Assessment:: Degenerative disc disease of cervical and lumbar spine with cervical and lumbar radiculopathy symptoms, sacroiliitis, knee pain, restless leg syndrome, right hip pain Plan:: Patient is experiencing worsening pain in her right hip with limited range of motion. I have discussed with patient that she may benefit from an intra-articular hip injection. Risk and benefits were discussed with the patient and she would like to proceed forward with this plan of care. Patient will be scheduled for a right hip intra-articular injection. I will refill the patient's ropinirole 0.5 mg at bedtime and provide a 1 month supply of this medication. Patient has been instructed to contact the clinic with any concerns before the next appointment. Dr. Ferraro has reviewed this note and agrees with this plan of care. This note was dictated using voice recognition software and make contain errors or omissions. [facility] Disclaimer: The information contained in this section may have been updated after the patient was seen, as this information can be updated by other users. Medical History Hyperlipidemia Hypertension Thyroid disease Surgical History History of back surgery History of cholecystectomy History of hysterectomy Family History Other No significant family history Social History (Updated 02/02/23 @ 08:44 by Thao Liz RN) Smoking Status: Never smoker second hand exposure: No alcohol intake: never substance use type: denies use current occupational status: employed Travel in the last 8 weeks: None household members: spouse housing: house current occupation: [employer] current occupational exposures/hazards: No caffeine: Yes
[2023-03-24 12:39] VITALS: BP 170/69; PULSE 78; RESP 18; O2SAT 96; BMI 31.6
== END | disposition home or self-care (01) ==
PROVIDERS: PCP Family Medicine; Visit Provider Nurse Practitioner Family
DX: M50.10 Cervical disc disorder with radiculopathy, unspecified cervical region (principal); M51.16 Intervertebral disc disorders with radiculopathy, lumbar region; M46.1 Sacroiliitis, not elsewhere classified; M25.569 Pain in unspecified knee; G25.81 Restless legs syndrome; M25.551 Pain in right hip
CPT/HCPCS: 99212; G0463

== ENCOUNTER 2023-04-09 12:14 | Day surgery (SDC) | payer BC, MEDICARE, SELFPAY ==
[2023-04-09 12:40] VITALS: BP 167/77; PULSE 86; RESP 16; TEMP 36.6; O2SAT 98; BMI 31.6
[2023-04-09 12:43] VITALS: BP 161/95; PULSE 86; O2SAT 97
--- NOTE | 2023-04-09 12:55 | P.PCN_ITS ---
Procedure Date: 04/09/23 Time: 12:40 Anesthesiologist:: Bobby Colorado CRNA Complications:: None Pre-procedure Diagnosis:: DJD right hip. Chronic right hip pain. Post-procedure Diagnosis:: Same. Indications for Procedure:: Patient is a pleasant 67-year-old female comes our clinic today for intra- articular right hip injection. Patient has been experiencing more right hip pain with ambulation over the last couple months. She describes the pain as constant, dull, aching. She rates pain 6/10. Procedure Details:: Details of the procedure were explained to the patient. The patient was taken to procedure room placed in the supine position. The area over the right hip was cleaned using chlorhexidine as a cleansing solution. Using fluoroscopy guidance a 3 and half inch 22-gauge spinal needle was used to access the right hip joint without difficulty. After negative aspiration 3 cc of 1% lidocaine +3 cc of 0.25% Marcaine and 40 mg of Depo-Medrol was injected. Needle was withdrawn. Band-Aid applied. Patient tolerated procedure without difficulty. There are no complications. Plan and Disposition:: Patient was discharged without incident.
[2023-04-09 12:57] VITALS: BP 161/95; PULSE 81; O2SAT 99
[2023-04-09 13:00] VITALS: BP 176/81; PULSE 73; RESP 16; O2SAT 98
== END 2023-04-09 13:00 | disposition home or self-care (01) ==
PROVIDERS: PCP Family Medicine; Visit Provider Nurse Anesthetist, Certified Registered
DX: M16.11 Unilateral primary osteoarthritis, right hip (principal); M25.551 Pain in right hip; G89.29 Other chronic pain
CPT/HCPCS: 20610; 77002; J1040

== ENCOUNTER → 2023-05-03 14:05 | Outpatient (POV) | payer BC, MEDICARE, SELFPAY ==
--- NOTE | 2023-05-03 14:22 | A.OFFVIS_ITS ---
[facility] Pain Management SOAP Note Subjective:: Patient is a pleasant 67-year-old female who presents today for follow-up of right hip intra-articular injection on 04/09/2023. We are currently treating the patient for degenerative disc disease of cervical and lumbar spine with cervical and lumbar radiculopathy symptoms, restless leg syndrome, bilateral knee pain, sacroiliitis, right hip pain. Today she states that she has had at least 80% improvement in her right hip symptoms and feels like it is still continuing to provide additional relief. Today she rates her pain now a 5 out of 10 and states most of her pain is centered around her low back that radiates down her entire left leg. Patient does state this is an aching, throbbing sensation that does have cramping and numbness down the entire leg. Patient states she frequently experiences sensations like her leg is drawing up for that she is kind of dragging her foot. She does state that sometimes it is hard to lift her leg due to feeling like her leg weighs a lot. Patient does state the pain interferes with her ability perform activities of daily living such as cooking and cleaning. Patient does state that earlier last week she did have 2 days where she had severe soreness in her leg however had not done anything significant. Patient is currently managed with tramadol 50 mg daily, diclofenac 75 mg twice a day and ropinirole 0.5 mg at bedtime. Patient denies any side effects from these medications. Her Michael has been reviewed and is appropriate. \ Review of Systems: General: No recent weight changes, no fever, no sleep disturbances Respiratory: No cough, no shortness of air, no recurring pulmonary infections Cardiovascular/peripheral vascular: No chest pain, no palpitations, no edema, no shortness of breath Gastrointestinal: No new onset incontinence, normal bowel movements reported Genitourinary: No new onset incontinence Musculoskeletal: Low back pain, left leg pain Psychiatric: [Normal mood/affect] Neurological: [Denies weakness in extremities], [denies balance issues] Objective:: Physical Exam: General: Alert and oriented x3, no acute distress, pleasant and cooperative Lungs: Respirations even and unlabored, symmetrical chest expansion Eyes: PERRL Musculoskeletal: Flexion and extension of lumbar [spine] somewhat guarded secondary to pain, [antalgic gait noted] positive left leg raise with decreased sensation to light touch and decreased reflexes Neurological: Speech clear, no gross sensory deficit PROCEDURE: MR LUMBAR SPINE WO CON CLINICAL INDICATION: BACK PAIN Prior back surgery. Low back pain with numbness in the left leg COMPARISON: [facility] MRI-L-SPINE W/WO from 02/04/2015 TECHNIQUE: Standard multiplanar multiecho sequences are performed without contrast. 3-D MIP and myelographic images are also rendered and reviewed FINDINGS: There is normal alignment. The spinal cord ends at the L1-L2 level. T11-T12: Mild degenerative disc disease. T12-L1: Mild degenerative disc disease with minimal bulging disc and a small broad-based central right paracentral disc protrusion without impingement. Not significantly changed L1-L2: Unremarkable. L2-L3: Mild facet and ligamentum hypertrophy L3-L4: Degenerative disc disease with minimal bulging disc with facet and ligamentum hypertrophy with bilateral lateral recess and foraminal narrowing. The facet and ligamentum hypertrophy has slightly progressed compared to the previous exam. L4-5: Degenerative disc disease. There is a small central disc osteophyte complex and a small left paracentral disc osteophyte complex similar to the previous exam. There is moderate facet hypertrophic change which is greater on the right compared to the left but not significantly changed. Postsurgical changes are present on the left at this level the with a small laminotomy defect on the left. There is moderate to severe right foraminal narrowing and severe left foraminal narrowing not significantly changed. L5-S1: Degenerative disc disease with bulging disc. There is a heterogeneous area of signal intensity in the left paracentral and foraminal region. This area previously demonstrated contrast enhancement and was felt to be due to epidural fibrosis. Cannot adequately evaluate for epidural fibrosis on today's exam without gadolinium enhancement. This region appears slightly more prominent compared to the previous study with impingement upon the left S1 nerve root and severe left-sided foraminal narrowing. Postsurgical changes are present at this level on the left. There is moderate right foraminal narrowing as well from facet and ligamentum hypertrophy and bulging disc. The IMPRESSION: 1. T12-L1: Mild degenerative disc disease with minimal bulging disc and a small broad-based central right paracentral disc protrusion without impingement. Not significantly changed 2. L3-L4: Degenerative disc disease with minimal bulging disc with facet and ligamentum hypertrophy with bilateral lateral recess and foraminal narrowing. The facet and ligamentum hypertrophy has slightly progressed compared to the previous exam. 3. L4-5: Degenerative disc disease. There is a small central disc osteophyte complex and a small left paracentral disc osteophyte complex similar to the previous exam. There is moderate facet hypertrophic change which is greater on the right compared to the left but not significantly changed. Postsurgical changes are present on the left at this level the with a small laminotomy defect on the left. There is moderate to severe right foraminal narrowing and severe left foraminal narrowing not significantly changed. 4. L5-S1: Degenerative disc disease with bulging disc. There is a heterogeneous area of signal intensity in the left paracentral and foraminal region. This area previously demonstrated contrast enhancement and was felt to be due to epidural fibrosis. Cannot adequately evaluate for epidural fibrosis on today's exam without gadolinium enhancement. This may represent an area of epidural fibrosis versus residual or recurrence disc protrusion or a combination there of. Repeat exam without and with gadolinium enhancement suggested for more thorough evaluation. This region appears slightly more prominent compared to the previous study with impingement upon the left S1 nerve root and severe left-sided foraminal narrowing. Postsurgical changes are present at this level on the left. There is moderate right foraminal narrowing as well from facet and ligamentum hypertrophy and bulging disc. Dictated by: Anibal Jimenes MD 11/23/2019 09:47 Electronically signed by Anibal Jimenes MD in [place] 11/23/2019 09:47 Assessment:: Degenerative disc disease of cervical and lumbar spine with cervical and lumbar radiculopathy symptoms, restless leg syndrome, bilateral knee pain, sacroiliitis, right hip pain Plan:: Patient is experiencing worsening pain in her low back with radiating symptoms down her entire left leg. Patient did have limited range of motion of her lumbar spine along with a positive left leg raise and decreased sensation to light touch and decreased reflexes during today's exam. I have discussed with the patient that she may benefit from a repeat left transforaminal epidural steroid injection. Risk and benefits were discussed with patient and she would like to proceed forward with this plan of care. Patient is not on any blood thinners. Patient did previously have a transforaminal injection back on 02/02/2023 that provided 100% improvement lasting several months. Patient will be scheduled for a left transforaminal epidural steroid injection L4-L5 and L5- S1. I have also counseled the patient that I will send for referral to [facility] for evaluation and possible surgical intervention for her lumbar spine. I will refill the patient's tramadol 50 mg daily, diclofenac 75 mg twice a day and ropinirole 0.5 mg at bedtime and provide a 1 month supply of these medications. Patient has been instructed to contact the clinic with any concerns before the next appointment. Dr. Ferraro has reviewed this note and agrees with this plan of care. This note was dictated using voice recognition software and make contain errors or omissions. [facility] Disclaimer: The information contained in this section may have been updated after the patient was seen, as this information can be updated by other users. Medical History Hyperlipidemia Hypertension Thyroid disease Surgical History History of back surgery History of cholecystectomy History of hysterectomy Family History Other No significant family history Social History Smoking Status: Never smoker second hand exposure: No alcohol intake: never substance use type: denies use current occupational status: retired Travel in the last 8 weeks: None household members: spouse housing: house current occupation: [employer] current occupational exposures/hazards: No caffeine: Yes
[2023-05-03 14:30] VITALS: BP 179/94; PULSE 74; RESP 18; O2SAT 98; BMI 31.6
== END | disposition home or self-care (01) ==
PROVIDERS: Visit Provider Nurse Practitioner Family
DX: M50.10 Cervical disc disorder with radiculopathy, unspecified cervical region (principal); M51.16 Intervertebral disc disorders with radiculopathy, lumbar region; G25.81 Restless legs syndrome; M25.561 Pain in right knee; M25.562 Pain in left knee; M46.1 Sacroiliitis, not elsewhere classified; M25.551 Pain in right hip
CPT/HCPCS: 99212; G0463

== ENCOUNTER 2023-05-18 11:29 | Day surgery (SDC) | payer BC, MEDICARE, SELFPAY ==
[2023-05-18 11:30] VITALS: BP 163/107; PULSE 68; RESP 16; TEMP 36.6; O2SAT 99; BMI 31.6
[2023-05-18 11:54] VITALS: BP 180/71; PULSE 68; RESP 18; O2SAT 100
[2023-05-18] MEDS: LIDOCAINE 1% 5ML PF VIAL 5 ML (11:54)
[2023-05-18 11:56] VITALS: BP 180/71; PULSE 68; RESP 18; O2SAT 100
--- NOTE | 2023-05-18 12:00 | P.PCN_ITS ---
Procedure Date: 05/18/23 Time: 11:38 Anesthesiologist:: Bobby Colorado CRNA Complications:: None Pre-procedure Diagnosis:: Just MR spine multilevels. Lumbar radiculopathy. Lumbar postlaminectomy syndrome. Lumbar foraminal stenosis L4-5 and L5-S1. Disc bulge lumbar spine multilevel. Post-procedure Diagnosis:: Same. Indications for Procedure:: Patient is a very pleasant 67-year-old female comes our clinic today for left transforaminal epidural steroid injection L4-5, L5-S1 level. Patient has low back left hip and leg radicular symptoms she describes as constant, dull, aching. She rates her pain 7/10. Procedure Details:: Details of the procedure were explained to the patient. The patient was taken the procedure room placed in the prone position. The area of the lumbar spine was cleansed using chlorhexidine as a cleansing solution. At this time using fluoroscopy guidance markers were placed on the left lateral border of the L4 and L5 vertebral body. The skin and subcutaneous tissue was anesthetized using 1% lidocaine and 25-gauge needle. At this time using a 22-gauge 3-1/2 inch spinal needle the left upper one third of the L4-5 foramen was accessed. The same was done at the left L5-S1 foramen. Needle positions were confirmed and a lateral view using fluoroscopy and contrast dye. At this time 1 cc of 1% lidocaine +20 mg of Depo-Medrol was injected at each level after negative aspiration. [place] were removed. Band-Aid applied. Patient tolerated the procedure without difficulty. There are no complications. Plan and Disposition:: Patient was discharged without incident.
[2023-05-18 12:05] VITALS: BP 172/83; PULSE 65; RESP 16; O2SAT 100
== END 2023-05-18 12:05 | disposition home or self-care (01) ==
PROVIDERS: PCP Family Medicine; Visit Provider Nurse Anesthetist, Certified Registered
DX: M96.1 Postlaminectomy syndrome, not elsewhere classified (principal); M51.26 Other intervertebral disc displacement, lumbar region; M51.16 Intervertebral disc disorders with radiculopathy, lumbar region; M48.061 Spinal stenosis, lumbar region without neurogenic claudication
CPT/HCPCS: 64483; 64484; J1030

== ENCOUNTER 2023-05-19 09:30 | Outpatient (CLI) | payer BC, MEDICARE, SELFPAY ==
--- NOTE | 2023-05-19 09:37 | CT_ITS ---
FINAL REPORT TECHNIQUE: Axial images were performed through the lumbar spine by computed tomography. Sagittal reconstruction images were also performed. This study was performed with techniques to keep radiation doses as low as reasonably achievable, (ALARA). Individualized dose reduction techniques using automated exposure control or adjustment of mA and/or kV according to the patient''s size were employed. CLINICAL HISTORY: LBP,DDD FINDINGS: Sagittal reconstruction images demonstrate no subluxation. No acute fracture is identified. There are advanced changes of degenerative disc disease at L4-5 and L5-S1. L1-2: No significant disc bulge or protrusion. L2-3: No significant disc bulge or protrusion. L3-4: No significant disc bulge or protrusion. L4-5: There are moderate posterior osteophytes and endplate hypertrophy. There is moderate spinal and moderate bilateral neural foraminal narrowing. L5-S1: There is prominent calcification or ossification in the left lateral recess with high-grade compromise of the left lateral recess. There is moderate left neural foraminal narrowing. Stimulator leads are seen entering the spinal canal at the L1-2 level. IMPRESSION: Calcification or ossification in the left lateral recess at L5-S1 with high-grade compromise of the left lateral recess. Reviewed, Interpreted and Dictated by Lencho Whittaker MD Transcribed by Juliana Oviedo Authenticated and [facility]
== END 2023-05-19 23:59 ==
LOC: RAD 09:31
PROVIDERS: PCP Family Medicine; Visit Provider Nurse Practitioner Family
DX: M51.36 Other intervertebral disc degeneration, lumbar region (principal)
CPT/HCPCS: 72131

== ENCOUNTER → 2023-06-09 12:49 | Outpatient (POV) | payer BC, MEDICARE, SELFPAY ==
--- NOTE | 2023-06-09 12:53 | EXP.PAIN.SOA ---
[facility] Pain Management SOAP Note Subjective:: Patient is a pleasant 67-year-old female who presents today for left transforaminal L4-L5 and L5-S1 follow-up on 05/18/2023. We are currently treating the patient for degenerative disc disease of cervical and lumbar spine with cervical and lumbar radiculopathy symptoms, restless leg syndrome, bilateral knee pain, sacroiliitis, right hip pain. Today she rates her pain a 5 out of 10. She states that she had no improvement following this injection. She states she continues to have a constant aching, throbbing sensation that can get worse with increased activity or ambulation. She does state that it is affecting her sleeping. Patient is currently managed with tramadol 50 mg daily, diclofenac 75 mg twice a day and ropinirole 0.5 mg at bedtime. Patient denies any side effects from these medications. She is requesting refills. At our last visit the patient was sent for neurosurgery consult with Lucho Scott and she does state today that she has an appointment on June 27 with this office. Her Michael has been reviewed and is appropriate. Review of Systems: General: No recent weight changes, no fever, no sleep disturbances Respiratory: No cough, no shortness of air, no recurring pulmonary infections Cardiovascular/peripheral vascular: No chest pain, no palpitations, no edema, no shortness of breath Gastrointestinal: No new onset incontinence, normal bowel movements reported Genitourinary: No new onset incontinence Musculoskeletal: Low back pain Psychiatric: [Normal mood/affect] Neurological: [Denies weakness in extremities], [denies balance issues] Objective:: Physical Exam: General: Alert and oriented x3, no acute distress, pleasant and cooperative Lungs: Respirations even and unlabored, symmetrical chest expansion Eyes: PERRL Musculoskeletal: Flexion and extension of lumbar [spine] somewhat guarded secondary to pain, [antalgic gait noted] Neurological: Speech clear, no gross sensory deficit FINDINGS: Sagittal reconstruction images demonstrate no subluxation. No acute fracture is identified. There are advanced changes of degenerative disc disease at L4-5 and L5-S1. L1-2: No significant disc bulge or protrusion. L2-3: No significant disc bulge or protrusion. L3-4: No significant disc bulge or protrusion. L4-5: There are moderate posterior osteophytes and endplate hypertrophy. There is moderate spinal and moderate bilateral neural foraminal narrowing. L5-S1: There is prominent calcification or ossification in the left lateral recess with high-grade compromise of the left lateral recess. There is moderate left neural foraminal narrowing. Stimulator leads are seen entering the spinal canal at the L1-2 level. IMPRESSION: Calcification or ossification in the left lateral recess at L5-S1 with high-grade compromise of the left lateral recess. Reviewed, Interpreted and Dictated by Lencho Whittaker MD Transcribed by Juliana Oviedo Authenticated and [facility] Assessment:: degenerative disc disease of cervical and lumbar spine with cervical and lumbar radiculopathy symptoms, restless leg syndrome, bilateral knee pain, sacroiliitis, right hip pain Plan:: Patient was reviewed over of her lumbar CT findings. I have discussed with the patient in future she may still benefit from a spinal cord stimulator trial or other injections however I am recommending that she talk to neurosurgery first due to her high-grade spinal compromise at L5-S1. I will increase her tramadol to 50 mg 3 times a day and provide a 1 month supply of this medication along with her diclofenac 75 mg twice a day and ropinirole 0.5 mg at bedtime. Patient will return to clinic in 1 month for reevaluation of symptoms and plan of care. Patient has been instructed to contact the clinic with any concerns before the next appointment. Dr. Ferraro has reviewed this note and agrees with this plan of care. This note was dictated using voice recognition software and make contain errors or omissions. [facility] Disclaimer: The information contained in this section may have been updated after the patient was seen, as this information can be updated by other users. Medical History Hyperlipidemia Hypertension Thyroid disease Surgical History History of back surgery History of cholecystectomy History of hysterectomy Family History Other No significant family history Social History Smoking Status: Never smoker second hand exposure: No alcohol intake: never substance use type: denies use current occupational status: retired Travel in the last 8 weeks: None household members: spouse housing: house current occupation: [employer] current occupational exposures/hazards: No caffeine: Yes
[2023-06-09 14:21] VITALS: BP 186/83; PULSE 69; RESP 20; O2SAT 100; BMI 31.6
== END | disposition home or self-care (01) ==
PROVIDERS: PCP Family Medicine; Visit Provider Nurse Practitioner Family
DX: M50.10 Cervical disc disorder with radiculopathy, unspecified cervical region (principal); M51.16 Intervertebral disc disorders with radiculopathy, lumbar region; G25.81 Restless legs syndrome; M25.561 Pain in right knee; M25.562 Pain in left knee; M46.1 Sacroiliitis, not elsewhere classified; M25.551 Pain in right hip
CPT/HCPCS: 99212; G0463

== ENCOUNTER 2023-07-08 12:56 | Outpatient (POV) | payer BC, MEDICARE, SELFPAY ==
--- NOTE | 2023-07-08 13:53 | EXP.PAIN.SOA ---
[facility] Pain Management SOAP Note Subjective:: Patient is a pleasant 67-year-old female who presents today for follow-up. We are currently treating the patient for degenerative disc disease of cervical and lumbar spine with cervical and lumbar radiculopathy symptoms, restless leg syndrome, bilateral knee pain, sacroiliitis, right hip pain. Today she rates her pain a 7 out of 10. Patient denies any new trauma or injury. From our last visit we did increase her tramadol to 3 times a day however she states she did not notice any additional improvement with that. Patient does also take diclofenac 75 mg twice a day and ropinirole 0.5 mg at bedtime. Patient was previously on muscle relaxer tizanidine however it caused severe dry mouth. She does state that she did follow-up with Luch[facility] Scott related to her lumbar spine and they are thinking she may have to have surgery. She states that she does have to get a CT with contrast. His Michael has been reviewed and is appropriate. \ Review of Systems: General: No recent weight changes, no fever, no sleep disturbances Respiratory: No cough, no shortness of air, no recurring pulmonary infections Cardiovascular/peripheral vascular: No chest pain, no palpitations, no edema, no shortness of breath Gastrointestinal: No new onset incontinence, normal bowel movements reported Genitourinary: No new onset incontinence Musculoskeletal: Low back pain Psychiatric: [Normal mood/affect] Neurological: [Denies weakness in extremities], [denies balance issues] Objective:: Physical Exam: General: Alert and oriented x3, no acute distress, pleasant and cooperative Lungs: Respirations even and unlabored, symmetrical chest expansion Eyes: PERRL Musculoskeletal: Flexion and extension of lumbar [spine] somewhat guarded secondary to pain, [antalgic gait noted] Neurological: Speech clear, no gross sensory deficit Assessment:: Degenerative disc disease of cervical and lumbar spine with cervical and lumbar radiculopathy symptoms, restless leg syndrome, bilateral knee pain, sacroiliitis, right hip pain Plan:: I have counseled the patient due to her worsening pain we will discontinue the tramadol and change it to [place] 5 mg twice daily and provide a 14-day supply of this medication along with baclofen 10 mg at bedtime. We will send in a 4-month supply of her diclofenac 75 mg twice a day and ropinirole 0.5 mg at bedtime. Patient will return to clinic in 2 weeks for reevaluation of symptoms and plan of care. Risks and benefits of the medication have been explained in detail to the patient. The patient does understand the risk of dependence on the medication when given over a prolonged period. Patient has been advised of risks of oversedation with the prescribed medication. Narcan has been offered to the paitent in the event of oversedation. Patient has been advised that a family member should also be educated regarding administration of Narcan. The patient has been advised to consult with his/her primary care provider and pharmacist regarding drug-drug interaction of medications currently prescribed. Patient has been prescribed a controlled substance after being counseled on the medication, medication safety, and possible side effects. Opioid contract was reviewed and signed by the patient, and that they have agreed to all of the terms set forth by our compliance program. Patient has been instructed to contact the clinic with any concerns before the next appointment. Dr. Ferraro has reviewed this note and agrees with this plan of care. This note was dictated using voice recognition software and make contain errors or omissions. [facility] Disclaimer: The information contained in this section may have been updated after the patient was seen, as this information can be updated by other users. Medical History Hyperlipidemia Hypertension Thyroid disease Surgical History History of back surgery History of cholecystectomy History of hysterectomy Family History Other No significant family history Social History Smoking Status: Never smoker second hand exposure: No alcohol intake: never substance use type: denies use current occupational status: other Travel in the last 8 weeks: None household members: spouse housing: house current occupation: [employer] current occupational exposures/hazards: No caffeine: Yes
[2023-07-08 14:15] VITALS: BP 154/83; PULSE 59; RESP 20; O2SAT 100; BMI 31.6
== END 2023-07-08 23:59 | disposition home or self-care (01) ==
PROVIDERS: PCP Family Medicine; Visit Provider Nurse Practitioner Family
DX: M50.10 Cervical disc disorder with radiculopathy, unspecified cervical region (principal); M51.16 Intervertebral disc disorders with radiculopathy, lumbar region; G25.81 Restless legs syndrome; M25.561 Pain in right knee; M25.562 Pain in left knee; M46.1 Sacroiliitis, not elsewhere classified; M25.551 Pain in right hip
CPT/HCPCS: 99212; G0463

== ENCOUNTER 2023-07-22 13:52 | Outpatient (POV) | payer BC, MEDICARE, SELFPAY ==
--- NOTE | 2023-07-22 14:01 | A.OFFVIS_ITS ---
[facility] Pain Management SOAP Note Subjective:: Patient is a pleasant 67-year-old female who presents today for 2-week follow- up. We are currently treating the patient for degenerative disc disease of cervical and lumbar spine with cervical and lumbar radiculopathy symptoms, restless leg syndrome, bilateral knee pain, sacroiliitis, right hip pain. Today she rates her pain a 8 out of 10. Patient denies any new trauma or injury. She does state that she has been having a lot of pain in her bilateral knees and describes it as an aching sensation like a toothache. She does state the pain interferes with her ability to perform activities of daily living like cooking and cleaning. Patient denies any prior replacement surgery. Patient has had injection into her right knee that did provide significant improvement. Patient does state that she does officially have her CT with contrast scheduled on July 29 at [place]. At our last visit we did change her tramadol to [place] 5 mg twice a day and also added baclofen 10 mg at bedtime. Patient states that this did significantly improve her pain symptoms and that she was able to sleep better. Patient does also take diclofenac 75 mg twice a day and ropinirole 0.5 mg at bedtime. Her Michael has been reviewed and is appropriate. Review of Systems: General: No recent weight changes, no fever, no sleep disturbances Respiratory: No cough, no shortness of air, no recurring pulmonary infections Cardiovascular/peripheral vascular: No chest pain, no palpitations, no edema, no shortness of breath Gastrointestinal: No new onset incontinence, normal bowel movements reported Genitourinary: No new onset incontinence Musculoskeletal: Low back pain, bilateral knee pain Psychiatric: [Normal mood/affect] Neurological: [Denies weakness in extremities], [denies balance issues] Objective:: Physical Exam: General: Alert and oriented x3, no acute distress, pleasant and cooperative Lungs: Respirations even and unlabored, symmetrical chest expansion Eyes: PERRL Musculoskeletal: Flexion and extension of bilateral knees somewhat guarded s econdary to pain, [antalgic gait noted] Neurological: Speech clear, no gross sensory deficit Assessment:: Degenerative disc disease of cervical and lumbar spine with cervical and lumbar radiculopathy symptoms, chronic pain syndrome, bilateral knee pain, sacroiliitis, hip pain Plan:: Patient is experiencing significant pain in her bilateral knees with limited range of motion. I have discussed with the patient that she may benefit from bilateral knee intra-articular injection. Risk and benefits were discussed with the patient and she would like to proceed forward with this plan of care. I will also refill the patient's [place] 5 mg twice a day and baclofen 10 mg at bedtime and provide a 1 month supply of this medication. Patient will be scheduled for bilateral knee intra-articular injections. Risks and benefits of the medication have been explained in detail to the patient. The patient does understand the risk of dependence on the medication when given over a prolonged period. Patient has been advised of risks of oversedation with the prescribed medication. Narcan has been offered to the paitent in the event of oversedation. Patient has been advised that a family member should also be educated regarding administration of Narcan. The patient has been advised to consult with his/her primary care provider and pharmacist regarding drug-drug interaction of medications currently prescribed. Patient has been prescribed a controlled substance after being counseled on the medication, medication safety, and possible side effects. Opioid contract was reviewed and signed by the patient, and that they have agreed to all of the terms set forth by our compliance program. Patient has been instructed to contact the clinic with any concerns before the next appointment. Dr. Ferraro has reviewed this note and agrees with this plan of care. This note was dictated using voice recognition software and make contain errors or omissions. [facility] Disclaimer: The information contained in this section may have been updated after the patient was seen, as this information can be updated by other users. 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
[2023-07-22 14:04] VITALS: BP 133/64; PULSE 63; RESP 18; O2SAT 97; BMI 31.6
== END 2023-07-22 23:59 | disposition home or self-care (01) ==
PROVIDERS: Visit Provider Nurse Practitioner Family
DX: M50.10 Cervical disc disorder with radiculopathy, unspecified cervical region (principal); M51.16 Intervertebral disc disorders with radiculopathy, lumbar region; G89.4 Chronic pain syndrome; M25.561 Pain in right knee; M25.562 Pain in left knee; M46.1 Sacroiliitis, not elsewhere classified; M25.559 Pain in unspecified hip
CPT/HCPCS: 99212; G0463

== ENCOUNTER 2023-08-17 10:16 | Day surgery (SDC) | payer BC, MEDICARE, SELFPAY ==
[2023-08-17 10:25] VITALS: BP 178/76; PULSE 73; RESP 16; TEMP 36.2; O2SAT 98; BMI 31.6
--- NOTE | 2023-08-17 10:44 | P.PCN_ITS ---
Procedure Date: 08/17/23 Time: 10:30 Anesthesiologist:: Bobby Colorado CRNA Complications:: None Pre-procedure Diagnosis:: DJD bilateral knee joints. Chronic bilateral knee pain. Post-procedure Diagnosis:: Same. Indications for Procedure:: Patient is a pleasant 67-year-old female that comes her clinic today for bilateral intra-articular knee injections of cortisone. Patient describes bilateral knee pain as constant, dull, aching. She rates the pain 7/10. Patient had right knee injected several years ago with significant relief. She presents today for bilateral intra-articular knee injection. Procedure Details:: Procedure Details: Bilateral intra-articular knee injection Informed consent was obtained risk and benefits of the procedure were explained to the patient. Patient was taken the procedure room both knees were prepped us ing ChloraPrep. A 25-gauge needle was used to inject 10 mL bupivacaine 0.25% and Depo-Medrol 40 mg into each knee. We did a total of 80 mg Depo-Medrol for both knees. The patient tolerated the procedure well with no complications. Plan and Disposition:: Patient was discharged without incident.
[2023-08-17] MEDS: BUPIVACAINE 0.25% 10ML INJ 25 MG IJ (10:48)
[2023-08-17 10:49] VITALS: BP 190/80; PULSE 68; RESP 18; O2SAT 95
[2023-08-17] MEDS: methylPREDNISolone ACETATE 80MG/ML VIAL 80 MG (10:49)
[2023-08-17] MEDS: LIDOCAINE 1% 5ML PF VIAL 5 ML (10:49)
[2023-08-17 10:51] VITALS: BP 190/80; PULSE 68; RESP 18; O2SAT 95
[2023-08-17 11:02] VITALS: BP 175/75; PULSE 62; RESP 18; O2SAT 98
== END 2023-08-17 11:02 | disposition home or self-care (01) ==
PROVIDERS: PCP Family Medicine; Visit Provider Nurse Anesthetist, Certified Registered
DX: M17.0 Bilateral primary osteoarthritis of knee (principal); M25.561 Pain in right knee; M25.562 Pain in left knee; G89.29 Other chronic pain
CPT/HCPCS: 20610; J1010

== ENCOUNTER 2023-08-30 09:13 | Outpatient (POV) | payer BC, MEDICARE, SELFPAY ==
[2023-08-30 09:28] VITALS: BP 166/93; PULSE 78; RESP 18; O2SAT 99; BMI 31.6
--- NOTE | 2023-08-30 09:52 | EXP.PAIN.SOA ---
[facility] Pain Management SOAP Note Subjective:: Patient is a pleasant 67-year-old female who presents today for follow-up of bilateral intra-articular knee injections on 08/16/2020. Today she rates her knee pain a 2 out of 10. Patient states that she has had at least 90% improvement following this injection and feels like they are still helping. Patient does feel like she has improved function. She does state her back pain however is a 5 out of 10 and describes it as an aching, throbbing sensation with numbness and tingling into her legs. Patient denies any new fall or injury. She does state the pain interferes with her ability perform activities of daily living such as cooking and cleaning. Patient does state that she did end up having her lumbar CT with contrast and did follow-up with [facility] for neurosurgery consult. Patient states that he did not really mention that she was a candidate for surgery and that was stating still more conservative treatment such as the injections. Patient states that he did offer to do the injections there however stated since she was already seen in our office if she wanted to continue here. Patient states that she did tell him that she would just continue with's. Patient is interested in an injection for her low back and leg pain. Patient is currently managed with [place] 5 mg twice a day, baclofen 10 mg at bedtime, diclofenac 75 mg twice a day and ropinirole 0.5 mg at bedtime. She denies any side effects from these medications. She states that she needs refill on all of them except her pain medicine. She states she does not take this on a regular basis and does not need refills at this time. Her Michael has been reviewed and is appropriate. Review of Systems: General: No recent weight changes, no fever, no sleep disturbances Respiratory: No cough, no shortness of air, no recurring pulmonary infections Cardiovascular/peripheral vascular: No chest pain, no palpitations, no edema, no shortness of breath Gastrointestinal: No new onset incontinence, normal bowel movements reported Genitourinary: No new onset incontinence Musculoskeletal: Low back pain, bilateral leg pain Psychiatric: [Normal mood/affect] Neurological: [Denies weakness in extremities], [denies balance issues] Objective:: Physical Exam: General: Alert and oriented x3, no acute distress, pleasant and cooperative Lungs: Respirations even and unlabored, symmetrical chest expansion Eyes: PERRL Musculoskeletal: Flexion and extension of lumbar [spine] somewhat guarded secondary to pain, [antalgic gait noted] Neurological: Speech clear, no gross sensory deficit Assessment:: Degenerative disc disease of cervical and lumbar spine with cervical and lumbar radiculopathy symptoms, chronic pain syndrome, bilateral knee pain, sacroiliitis, hip pain Plan:: Patient is continuing to experience significant pain in her low back with radiating symptoms of numbness and tingling into her extremities. Patient did have limited range of motion of her lumbar spine and still continues to show the most significant findings at the L4-L5 level. Patient's most recent CT did show a mild diffuse disc bulge with significant endplate hypertrophic resulting in mild spinal stenosis and moderate right and moderate to high-grade left neuroforaminal narrowing. I discussed with the patient that she may benefit from a lumbar epidural steroid injection at this level. Risk and benefits were discussed with the patient and she would like to proceed forward with this plan of care. Patient has tried and failed conservative therapy including oral medications, heat and ice, topicals, physical therapy, continued at home stretching and exercise for longer than 6 weeks and neurosurgery consult. I will refill the patient's baclofen, diclofenac and ropinirole and provide a 1 month supply of these medications. Patient will be scheduled for an LESI L4-L5 under fluoroscopy. Patient has been instructed to contact the clinic with any concerns before the next appointment. Dr. Ferraro has reviewed this note and agrees with this plan of care. This note was dictated using voice recognition software and make contain errors or omissions. [facility] Disclaimer: The information contained in this section may have been updated after the patient was seen, as this information can be updated by other users. 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
== END 2023-08-30 23:59 | disposition home or self-care (01) ==
PROVIDERS: PCP Family Medicine; Visit Provider Nurse Practitioner Family
DX: M50.10 Cervical disc disorder with radiculopathy, unspecified cervical region (principal); M51.16 Intervertebral disc disorders with radiculopathy, lumbar region; G89.4 Chronic pain syndrome; M25.561 Pain in right knee; M25.562 Pain in left knee; M46.1 Sacroiliitis, not elsewhere classified; M25.559 Pain in unspecified hip
CPT/HCPCS: 99212; G0463

== ENCOUNTER 2023-09-14 13:27 | Day surgery (SDC) | payer MEDICARE, BC, SELFPAY ==
[2023-09-14 13:35] VITALS: BP 165/82; PULSE 64; RESP 18; TEMP 36.5; O2SAT 98; BMI 31.6
[2023-09-14 14:08] VITALS: BP 159/69; PULSE 60; RESP 18; O2SAT 96
[2023-09-14] MEDS: methylPREDNISolone ACETATE 80MG/ML VIAL 80 MG (14:08)
[2023-09-14 14:09] VITALS: BP 159/69; PULSE 65; RESP 18; O2SAT 96
--- NOTE | 2023-09-14 14:10 | EXP.PAIN.PRO ---
Procedure Date: 09/14/23 Time: 14:10 Anesthesiologist:: Bobby Colorado CRNA Complications:: None Pre-procedure Diagnosis:: Degenerative disc lumbar spine multilevels. Lumbar radiculopathy. Lumbar postlaminectomy syndrome. Post-procedure Diagnosis:: Same Indications for Procedure:: Patient is a pleasant 67-year-old female comes our clinic today for repeat lumbar epidural steroid injection at L4-5 level. Patient describes low back pain as constant, dull, aching. She also reports bilateral hip and leg radicular symptoms at times. She rates her pain 6/10. Procedure Details:: Procedure: Lumbar epidural steroid injection under fluoroscopy Informed consent was obtained and the risks and benefits of the procedure were explained to the patient. The patient was taken to the procedure room and noninvasive monitors placed, including noninvasive blood pressure cuff and pulse oximeter. The back was viewed using C-arm Fluoroscopy and prepped using Chloraprep as a cleansing solution and the L4-L5 interspace was palpated. Skin and subcutaneous tissues were anesthetized using lidocaine 1.5% and a 25-gauge needle. After this, an 18-gauge Touhy epidural needle was placed into the L4-L5 interspace and advanced using fluoroscopic guidance and loss of resistance to air until the epidural space was encountered. After confirmation of needle placement in the epidural space, with dye, a solution containing normal saline, 3 mL and Depo-Medrol 80 mg were incrementally injected into the lumbar epidural space. The patient tolerated the procedure well with no complications. The patient was observed in the Pain Clinic and then discharged home neurologically intact. Plan and Disposition:: Patient was discharged without incident.
[2023-09-14 14:13] VITALS: BP 155/83; PULSE 62; RESP 18; O2SAT 98
== END 2023-09-14 14:16 | disposition home or self-care (01) ==
PROVIDERS: PCP Family Medicine; Visit Provider Nurse Anesthetist, Certified Registered
DX: M51.16 Intervertebral disc disorders with radiculopathy, lumbar region (principal); M96.1 Postlaminectomy syndrome, not elsewhere classified
CPT/HCPCS: 62323; J1010

== ENCOUNTER 2023-10-06 09:06 | Outpatient (POV) | payer BC, MEDICARE, SELFPAY ==
[2023-10-06 09:35] VITALS: BP 169/78; BP 170/84; PULSE 64; RESP 16; O2SAT 98; BMI 31.6
--- NOTE | 2023-10-06 09:56 | EXP.PAIN.SOA ---
[facility] Pain Management SOAP Note Subjective:: Patient is a pleasant 67-year-old female who presents today for follow-up of lumbar epidural steroid injection L4-L5 on 09/14/2023. Today she rates her pain a 3 out of 10. She states that she had at least 90% improvement and feels like it still helping. She denies any new trauma or injury. She does feel like she is able to move around easier with overall decreased pain symptoms. Patient does state that she is no longer taking the pain medication because it made her loopy. She is still using her baclofen 10 mg at bedtime, diclofenac 75 mg twice a day and ropinirole 0 point milligrams at night. She denies any side effects from this medication. Her Michael has been reviewed and is appropriate. Review of Systems: General: No recent weight changes, no fever, no sleep disturbances Respiratory: No cough, no shortness of air, no recurring pulmonary infections Cardiovascular/peripheral vascular: No chest pain, no palpitations, no edema, no shortness of breath Gastrointestinal: No new onset incontinence, normal bowel movements reported Genitourinary: No new onset incontinence Musculoskeletal: Low back pain Psychiatric: [Normal mood/affect] Neurological: [Denies weakness in extremities], [denies balance issues] Objective:: Physical Exam: General: Alert and oriented x3, no acute distress, pleasant and cooperative Lungs: Respirations even and unlabored, symmetrical chest expansion Eyes: PERRL Musculoskeletal: Flexion and extension of lumbar [spine] somewhat guarded secondary to pain, [antalgic gait noted] Neurological: Speech clear, no gross sensory deficit Assessment:: Degenerative disc disease of cervical and lumbar spine with cervical and lumbar radiculopathy symptoms, chronic pain syndrome, bilateral knee pain, sacroiliitis, hip pain Plan:: I will refill the patient's baclofen, diclofenac and ropinirole and send in a 1 month supply of this medication. At her next visit we will send in a 3-month supply of these medications. Patient has had significant improvement following her lumbar epidural and does not require any additional injection therapy at this time. Patient will return to clinic in 1 month for reevaluation of symptoms and plan of care. Patient has been instructed to contact the clinic with any concerns before the next appointment. Dr. Ferraro has reviewed this note and agrees with this plan of care. This note was dictated using voice recognition software and make contain errors or omissions. [facility] Disclaimer: The information contained in this section may have been updated after the patient was seen, as this information can be updated by other users. 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
== END 2023-10-06 23:59 | disposition home or self-care (01) ==
PROVIDERS: PCP Family Medicine; Visit Provider Nurse Practitioner Family
DX: M50.10 Cervical disc disorder with radiculopathy, unspecified cervical region (principal); M51.16 Intervertebral disc disorders with radiculopathy, lumbar region; G89.4 Chronic pain syndrome; M25.561 Pain in right knee; M25.562 Pain in left knee; M46.1 Sacroiliitis, not elsewhere classified; M25.559 Pain in unspecified hip
CPT/HCPCS: 99212; G0463

== ENCOUNTER 2023-11-17 09:02 | Outpatient (POV) | payer BC, MEDICARE, SELFPAY ==
[2023-11-17 09:17] VITALS: BP 139/82; PULSE 78; RESP 16; O2SAT 98; BMI 31.6
--- NOTE | 2023-11-17 09:34 | EXP.PAIN.SOA ---
[facility] Disclaimer: The information contained in this section may have been updated after the patient was seen, as this information can be updated by other users. 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 Today she rates her pain a 4 out of 10. Patient does state that the pain will get much worse as the day goes on exceeding a 5 or 6 out of 10. Patient denies any new trauma or injury. She states today the pain is all in her low back and hips. Patient does state the pain is an aching, throbbing sensation with numbness and tingling. She denies any radiating symptoms down into her legs. Patient states the pain is worse with prolonged sitting or standing or walking. She states it is interfering with her ability to perform activities of daily living such as cooking and cleaning. Patient is interested in any help we may be able to provide. Patient is currently managed with baclofen 10 mg at bedtime, diclofenac 75 mg twice a day ropinirole 0.5 mg at at bedtime. She denies any side effects from this medication. Her Michael has been reviewed and is appropriate. Review of Systems: General: No recent weight changes, no fever, no sleep disturbances Respiratory: No cough, no shortness of air, no recurring pulmonary infections Cardiovascular/peripheral vascular: No chest pain, no palpitations, no edema, no shortness of breath Gastrointestinal: No new onset incontinence, normal bowel movements reported Genitourinary: No new onset incontinence Musculoskeletal: Low back pain, bilateral hip pain Psychiatric: [Normal mood/affect] Neurological: [Denies weakness in extremities], [denies balance issues] Pain at rest (0-10 scale): 5 Objective Objective:: Physical Exam: General: Alert and oriented x3, no acute distress, pleasant and cooperative Lungs: Respirations even and unlabored, symmetrical chest expansion Eyes: PERRL Musculoskeletal: Flexion and extension of lumbar [spine] somewhat guarded secondary to pain, [antalgic gait noted] point tenderness along bilateral SIs with positive bilateral Andreina's, Dawit's, Gaenslen's, compression and distraction exam Neurological: Speech clear, no gross sensory deficit Has patient had previous pain injection?: No Conservative treatment options previously tried: NSAIDS Length of treatment: Longer than 12 weeks, Home exercise plan Length of treatment: Longer than 12 weeks and Prescription medications Length of treatment: Longer than 12 weeks Meds Home Medications and Allergies Home Medications ?Medication ?Instructions ?Recorded ?Confirmed ?Type levothyroxine 100 mcg tablet 100 mg PO DAILY hypothyroid 03/11/18 11/17/23 History losartan 50 mg tablet 50 mg PO DAILY bp 04/10/20 11/17/23 History cyclobenzaprine 10 mg tablet 10 mg PO TID PRN cramps #90 tabs 11/28/20 11/17/23 Rx tizanidine 4 mg tablet 4 mg PO HS spasms #30 tabs 04/29/22 11/17/23 Rx ropinirole 0.25 mg tablet 0.25 mg PO DAILY Restless leg #30 12/17/22 11/17/23 Rx tabs atorvastatin 10 mg tablet 10 mg PO DAILY Cholesterol 12/29/22 11/17/23 History omeprazole 10 mg capsule,delayed 10 mg PO DAILY Cholesterol 12/29/22 11/17/23 History release tramadol 50 mg tablet 50 mg PO TID . #90 tabs 06/09/23 11/17/23 Rx hydrocodone 5 mg-acetaminophen 325 1 tab PO BID #60 tabs 07/22/23 11/17/23 Rx mg tablet baclofen 10 mg tablet 10 mg PO HS #30 tabs 10/06/23 11/17/23 Rx diclofenac sodium 75 mg 75 mg PO BID Pain #60 tabs 10/06/23 11/17/23 Rx tablet,delayed release ropinirole 0.5 mg tablet 0.5 mg PO HS #30 tabs 10/06/23 11/17/23 Rx baclofen 10 mg tablet 10 mg PO HS #30 tabs 11/15/23 11/17/23 Rx New Prescriptions to Start Prescriptions: Allergies Allergy/AdvReac Type Severity Reaction Status Date / Time No Known Drug Allergies Allergy Unknown Verified 08/17/23 10:37 [NO KNOWN DRUG ALLERGIES] Assessment and Plan *Assessment and plan (1) Bilateral sacroiliitis: Status: Acute Category: Medical Code(s): M46.1 - Sacroiliitis, not elsewhere classified Plan Patient is experiencing worsening pain in her low back and bilateral hips. Patient did have limited range of motion of her lumbar spine with extreme point tenderness along her bilateral SIs and a positive bilateral Andreina's, Dawit's, Gaenslen's, compression and distraction exam. I have discussed with patient that she may benefit from bilateral SI injections. Risk and benefits were discussed with patient and she would like to proceed forward with this plan of care. Patient has tried and failed conservative therapy including continued at home stretching exercise for longer than 12 weeks. Patient has had these injections in the past and did get 80% relief with her last injection in December 2022. Patient states that she felt like this injection did help significantly lasting at least 2 to 3 months. we will submit to insurance for bilateral SI injections under fluoroscopy. Patient has been instructed to contact the clinic with any concerns before the next appointment. Dr. Ferraro has reviewed this note and agrees with this plan of care. This note was dictated using voice recognition software and make contain errors or omissions.
== END 2023-11-17 23:59 | disposition home or self-care (01) ==
LOC: SC.PAIN 09:03
PROVIDERS: PCP Family Medicine; Visit Provider Nurse Practitioner Family
DX: M46.1 Sacroiliitis, not elsewhere classified (principal)
CPT/HCPCS: 99212; G0463

== ENCOUNTER 2023-11-30 08:37 | Day surgery (SDC) | payer MEDICARE, BC, SELFPAY ==
[2023-11-30 08:47] VITALS: BP 129/73; PULSE 72; RESP 16; TEMP 36.7; O2SAT 99; BMI 31.6
[2023-11-30] MEDS: LIDOCAINE 1% 5ML PF VIAL 5 ML (09:18)
[2023-11-30 09:19] VITALS: BP 142/63; PULSE 74; RESP 18; O2SAT 100
[2023-11-30] MEDS: methylPREDNISolone ACETATE 80MG/ML VIAL 80 MG (09:19)
[2023-11-30] MEDS: BUPIVACAINE 0.25% 10ML INJ 25 MG IJ (09:19)
[2023-11-30 09:21] VITALS: BP 164/83; PULSE 72; RESP 18; O2SAT 99
--- NOTE | 2023-11-30 09:21 | P.PCN_ITS ---
Procedure Date: 11/30/23 Time: 09:12 Anesthesiologist:: Bobby Colorado CRNA Complications:: None Pre-procedure Diagnosis:: Bilateral sacroiliitis Post-procedure Diagnosis:: Same. Indications for Procedure:: Patient is a very pleasant 68-year-old female comes her clinic today for bilateral sacroiliac joint injection with cortisone. She describes low back pain off the midline bilaterally is constant, dull, aching. She reports sitting and/or standing for any length of time is painful. She describes difficulty transitioning from sitting to standing due to bilateral posterior hip pain. She rates her pain 7/10. Procedure Details:: Procedure: Bilateral sacroiliac joint injections under fluoroscopy Informed consent was obtained and the risks and benefits of the procedure were explained to the patient.~ The patient was taken to the procedure room and noninvasive monitors were placed including a noninvasive blood pressure cuff and pulse oximeter.~ The patient was placed prone on the procedure table. Both hips were cleansed using Betadine as a cleansing solution. C-arm fluoroscopy was used to view the right sacroiliac joint.~ The skin and subcutaneous tissues were anesthetized using lidocaine 1.5% and a 25-gauge needle.~ After this, a 22-gauge spinal needle was inserted under fluoroscopic guidance into the inferior aspect of the right sacroiliac joint.~ Omnipaque dye was injected and good spread was seen throughout the joint.~ After this, approximately 5 mL of bupivacaine, 0.25% and Depo-Medrol, 40 mg was incrementally injected into the right sacroiliac joint. We then moved to the left sacroiliac joint.~ The skin and subcutaneous tissues were anesthetized using lidocaine 1.5% and a 25-gauge needle.~ After this, a 22- gauge spinal needle was inserted under fluoroscopic guidance into the inferior aspect of the left sacroiliac joint.~ Omnipaque dye was injected and good spread was seen throughout the joint. After this, approximately 5 mL of bupivacaine, 0.25% and Depo-Medrol, 40 mg was incrementally injected into the left sacroiliac joint.~ The patient tolerated the procedure well with no complications. The patient was observed in the Pain Clinic and then was discharged home neurologically intact. Plan and Disposition:: Patient was discharged out incident.
[2023-11-30 09:23] VITALS: BP 142/63; PULSE 74; RESP 18; O2SAT 100
== END 2023-11-30 09:21 | disposition home or self-care (01) ==
PROVIDERS: PCP Family Medicine; Visit Provider Nurse Anesthetist, Certified Registered
DX: M46.1 Sacroiliitis, not elsewhere classified (principal)
CPT/HCPCS: 27096; G0260; J1010

== ENCOUNTER 2024-01-03 13:41 | Outpatient (CLI) | payer BC, MEDICARE, SELFPAY ==
--- NOTE | 2024-01-03 13:49 | XR_ITS ---
FINAL REPORT CLINICAL HISTORY: MUSCLE SPASM SHOULDER PAIN COMPARISON: None FINDINGS: LEFT SHOULDER 3 views demonstrate no acute fracture or dislocation. There is mild AC joint degenerative change. The visualized bony structures are well aligned. No soft tissue abnormality is seen. IMPRESSION: Mild degenerative change without acute process. Reviewed, Interpreted and Dictated by Diego Alfredo III, MD Transcribed by Noni Salvador Authenticated and [facility]
== END 2024-01-03 23:59 | disposition home or self-care (01) ==
LOC: RAD 13:43
PROVIDERS: PCP Nurse Practitioner; Visit Provider Nurse Practitioner
DX: M62.838 Other muscle spasm (principal); M25.512 Pain in left shoulder
CPT/HCPCS: 73030

== ENCOUNTER 2024-01-17 15:01 | Outpatient (POV) | payer BC, MEDICARE, SELFPAY ==
[2024-01-17 16:09] VITALS: BP 180/90; PULSE 77; RESP 18; O2SAT 97; BMI 31.6
--- NOTE | 2024-01-17 16:09 | EXP.PAIN.SOA ---
[facility] Disclaimer: The information contained in this section may have been updated after the patient was seen, as this information can be updated by other users. 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 Today she rates her pain a 6 out of 10. Patient states that she has had 90% improvement following these injections and feels like they are still working. Patient does state all of her pain today is more related to her neck, her left shoulder and left arm. Patient does state that it is a constant aching, throbbing sensation with tingling going down the extremity. Patient states it is progressively worsened over time and does interfere with her ability to perform activities of daily living such as cooking and cleaning. Patient did have her x-ray imaging and is here to review over those findings of her left shoulder. Patient is managed with baclofen 10 mg at bedtime, diclofenac 75 mg twice a day and ropinirole 0.5 mg at bedtime. Patient states she does not need any of these refilled except her diclofenac. Patient has tried and failed conservative therapy including continued at home stretching exercise for longer than 6 weeks. Her Michael has been reviewed and is appropriate. Review of Systems: General: No recent weight changes, no fever, no sleep disturbances Respiratory: No cough, no shortness of air, no recurring pulmonary infections Cardiovascular/peripheral vascular: No chest pain, no palpitations, no edema, no shortness of breath Gastrointestinal: No new onset incontinence, normal bowel movements reported Genitourinary: No new onset incontinence Musculoskeletal: Neck pain, left shoulder pain, left arm numbness tingling Psychiatric: [Normal mood/affect] Neurological: [Denies weakness in extremities], [denies balance issues] Pain at rest (0-10 scale): 6 Objective Objective:: Physical Exam: General: Alert and oriented x3, no acute distress, pleasant and cooperative Lungs: Respirations even and unlabored, symmetrical chest expansion Eyes: PERRL Musculoskeletal: Flexion and extension of cervical [spine] somewhat guarded secondary to pain, [antalgic gait noted] positive Spurling's test Neurological: Speech clear, no gross sensory deficit FINDINGS: There is no acute fracture or subluxation. There are mild anterior osteophytes at C5-6. Anterior and posterior osteophytes are seen at C6-7 with mild to moderate bilateral neuroforaminal narrowing. The disc spaces are preserved. The facets are normally aligned. The soft tissues are unremarkable. Limited images of the lung apices are unremarkable. IMPRESSION: Mild to moderate bilateral neuroforaminal narrowing at C6-7. No acute bony abnormality. Reviewed, Interpreted and Dictated by Lencho Whittaker MD Transcribed by Yvonne Raymond Authenticated and [facility] Has patient had previous pain injection?: Yes Percent improvement in pain since last injection: 90% Conservative treatment options previously tried: Home exercise plan Length of treatment: Longer than 6 weeks Meds Home Medications and Allergies Home Medications ?Medication ?Instructions ?Recorded ?Confirmed ?Type levothyroxine 100 mcg tablet 100 mg PO DAILY hypothyroid 03/11/18 01/17/24 History losartan 50 mg tablet 50 mg PO DAILY bp 04/10/20 01/17/24 History cyclobenzaprine 10 mg tablet 10 mg PO TID PRN cramps #90 tabs 11/28/20 01/17/24 Rx tizanidine 4 mg tablet 4 mg PO HS spasms #30 tabs 04/29/22 01/17/24 Rx ropinirole 0.25 mg tablet 0.25 mg PO DAILY Restless leg #30 12/17/22 01/17/24 Rx tabs atorvastatin 10 mg tablet 10 mg PO DAILY Cholesterol 12/29/22 01/17/24 History omeprazole 10 mg capsule,delayed 10 mg PO DAILY Cholesterol 12/29/22 01/17/24 History release tramadol 50 mg tablet 50 mg PO TID . #90 tabs 06/09/23 01/17/24 Rx hydrocodone 5 mg-acetaminophen 325 1 tab PO BID #60 tabs 07/22/23 01/17/24 Rx mg tablet baclofen 10 mg tablet 10 mg PO HS #30 tabs 10/06/23 01/17/24 Rx diclofenac sodium 75 mg 75 mg PO BID Pain #60 tabs 10/06/23 01/17/24 Rx tablet,delayed release baclofen 10 mg tablet 10 mg PO HS #30 tabs 11/15/23 01/17/24 Rx ropinirole 0.5 mg tablet 0.5 mg PO HS #30 tabs 12/08/23 01/17/24 Rx New Prescriptions to Start Prescriptions: Allergies Allergy/AdvReac Type Severity Reaction Status Date / Time No Known Drug Allergies Allergy Unknown Verified 11/30/23 08:50 [NO KNOWN DRUG ALLERGIES] Assessment and Plan *Assessment and plan (1) Degenerative disc disease, cervical: Status: Acute Category: Medical Code(s): M50.30 - Other cervical disc degeneration, unspecified cervical region (2) Cervical radiculopathy: Status: Acute Category: Medical Code(s): M54.12 - Radiculopathy, cervical region Plan Patient is experiencing worsening pain in her neck with radiating numbness and tingling into her left shoulder and down her entire left extremity. Patient did have limited range of motion and a positive Spurling's test along with previous imaging that did show narrowing at the C6-C7 level. I did discuss with the patient that she may benefit from a cervical epidural at this level. Risk and benefits were discussed with patient and she would like to proceed forward with this plan of care. Patient is not on any blood thinners. Patient will be scheduled for a SELINA C6-C7 under fluoroscopy. Patient has tried and failed conservative therapy including oral medication, heat and ice, topicals, continued at home stretching exercise in between injections for longer than 6 weeks. I will also refill the patient's diclofenac and provide a 3-month supply of this medication. Patient has been instructed to contact the clinic with any concerns before the next appointment. Dr. Ferraro has reviewed this note and agrees with this plan of care. This note was dictated using voice recognition software and make contain errors or omissions. All injections are used with Lidocaine or Bupivacaine and Depo Medrol.
== END 2024-01-17 23:59 | disposition home or self-care (01) ==
PROVIDERS: PCP Family Medicine; Visit Provider Nurse Practitioner Family
DX: M50.10 Cervical disc disorder with radiculopathy, unspecified cervical region (principal); Z96.82 Presence of neurostimulator; Z73.89 Other problems related to life management difficulty
CPT/HCPCS: 99212; G0463

== ENCOUNTER 2024-02-08 11:22 | Day surgery (SDC) | payer BC, MEDICARE, SELFPAY ==
[2024-02-08 11:40] VITALS: BP 173/71; PULSE 61; RESP 16; O2SAT 99; BMI 31.6
[2024-02-08] MEDS: methylPREDNISolone ACETATE 80MG/ML VIAL 80 MG (11:56)
[2024-02-08] MEDS: IOPAMIDOL-200 (41%);10ML VIAL 10 ML IV (11:57)
[2024-02-08 12:00] VITALS: BP 168/87; PULSE 60; RESP 16; O2SAT 100
--- NOTE | 2024-02-08 12:06 | P.PCN_ITS ---
Procedure Date: 02/08/24 Time: 11:40 Anesthesiologist:: Bobby Colorado CRNA Complications:: None Pre-procedure Diagnosis:: Degenerative disc cervical spine multilevels. Cervical radiculopathy Post-procedure Diagnosis:: Same. Indications for Procedure:: Patient is a very pleasant 68-year-old female who comes our clinic today for cervical epidural steroid injection. Patient describes posterior cervical neck pain is constant, dull, aching. Patient also reports bilateral arm radicular symptoms. She rates her pain 7/10. Procedure Details:: Procedure:Cervical epidural steroid injection Informed consent was obtained and the risks and benefits of the procedure were explained to the patient. The patient was taken to the procedure room and noninvasive monitors placed, including noninvasive blood pressure cuff and pulse oximeter. The neck was prepped using Chloraprep as a cleansing solution. The C6- C7 interspace was viewed using fluroscopy. The skin and subcutaneous tissues were anesthetized using lidocaine 1.5% and a 25-gauge needle. After this an 18- gauge Touhy epidural needle was placed into the C6-C7 interspace under fluroscopy guidance and advanced using loss of resistance to air until the epidural space was encountered. After confirmation of needle placement in the epidural space using contrast dye, a solution containing normal saline, 2 mL and Depo-Medrol 80 mg was incrementally injected into the cervical epidural space.~ The patient tolerated the procedure well with no complications. The patient was observed in the Pain Clinic and then discharged home neurologically intact. Plan and Disposition:: Patient was discharged without incident.
== END 2024-02-08 12:00 | disposition home or self-care (01) ==
PROVIDERS: PCP Family Medicine; Visit Provider Nurse Anesthetist, Certified Registered
DX: M50.30 Other cervical disc degeneration, unspecified cervical region (principal); M54.12 Radiculopathy, cervical region
CPT/HCPCS: 62321; J1010; Q9966

== ENCOUNTER 2024-02-24 08:07 | Outpatient (POV) | payer BC, MEDICARE, SELFPAY ==
--- NOTE | 2024-02-24 08:57 | A.OFFVIS_ITS ---
[facility] Disclaimer: The information contained in this section may have been updated after the patient was seen, as this information can be updated by other users. 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 Today she rates her pain a 9 out of 10. She does state that her neck pain and arm symptoms are much better and rates at least 85% relief. She does today however state the pain she is experiencing is all in her low back and hips as well as her upper thighs. She describes this as an aching, throbbing sensation with pressure sensations. She does state the pain interferes with her ability perform activities of daily living. Patient does state that it is aggravated with prolonged positioning such as sitting or standing. She states she is having more difficulty walking due to the pain. Patient is interested in additional injection therapy for this issue. Patient is currently managed with baclofen 10 mg at bedtime, diclofenac 75 mg twice a day and ropinirole 0.5 mg at night. She denies any side effects from this medication. Her Michael has been reviewed and is appropriate. Review of Systems: General: No recent weight changes, no fever, no sleep disturbances Respiratory: No cough, no shortness of air, no recurring pulmonary infections Cardiovascular/peripheral vascular: No chest pain, no palpitations, no edema, no shortness of breath Gastrointestinal: No new onset incontinence, normal bowel movements reported Genitourinary: No new onset incontinence Musculoskeletal: Low back pain, bilateral hip pain Psychiatric: [Normal mood/affect] Neurological: [Denies weakness in extremities], [denies balance issues] Pain at rest (0-10 scale): 9 Objective Objective:: Physical Exam: General: Alert and oriented x3, no acute distress, pleasant and cooperative Lungs: Respirations even and unlabored, symmetrical chest expansion Eyes: PERRL Musculoskeletal: Flexion and extension of lumbar [spine] somewhat guarded secondary to pain, [antalgic gait noted] point tenderness along bilateral SIs with positive bilateral Andreina's, Dawit's, Gaenslen's, compression and distraction exam Neurological: Speech clear, no gross sensory deficit Has patient had previous pain injection?: Yes Percent improvement in pain since last injection: 85% Conservative treatment options previously tried: Home exercise plan Length of treatment: Longer than 12-week Meds Home Medications and Allergies Home Medications ?Medication ?Instructions ?Recorded ?Confirmed ?Type levothyroxine 100 mcg tablet 100 mg PO DAILY hypothyroid 03/11/18 02/08/24 History losartan 50 mg tablet 50 mg PO DAILY bp 04/10/20 02/08/24 History cyclobenzaprine 10 mg tablet 10 mg PO TID PRN cramps #90 tabs 11/28/20 02/08/24 Rx tizanidine 4 mg tablet 4 mg PO HS spasms #30 tabs 04/29/22 02/08/24 Rx ropinirole 0.25 mg tablet 0.25 mg PO DAILY Restless leg #30 12/17/22 02/08/24 Rx tabs atorvastatin 10 mg tablet 10 mg PO DAILY Cholesterol 12/29/22 02/08/24 History omeprazole 10 mg capsule,delayed 10 mg PO DAILY Cholesterol 12/29/22 02/08/24 History release tramadol 50 mg tablet 50 mg PO TID . #90 tabs 06/09/23 02/08/24 Rx hydrocodone 5 mg-acetaminophen 325 1 tab PO BID #60 tabs 07/22/23 02/08/24 Rx mg tablet baclofen 10 mg tablet 10 mg PO HS #30 tabs 10/06/23 02/08/24 Rx baclofen 10 mg tablet 10 mg PO HS #30 tabs 11/15/23 02/08/24 Rx ropinirole 0.5 mg tablet 0.5 mg PO HS #30 tabs 12/08/23 02/08/24 Rx diclofenac sodium 75 mg 75 mg PO BID Pain #60 tabs 01/17/24 02/08/24 Rx tablet,delayed release New Prescriptions to Start Prescriptions: Allergies Allergy/AdvReac Type Severity Reaction Status Date / Time No Known Drug Allergies Allergy Unknown Verified 11/30/23 08:50 [NO KNOWN DRUG ALLERGIES] Assessment and Plan *Assessment and plan (1) Bilateral sacroiliitis: Status: Acute Category: Medical Code(s): M46.1 - Sacroiliitis, not elsewhere classified (2) Greater trochanteric bursitis of right hip: Status: Acute Category: Medical Code(s): M70.61 - Trochanteric bursitis, right hip Plan Patient is experiencing significant pain in her low back and bilateral hips with limited range of motion and point tenderness along her SI joints. She did also have a positive Andreina's, Dawit's, Gaenslen's, compression and distraction exam. I did discuss with the patient that I do believe she would benefit from bilateral SI injections. Patient has had a longstanding history of sacroiliitis and did just get her last injections roughly 3 months ago. These injections did provide 90% improvement and have lasted up until about the last week. Risk and benefits of the SI injections were discussed with the patient and she would like to proceed forward with this plan of care. Patient will be scheduled for bilateral SI injections under fluoroscopy. She has tried and failed conservative therapy including continued at home stretching exercise for longer than 12 weeks. I will also refill her diclofenac, ropinirole and baclofen and provide a 3-month supply of this medication. Patient has been instructed to contact the clinic with any concerns before the next appointment. Dr. Ferraro has reviewed this note and agrees with this plan of care. This note was dictated using voice recognition software and make contain errors or omissions. All injections are used with Lidocaine or Bupivacaine and Depo Medrol.
[2024-02-24 09:06] VITALS: BP 157/89; PULSE 68; RESP 16; O2SAT 100; BMI 31.6
== END 2024-02-24 23:59 | disposition home or self-care (01) ==
PROVIDERS: PCP Family Medicine; Visit Provider Nurse Practitioner Family
DX: M46.1 Sacroiliitis, not elsewhere classified (principal); M70.61 Trochanteric bursitis, right hip; Z73.89 Other problems related to life management difficulty
CPT/HCPCS: 99212; G0463

== ENCOUNTER 2024-03-14 11:23 | Day surgery (SDC) | payer BC, MEDICARE, SELFPAY ==
[2024-03-14 11:27] VITALS: BP 167/70; PULSE 66; RESP 16; TEMP 36.9; O2SAT 97; BMI 31.6
--- NOTE | 2024-03-14 11:41 | P.PCN_ITS ---
Procedure Date: 03/14/24 Time: 11:35 Anesthesiologist:: Bobby Colorado CRNA Complications:: None Pre-procedure Diagnosis:: Bilateral sacroiliitis Post-procedure Diagnosis:: Same Indications for Procedure:: Patient is a pleasant six 8-year-old female comes our clinic today for bilateral sacroiliac joint injection of cortisone and local anesthetic. She describes low lumbar back pain off the midline bilaterally as constant, dull, aching. She reports difficulty transitioning from sitting to standing. Difficulty with ambulation. She rates her pain 7/10. Procedure Details:: Procedure: Bilateral sacroiliac joint injections under fluoroscopy Informed consent was obtained and the risks and benefits of the procedure were explained to the patient.~ The patient was taken to the procedure room and noninvasive monitors were placed including a noninvasive blood pressure cuff and pulse oximeter.~ The patient was placed prone on the procedure table. Both hips were cleansed using Betadine as a cleansing solution. C-arm fluoroscopy was used to view the right sacroiliac joint.~ The skin and subcutaneous tissues were anesthetized using lidocaine 1.5% and a 25-gauge needle.~ After this, a 22-gauge spinal needle was inserted under fluoroscopic guidance into the inferior aspect of the right sacroiliac joint.~ Omnipaque dye was injected and good spread was seen throughout the joint.~ After this, approximately 5 mL of bupivacaine, 0.25% and Depo-Medrol, 40 mg was incrementally injected into the right sacroiliac joint. We then moved to the left sacroiliac joint.~ The skin and subcutaneous tissues were anesthetized using lidocaine 1.5% and a 25-gauge needle.~ After this, a 22- gauge spinal needle was inserted under fluoroscopic guidance into the inferior aspect of the left sacroiliac joint.~ Omnipaque dye was injected and good spread was seen throughout the joint. After this, approximately 5 mL of bupivacaine, 0.25% and Depo-Medrol, 40 mg was incrementally injected into the left sacroiliac joint.~ The patient tolerated the procedure well with no complications. The patient was observed in the Pain Clinic and then was discharged home neurologically intact. Plan and Disposition:: Patient was discharged without incident.
[2024-03-14] MEDS: LIDOCAINE 1% 5ML PF VIAL 5 ML (11:52)
[2024-03-14] MEDS: BUPIVACAINE 0.25% 10ML INJ 25 MG IJ (11:52)
[2024-03-14] MEDS: methylPREDNISolone ACETATE 80MG/ML VIAL 80 MG (11:52)
[2024-03-14 11:53] VITALS: BP 172/76; PULSE 69; RESP 18; O2SAT 98
[2024-03-14 11:55] VITALS: BP 172/76; PULSE 68; RESP 18; O2SAT 98
[2024-03-14 12:03] VITALS: BP 156/92; PULSE 66; RESP 16; O2SAT 98
== END 2024-03-14 12:03 | disposition home or self-care (01) ==
PROVIDERS: PCP Family Medicine; Visit Provider Nurse Anesthetist, Certified Registered
DX: M46.1 Sacroiliitis, not elsewhere classified (principal)
CPT/HCPCS: 27096; G0260; J1010

== ENCOUNTER 2024-04-06 13:39 | Outpatient (POV) | payer BC, MEDICARE, SELFPAY ==
[2024-04-06 14:36] VITALS: BP 146/63; PULSE 68; RESP 18; O2SAT 96; BMI 31.6
--- NOTE | 2024-04-06 14:48 | EXP.PAIN.SOA ---
[facility] Disclaimer: The information contained in this section may have been updated after the patient was seen, as this information can be updated by other users. 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 Patient does rate her pain today a 6 out of 10. She states that she has been experience a lot more pain in her bilateral knees with any type of activity or ambulation. She does describe it as a burning, aching sensation and does state that she has started having more cramps in her lower legs that is worse at night as well. Patient does state that she has had at least 80% improvement following her SI injections and feels like that it was more beneficial the first few days but is still helping. She states that it is not as significant as what it initially was but it is definitely improved her overall function in her low back. Patient denies any new trauma or injury. Patient does state the pain in her knees is interfering with her ability perform activities of daily living such as cooking and cleaning. Patient is currently managed with baclofen 10 mg at bedtime, diclofenac 75 mg twice a day and ropinirole 0.5 mg at bedtime. She denies any side effects from this medication. Her Michael has been reviewed and is appropriate. Review of Systems: General: No recent weight changes, no fever, no sleep disturbances Respiratory: No cough, no shortness of air, no recurring pulmonary infections Cardiovascular/peripheral vascular: No chest pain, no palpitations, no edema, no shortness of breath Gastrointestinal: No new onset incontinence, normal bowel movements reported Genitourinary: No new onset incontinence Musculoskeletal: Bilateral knee pain Psychiatric: [Normal mood/affect] Neurological: [Denies weakness in extremities], [denies balance issues] Pain at rest (0-10 scale): 6 Objective Objective:: Physical Exam: General: Alert and oriented x3, no acute distress, pleasant and cooperative Lungs: Respirations even and unlabored, symmetrical chest expansion Eyes: PERRL Musculoskeletal: Flexion and extension of bilateral knees somewhat guarded secondary to pain, [antalgic gait noted] Neurological: Speech clear, no gross sensory deficit Has patient had previous pain injection?: Yes Percent improvement in pain since last injection: 80% Conservative treatment options previously tried: Home exercise plan Length of treatment: Longer than 12 weeks Meds Home Medications and Allergies Home Medications ?Medication ?Instructions ?Recorded ?Confirmed ?Type levothyroxine 100 mcg tablet 100 mg PO DAILY hypothyroid 03/11/18 04/06/24 History losartan 50 mg tablet 50 mg PO DAILY bp 04/10/20 04/06/24 History cyclobenzaprine 10 mg tablet 10 mg PO TID PRN cramps #90 tabs 11/28/20 04/06/24 Rx tizanidine 4 mg tablet 4 mg PO HS spasms #30 tabs 04/29/22 04/06/24 Rx ropinirole 0.25 mg tablet 0.25 mg PO DAILY Restless leg #30 12/17/22 04/06/24 Rx tabs atorvastatin 10 mg tablet 10 mg PO DAILY Cholesterol 12/29/22 04/06/24 History omeprazole 10 mg capsule,delayed 10 mg PO DAILY Cholesterol 12/29/22 04/06/24 History release tramadol 50 mg tablet 50 mg PO TID . #90 tabs 06/09/23 04/06/24 Rx hydrocodone 5 mg-acetaminophen 325 1 tab PO BID #60 tabs 07/22/23 04/06/24 Rx mg tablet ropinirole 0.5 mg tablet 0.5 mg PO HS #30 tabs 12/08/23 04/06/24 Rx baclofen 10 mg tablet 10 mg PO HS #30 tabs 02/24/24 04/06/24 Rx diclofenac sodium 75 mg 75 mg PO BID Pain #60 tabs 02/24/24 04/06/24 Rx tablet,delayed release New Prescriptions to Start Prescriptions: Allergies Allergy/AdvReac Type Severity Reaction Status Date / Time No Known Drug Allergies (NO Allergy Unknown Verified 11/30/23 08:50 KNOWN DRUG ALLERGIES) Assessment and Plan *Assessment and plan (1) Bilateral knee pain: Status: Acute Category: Medical Code(s): M25.561 - Pain in right knee; M25.562 - Pain in left knee Plan Patient is experiencing worsening pain in her bilateral knees with very limited range of motion. Patient did previously have bilateral knee intra-articular injections back in July 2023 that did provide 90% improvement and have lasted more than 6 months. I did discuss with the patient risk and benefits of repeat intra-articular injections and she would like to proceed forward with this plan of care. Patient has tried and failed conservative therapy including oral medications, heat and ice, topicals, continued at home stretching exercise between injections with no additional changes. Patient will be submitted for bilateral knee intra-articular injections. These will be done without fluoroscopic guidance. I will also make sure she has refills on her baclofen, diclofenac and ropinirole. We did discuss about possibly increasing her ropinirole however we will follow-up with this after her knee injections. Patient has been instructed to contact the clinic with any concerns before the next appointment. Dr. Ferraro has reviewed this note and agrees with this plan of care. This note was dictated using voice recognition software and make contain errors or omissions. All injections are used with Lidocaine, Bupivacaine and Depo Medrol. Occasionally urine drug screen is needed to verify patient's compliance with our office pain contract. This is ordered based off specific treatments related to chronic pain with the potential to abuse certain medications.
== END 2024-04-06 23:59 | disposition home or self-care (01) ==
PROVIDERS: PCP Family Medicine; Visit Provider Nurse Practitioner Family
DX: M25.561 Pain in right knee (principal); M25.562 Pain in left knee; Z73.89 Other problems related to life management difficulty
CPT/HCPCS: 99212; G0463

== ENCOUNTER → 2024-05-16 11:58 | Day surgery (SDC) | payer BC, MEDICARE, SELFPAY ==
[2024-05-16 12:27] VITALS: BP 169/81; PULSE 72; RESP 18; O2SAT 99; BMI 31.6
[2024-05-16 12:46] VITALS: BP 170/79; PULSE 70; RESP 18; O2SAT 99
--- NOTE | 2024-05-16 12:49 | P.PCN_ITS ---
Procedure Date: 05/16/24 Time: 12:30 Anesthesiologist:: Bobby Colorado CRNA Complications:: None Pre-procedure Diagnosis:: DJD bilateral knee. Chronic bilateral knee pain. Post-procedure Diagnosis:: Same. Indications for Procedure:: Patient is a 68-year-old female who comes our clinic today for bilateral intra- articular knee injections of cortisone and local anesthetic. Patient reports bilateral knee pain that is constant, dull, aching. Left greater than right. She has had significant improvement in terms of her overall bilateral knee pain with previous injections. She rates her pain 6/10. Procedure Details:: Details of the procedure explained to the patient. The patient taken procedure room placed in the sitting position. The over the right knee was cleaned using chlorhexidine as a cleansing solution. Using a 22-gauge inch and half needle the right knee joint was accessed from the anterior lateral position. After negative aspiration 4 cc of 1% lidocaine +4 cc of 0.25% Marcaine and 40 mg of Depo-Medrol was injected. Patient tolerated procedure without difficulty. There are no complications. Details of the procedure explained to the patient. The patient taken procedure room placed in the sitting position. The over the left knee was cleaned using chlorhexidine as a cleansing solution. Using a 22-gauge inch and half needle the left knee joint was accessed from the anterior lateral position. After negative aspiration 4 cc of 1% lidocaine +4 cc of 0.25% Marcaine and 40 mg of Depo-Medrol was injected. Patient tolerated procedure without difficulty. There are no complications. Plan and Disposition:: Patient was discharged without incident.
[2024-05-16] MEDS: BUPIVACAINE 0.25% 10ML INJ 25 MG IJ (13:14)
[2024-05-16] MEDS: LIDOCAINE 1% 5ML PF VIAL 5 ML (13:14)
[2024-05-16 13:15] VITALS: BP 170/79; PULSE 70; RESP 18; O2SAT 98
[2024-05-16] MEDS: methylPREDNISolone ACETATE 80MG/ML VIAL 80 MG (13:15)
[2024-05-16 13:16] VITALS: BP 170/79; PULSE 82; RESP 18; O2SAT 98
== END | disposition home or self-care (01) ==
PROVIDERS: PCP Family Medicine; Visit Provider Nurse Anesthetist, Certified Registered
DX: M17.0 Bilateral primary osteoarthritis of knee (principal); M25.561 Pain in right knee; M25.562 Pain in left knee; G89.29 Other chronic pain
CPT/HCPCS: 20610; J1010

== ENCOUNTER 2024-05-31 14:35 | Outpatient (POV) | payer BC, MEDICARE, SELFPAY ==
--- NOTE | 2024-05-31 14:53 | EXP.PAIN.SOA ---
[facility] Disclaimer: The information contained in this section may have been updated after the patient was seen, as this information can be updated by other users. Medical History Hyperlipidemia Hypertension Thyroid disease Surgical History History of back surgery History of cholecystectomy History of hysterectomy Family History Other No significant family history Social History (Updated 05/16/24 @ 12:30 by Lida Bae RN) Smoking Status: Never smoker second hand exposure: No alcohol intake: never substance use type: denies use current occupational status: employed Travel in the last 8 weeks: None household members: spouse housing: house current occupation: [employer] current occupational exposures/hazards: No caffeine: Yes PM Subjective & Objective Subjective Subjective:: Patient is a pleasant 68-year-old female who presents today for follow-up of bilateral intra-articular knee injections on 05/16/2024. Today she rates her pain a 0 out of 10 in her knee pain however does write an 8 out of 10 for her low back and hip pain. She denies any new trauma or injury. She does state that she has had at least 90 percent improvement in her knee. She states she has been able to move around easier and ambulate better. Today though she is having more complaints all across her low back and hip area. She states that it is aggravated with prolonged positioning and frequently has to change positions due to the worsening pain. Patient does feel like her last injections that were in her low back have officially worn off. Patient would like to see about getting injections for this worsening pain. Patient is currently managed with baclofen 10 mg at bedtime, diclofenac 75 mg twice a day and ropinirole 0.5 mg at bedtime. She denies any side effects from this medication. At her last visit we did also discuss about increasing her ropinirole due to the worsening leg cramps. She states that she would like to try the increased dosage. Her Michael has been reviewed and is appropriate. Review of Systems: General: No recent weight changes, no fever, no sleep disturbances Respiratory: No cough, no shortness of air, no recurring pulmonary infections Cardiovascular/peripheral vascular: No chest pain, no palpitations, no edema, no shortness of breath Gastrointestinal: No new onset incontinence, normal bowel movements reported Genitourinary: No new onset incontinence Musculoskeletal: Low back pain, bilateral hip pain Psychiatric: [Normal mood/affect] Neurological: [Denies weakness in extremities], [denies balance issues] Pain at rest (0-10 scale): 8 Objective Objective:: Physical Exam: General: Alert and oriented x3, no acute distress, pleasant and cooperative Lungs: Respirations even and unlabored, symmetrical chest expansion Eyes: PERRL Musculoskeletal: Flexion and extension of lumbar [spine] somewhat guarded secondary to pain, [antalgic gait noted] point tenderness along bilateral SIs with positive bilateral Andreina's, Dawit's, Gaenslen's, compression and distraction exam Neurological: Speech clear, no gross sensory deficit Has patient had previous pain injection?: Yes Percent improvement in pain since last injection: 90% Conservative treatment options previously tried: Home exercise plan Length of treatment: Longer than 12 weeks Meds Home Medications and Allergies Home Medications ?Medication ?Instructions ?Recorded ?Confirmed ?Type levothyroxine 100 mcg tablet 100 mg PO DAILY hypothyroid 03/11/18 04/06/24 History losartan 50 mg tablet 50 mg PO DAILY bp 04/10/20 04/06/24 History cyclobenzaprine 10 mg tablet 10 mg PO TID PRN cramps #90 tabs 11/28/20 04/06/24 Rx tizanidine 4 mg tablet 4 mg PO HS spasms #30 tabs 04/29/22 04/06/24 Rx ropinirole 0.25 mg tablet 0.25 mg PO DAILY Restless leg #30 12/17/22 04/06/24 Rx tabs atorvastatin 10 mg tablet 10 mg PO DAILY Cholesterol 12/29/22 04/06/24 History omeprazole 10 mg capsule,delayed 10 mg PO DAILY Cholesterol 12/29/22 04/06/24 History release tramadol 50 mg tablet 50 mg PO TID . 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 Allergies Allergy/AdvReac Type Severity Reaction Status Date / Time No Known Drug Allergies (NO Allergy Unknown Verified 11/30/23 08:50 KNOWN DRUG ALLERGIES) Assessment and Plan *Assessment and plan (1) Bilateral knee pain: Status: Acute Category: Medical Code(s): M25.561 - Pain in right knee; M25.562 - Pain in left knee (2) Greater trochanteric bursitis of right hip: Status: Acute Category: Medical Code(s): M70.61 - Trochanteric bursitis, right hip (3) Cervical radiculopathy: Status: Acute Category: Medical Code(s): M54.12 - Radiculopathy, cervical region (4) Degenerative disc disease, cervical: Status: Acute Category: Medical Code(s): M50.30 - Other cervical disc degeneration, unspecified cervical region (5) Bilateral sacroiliitis: Status: Acute Category: Medical Code(s): M46.1 - Sacroiliitis, not elsewhere classified Plan Patient has had significant improvement following her knee injections and does not require any additional injections at that location. Patient however is having worsening pain all across her low back and bilateral hips. Patient did have extreme point tenderness along her bilateral SI joints and a positive bilateral Andreina's, Dawit's, Gaenslen's and compression exam. I did discuss with the patient that I do believe she would benefit from repeat SI injections. Patient has had longstanding chronic history of sacroiliitis and has had injections over the years. Patient's last injections were in February that did provide 80% relief and lasted up until about the last week. Patient has continued conservative treatment including oral medication, heat and ice, topicals, at home stretching exercise that was physician guided for longer than 12 weeks between injections. Patient will be scheduled for bilateral SI injections under fluoroscopy. I will also increase her ropinirole to 1 mg at bedtime and provide a 30-day supply. Patient has been instructed to contact the clinic with any concerns before the next appointment. Dr. Ferraro has reviewed this note and agrees with this plan of care. This note was dictated using voice recognition software and make contain errors or omissions. All injections are used with Lidocaine, Bupivacaine and Depo Medrol. Occasionally urine drug screen is needed to verify patient's compliance with our office pain contract. This is ordered based off specific treatments related to chronic pain with the potential to abuse certain medications.
[2024-05-31 15:05] VITALS: BP 154/90; PULSE 71; RESP 14; O2SAT 98; BMI 31.6
== END 2024-05-31 23:59 | disposition home or self-care (01) ==
PROVIDERS: PCP Family Medicine; Visit Provider Nurse Practitioner Family
DX: M25.561 Pain in right knee (principal); M25.562 Pain in left knee; M70.61 Trochanteric bursitis, right hip; M50.10 Cervical disc disorder with radiculopathy, unspecified cervical region; M46.1 Sacroiliitis, not elsewhere classified
CPT/HCPCS: 99212; G0463

== ENCOUNTER 2024-06-01 11:09 | Emergency (ER) | payer BC, MEDICARE, SELFPAY ==
[2024-06-01] VITALS (10 sets, daily range): BP systolic 136–179; BP diastolic 70–98; PULSE 58–78; RESP 18–20; TEMP 36.7–36.9; O2SAT 96–100; BMI 31.6
--- NOTE | 2024-06-01 11:14 | ED_ITS ---
Discharge Plan Disposition Patient Disposition: Home, Self-Care Condition: Fair Prescriptions Prescriptions: New methocarbamol 500 mg tablet 500 mg PO TID Qty: 30 0RF gabapentin 300 mg capsule 300 mg PO TID Qty: 30 0RF No Action levothyroxine 100 MCG tablet 100 mg PO DAILY losartan 50 MG tablet 50 mg PO DAILY cyclobenzaprine 10 MG tablet 10 mg PO TID PRN (Reason: cramps) Qty: 90 0RF tizanidine 4 MG tablet 4 mg PO HS Qty: 30 2RF atorvastatin 10 mg tablet 10 mg PO DAILY omeprazole 10 mg capsule,delayed release(DR/EC) 10 mg PO DAILY tramadol 50 mg tablet 50 mg PO TID Qty: 90 0RF ropinirole 1 mg tablet 1 mg PO HS Qty: 30 0RF Rx Instructions: administer 1-3 hours before bedtime ropinirole 0.25 MG tablet 0.25 mg PO DAILY Qty: 30 1RF hydrocodone-acetaminophen 5-325 mg tablet 1 tab PO BID Qty: 60 0RF baclofen 10 mg tablet 10 mg PO HS Qty: 30 2RF diclofenac sodium 75 MG tablet,delayed release (DR/EC) 75 mg PO BID Qty: 60 2RF Referrals Follow up/Referrals: Lashaun Hines MD [Primary Care Provider] - See instructions Activity Restrictions/Add. Instructions Additional Instructions/Restrictions: Return to the emergency department if you develop fevers, numbness weakness tingling, worsening pain despite medications at home or if you become concerned for your health. Do not take the Robaxin with your other lower muscle relaxers such as tizanidine or cyclobenzaprine. Please follow up with your primary care provider in 2-3 days. Please return to ED if your symptoms worsen, change in location, change in severity, new symptoms develop or if you become concerned for your health. Clinical Impressions Clinical Impression: Lumbar back pain Stand Alone Forms Stand Alone Forms: Work/School Release Print Language Print Language: Serbian Discharge ED Provider: Sukumar Corea Adult HPI General Chief complaint: PAIN Stated complaint: lower back pain since 05/31 Time Seen by Provider: 06/01/24 11:13 History of Present Illness HPI narrative: Patient is a 68-year-old female with a history of chronic low back pain, hypertension, hypothyroidism. 4 years ago, patient had a spinal stimulator implanted. Had adjustments made 2 weeks ago due to worsening pain. She reports an acute worsening of her chronic back pain yesterday before going to bed. It was difficult to get sleep last night secondary to the pain. She denies any pre ceding trauma. Denies any new numbness weakness or tingling. Just reports chronic pain in the lumbar region radiating to the left and down the posterior aspect of her left leg consistent with sciatic pain. She has tried 1 hydrocodone at home and 1 Tylenol with no relief. Denies any fevers recent infectious-like symptoms. Related Data Home Medications ?Medication ?Instructions ?Recorded ?Confirmed levothyroxine 100 mcg tablet 100 mg PO DAILY hypothyroid 03/11/18 06/01/24 losartan 50 mg tablet 50 mg PO DAILY bp 04/10/20 06/01/24 atorvastatin 10 mg tablet 10 mg PO DAILY Cholesterol 12/29/22 06/01/24 omeprazole 10 mg capsule,delayed 10 mg PO DAILY Cholesterol 12/29/22 06/01/24 release Previous Rx's ?Medication ?Instructions ?Recorded cyclobenzaprine 10 mg tablet 10 mg PO TID PRN cramps #90 tabs 11/28/20 tizanidine 4 mg tablet 4 mg PO HS spasms #30 tabs 04/29/22 ropinirole 0.25 mg tablet 0.25 mg PO DAILY Restless leg #30 12/17/22 tabs tramadol 50 mg tablet 50 mg PO TID . #90 tabs 06/09/23 hydrocodone 5 mg-acetaminophen 325 1 tab PO BID #60 tabs 07/22/23 mg tablet baclofen 10 mg tablet 10 mg PO HS #30 tabs 02/24/24 diclofenac sodium 75 mg 75 mg PO BID Pain #60 tabs 02/24/24 tablet,delayed release ropinirole 1 mg tablet 1 mg PO HS #30 tabs 05/31/24 gabapentin 300 mg capsule 300 mg PO TID #30 caps 06/01/24 methocarbamol 500 mg tablet 500 mg PO TID #30 tabs 06/01/24 Allergies Allergy/AdvReac Type Severity Reaction Status Date / Time No Known Drug Allergies (NO Allergy Unknown Verified 11/30/23 08:50 KNOWN DRUG ALLERGIES) [facility] Disclaimer: The information contained in this section may have been updated after the patient was seen, as this information can be updated by other users. 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 current occupational exposures/hazards: No caffeine: Yes Have you lived/traveled outside US in past 30 days?: No Contact w/someone who lives/traveled outside US past 30 days?: No Exposure to someone with infectious disease in past 14 days?: No Do you have a fever (greater than 100.4 F or 38 C)?: No Have you tested positive for COVID-19: No Exposed to someone with COVID-19 in past 14 days?: No Do you have a sore throat?: No Do you have a cough?: No Do you have any weakness?: No Do you have any diarrhea?: No Are you experiencing any unusual bleeding?: No Do you have any muscle aches/pain?: No Do you have any abdominal pain?: No Are you experiencing loss of taste or smell?: No Other Medical History Have you received the Flu Vaccine for this season: No Have you received the Pneumonia Vaccine: No ROS Obtained: Yes All systems reviewed & no additional complaints except as documented Physical Exam General General appearance: alert and in no apparent distress Head Head exam: atraumatic and normocephalic Eye Eye exam: Present PERRL and EOMI ENT ENT exam: Present normal oropharynx Neck Neck exam: Present full ROM and trachea midline Chest Chest inspection: Present symmetric chest wall rise Respiratory Respiratory exam: Present normal lung sounds bilaterally; Absent stridor Cardiovascular Cardiovascular exam: Present regular rate and normal rhythm Abdominal Exam Abdominal exam: Present soft; Absent distention or tenderness Extremities Exam Extremities exam: Present full ROM Back Exam Back exam: Present tenderness (Midline to palpation of the lumbar region radiating to the left paraspinal region. Palpable muscle spasm on the left. Good PT pulse and full range of motion with some pain when flexing the hip.) Neurological Exam Neurological exam: Present alert and oriented X3 Psychiatric Psychiatric exam: Present normal mood Skin Skin exam: Present warm and dry Medical Decision Making Medical Records Screening: Per USPSTF and CDC recommendations, given the prevalence of disease in our region, it is our hospital?s policy to screen for HIV and viral Hepatitis for all patients aged 18 and over and those with ongoing risk factors. Michael Inquiry Pt receiving controlled substance: Yes Michael was queried for this patient: Yes Risks and benefits of using a controlled substance: were discussed with pt by me Vital Signs: 06/01/24 11:10 06/01/24 11:15 06/01/24 11:30 Temperature 98.5 F Temperature Source Oral Pulse Rate 77 68 Pulse Rate [Left] 78 Respiratory Rate 20 Blood Pressure 179/98 H 164/80 H Blood Pressure [Left Arm] 179/98 H Blood Pressure Mean [Left Arm] 125 02 Sat by Pulse Oximetry 100 100 99 Oxygen Delivery Method Room Air 06/01/24 12:01 06/01/24 12:30 06/01/24 13:00 Temperature Temperature Source Pulse Rate 66 61 62 Pulse Rate [Left] Respiratory Rate Blood Pressure 149/71 H 148/70 H 149/72 H Blood Pressure [Left Arm] Blood Pressure Mean [Left Arm] 02 Sat by Pulse Oximetry 100 96 96 Oxygen Delivery Method Room Air Room Air Room Air 06/01/24 13:31 06/01/24 14:00 06/01/24 14:31 Temperature Temperature Source Pulse Rate 60 58 L 61 Pulse Rate [Left] Respiratory Rate Blood Pressure 136/73 157/77 H 164/75 H Blood Pressure [Left Arm] Blood Pressure Mean [Left Arm] 02 Sat by Pulse Oximetry 99 98 98 Oxygen Delivery Method Room Air Room Air Room Air 06/01/24 14:44 Temperature 98.1 F Temperature Source Pulse Rate 77 Pulse Rate [Left] Respiratory Rate 18 Blood Pressure 164/72 H Blood Pressure [Left Arm] Blood Pressure Mean [Left Arm] 02 Sat by Pulse Oximetry Oxygen Delivery Method Room Air Orders (Tests/Meds): ED MEDICATIONS Discontinued Medications Generic Name Dose Route Start Last Admin Trade Name Freq PRN Reason Stop Dose Admin Gabapentin 300 mg 06/01/24 12:59 06/01/24 13:06 Gabapentin 300mg Capsule PO 06/01/24 13:00 300 mg ONCE ONE Administration Ketorolac Tromethamine 15 mg 06/01/24 11:49 06/01/24 11:53 Ketorolac 30mg/Ml Vial IM 06/01/24 11:50 15 mg ONCE ONE Administration Methocarbamol 1,000 mg 06/01/24 11:49 06/01/24 11:54 Methocarbamol 500mg Tablet PO 06/01/24 11:50 1,000 mg ONCE ONE Administration Oxycodone HCl 5 mg 06/01/24 13:35 06/01/24 13:38 Oxycodone 5mg Immediate Release Tablet PO 06/01/24 13:36 5 mg ONCE ONE Administration Medical Decision Narrative: In summary, this 68-year-old female presents to the emergency department today with acute on chronic back pain. On initial evaluation patient is afebrile, hemodynamically stable, neurovascularly intact. She does have some numbness in the left lower extremity, but she reports that this is chronic. She has no saddle anesthesia and denies any urinary incontinence or bowel incontinence. Denies any dysuria or hematuria. Never had a kidney stone before.. Differential diagnosis includes but is not limited to fracture, secretion with sprain, strain, spasm, neurovascular compromise, cauda equina. Based on these concerns, I ordered symptomatic management as below. I considered the utility of adding CT of the lumbar spine or MRI, but the likelihood of cauda equina is very low given that this is acute exacerbation of chronic symptoms and patient is having no urinary incontinence or saddle anesthesia. Urinating appropriately. Ambulatory. No saddle anesthesia. Patient received Toradol, Robaxin, Neurontin, oxycodone for treatment. On reassessment patient reports improvement in her pain. She is ambulatory about the emergency department. Remains without concerning findings for neurovascular compromise or cauda equina. She has leftover oxycodones at home. She reports relief with the Neurontin. Will prescribe a short course of 300 mg 3 times daily. She is given strict precautions on how to use this as well as importance of following up with her pain management clinic.. Patient's prescriptions were reviewed and reviewed from the [facility] and demonstrates oxycodone prescription filled last year. Admission as considered and given patient is ambulatory and pain well- controlled, felt reasonable to discharge at this time. At this time it was felt that the patient was safe to be discharged home. The patient was in agreement with this plan. The patient was given strict return precautions prior to being discharged from the emergency department. Critical Care Critical Care Time Critical Care Time: No
[2024-06-01] MEDS: KETOROLAC 30MG/ML VIAL 15 MG IM (11:53)
[2024-06-01] MEDS: METHOCARBAMOL 500MG TABLET 1000 MG PO (11:54)
[2024-06-01] MEDS: GABAPENTIN 300MG CAPSULE 300 MG PO (13:06)
[2024-06-01] MEDS: OXYCODONE 5MG IMMEDIATE RELEASE TABLET 5 MG PO (13:38)
--- NOTE | 2024-06-01 14:05 | PC.NURSE ---
pt reports much improvement in pain after medication. able to ambulate.
== END 2024-06-01 14:45 | disposition home or self-care (01) ==
PROVIDERS: Emergency Provider Emergency Medicine; PCP Family Medicine
DX: M54.50 Low back pain, unspecified (principal); G89.29 Other chronic pain
CPT/HCPCS: 96372; 99283; J1885

== ENCOUNTER 2024-06-04 11:53 | Emergency (ER) | payer BC, MEDICARE, SELFPAY ==
[2024-06-04 11:54] VITALS: BP 148/71; PULSE 73; RESP 20; TEMP 36.9; O2SAT 99; BMI 31.6
--- NOTE | 2024-06-04 12:23 | HMH.EDGENADL ---
Discharge Plan Disposition Patient Disposition: Home, Self-Care Prescriptions Prescriptions: New lidocaine 5 % adhesive patch,medicated 1 patch topical DAILY Qty: 15 0RF Rx Instructions: leave on most painful area for up to 12 hrs No Action levothyroxine 100 MCG tablet 100 mg PO DAILY losartan 50 MG tablet 50 mg PO DAILY cyclobenzaprine 10 MG tablet 10 mg PO TID PRN (Reason: cramps) Qty: 90 0RF tizanidine 4 MG tablet 4 mg PO HS Qty: 30 2RF atorvastatin 10 mg tablet 10 mg PO DAILY omeprazole 10 mg capsule,delayed release(DR/EC) 10 mg PO DAILY tramadol 50 mg tablet 50 mg PO TID Qty: 90 0RF ropinirole 1 mg tablet 1 mg PO HS Qty: 30 0RF Rx Instructions: administer 1-3 hours before bedtime hydrocodone-acetaminophen 5-325 mg tablet 1 tab PO BID Qty: 60 0RF ropinirole 0.25 MG tablet 0.25 mg PO DAILY Qty: 30 1RF baclofen 10 mg tablet 10 mg PO HS Qty: 30 2RF diclofenac sodium 75 MG tablet,delayed release (DR/EC) 75 mg PO BID Qty: 60 2RF methocarbamol 500 mg tablet 500 mg PO TID Qty: 30 0RF gabapentin 300 mg capsule 300 mg PO TID Qty: 30 0RF Referrals Follow up/Referrals: Lashaun Hines MD [Primary Care Provider] - See instructions Activity Restrictions/Add. Instructions Additional Instructions/Restrictions: At this time it was felt you are safe to be discharged home. If new or worsening symptoms please do not hesitate to return the emergency department. Please follow-up with physical therapy, they should contact you for an appointment. If they do not contact you [place] [facility] [place] them at [phone] and say that you were seen in the emergency department and Dr. Dangelo wanted to evaluated. Please continue to take your gabapentin as it was previously prescribed and continue to follow-up with Dr. Ferraro. Clinical Impressions Clinical Impression: Sciatica Instructions Patient Instructions: DI for Low Back Pain Print Language Print Language: Japanese Discharge ED Provider: Danny Dangelo General Adult HPI General Chief complaint: Back Pain/Injury Stated complaint: severe pain in lower back Time Seen by Provider: 06/04/24 12:08 Mode of Arrival: Wheelchair Source of Information: Patient Limitations: No Limitations Description of Symptoms (Recalled from ER Triage Doc. by RN): Patient presents to triage via wheelchair. is with patient. Patient states she is seen by pain management for chronic pain. States that she was seen for pain in her left lower back radiating down to the knee. States she called pain management who ordered her Hydrocodone 10-325. Patient states this has not helped. States she unable to walk unless using furniture. Patient noted to be moaning and guarding her left leg and knee. History of Present Illness HPI narrative: Patient is a 68-year-old female with chronic lumbar back pain status post multiple surgeries status post TENS unit under chronic pain management at Dr. Ferraro's office who presents emergency department for evaluation of back pain. It is in her same location however is worse than normal. It is left-sided radiating down around her buttock down her left lower extremity. No new trauma. They called her in breakthrough pain doses of hydrocodone acetaminophen for which she has been compliant however due to persistent pain she presents here for continued evaluation. Related Data Home Medications ?Medication ?Instructions ?Recorded ?Confirmed levothyroxine 100 mcg tablet 100 mg PO DAILY hypothyroid 03/11/18 06/01/24 losartan 50 mg tablet 50 mg PO DAILY bp 04/10/20 06/01/24 atorvastatin 10 mg tablet 10 mg PO DAILY Cholesterol 12/29/22 06/01/24 omeprazole 10 mg capsule,delayed 10 mg PO DAILY Cholesterol 12/29/22 06/01/24 release Previous Rx's ?Medication ?Instructions ?Recorded cyclobenzaprine 10 mg tablet 10 mg PO TID PRN cramps #90 tabs 11/28/20 tizanidine 4 mg tablet 4 mg PO HS spasms #30 tabs 04/29/22 ropinirole 0.25 mg tablet 0.25 mg PO DAILY Restless leg #30 12/17/22 tabs tramadol 50 mg tablet 50 mg PO TID . #90 tabs 06/09/23 baclofen 10 mg tablet 10 mg PO HS #30 tabs 02/24/24 diclofenac sodium 75 mg 75 mg PO BID Pain #60 tabs 02/24/24 tablet,delayed release ropinirole 1 mg tablet 1 mg PO HS #30 tabs 05/31/24 gabapentin 300 mg capsule 300 mg PO TID #30 caps 06/01/24 methocarbamol 500 mg tablet 500 mg PO TID #30 tabs 06/01/24 hydrocodone 5 mg-acetaminophen 325 1 tab PO BID #60 tabs 06/02/24 mg tablet lidocaine 5 % topical patch 1 patch topical DAILY back pain 06/04/24 #15 ea Allergies Allergy/AdvReac Type Severity Reaction Status Date / Time No Known Drug Allergies (NO Allergy Unknown Unknown Verified 06/04/24 12:01 KNOWN DRUG ALLERGIES) [facility] Disclaimer: The information contained in this section may have been updated after the patient was seen, as this information can be updated by other users. Medical History Hyperlipidemia Hypertension Thyroid disease Surgical History History of back surgery History of cholecystectomy History of hysterectomy Family History Other No significant family history Social History Smoking Status: Never smoker second hand exposure: No alcohol intake: never substance use type: denies use current occupational status: other Travel in the last 8 weeks: None household members: spouse housing: house current occupation: [employer] current occupational exposures/hazards: No caffeine: Yes Have you lived/traveled outside US in past 30 days?: No Contact w/someone who lives/traveled outside US past 30 days?: No Exposure to someone with infectious disease in past 14 days?: No Do you have a fever (greater than 100.4 F or 38 C)?: No Have you tested positive for COVID-19: No Exposed to someone with COVID-19 in past 14 days?: No Do you have a sore throat?: No Do you have a cough?: No Do you have any weakness?: No Do you have any diarrhea?: No Are you experiencing any unusual bleeding?: No Do you have any muscle aches/pain?: No Do you have any abdominal pain?: No Are you experiencing loss of taste or smell?: No Other Medical History Have you received the Flu Vaccine for this season: No Have you received the Pneumonia Vaccine: No ROS Obtained: Yes Systems reviewed as appropriate & no additional complaints except as documented Physical Exam General General appearance: alert and other (Appearing in pain in bed) Head Head exam: atraumatic and normocephalic Eye Eye exam: Present PERRL ENT ENT exam: Present mucous membranes moist Neck Neck exam: Present normal inspection Chest Chest inspection: Present normal inspection and symmetric chest wall rise Respiratory Respiratory exam: Absent respiratory distress Cardiovascular Cardiovascular exam: Present regular rate and normal rhythm Abdominal Exam Abdominal exam: Present soft Extremities Exam Extremities exam: Present normal inspection and other (No overlying rash, transient 5 out of 5 strength left lower extremity. Palpable dorsal pedal pulse left lower extremity. No edema.) Back Exam Back exam: Present other (No overlying rash, TENS unit palpable midline, no overt midline tenderness. Left-sided paraspinal tenderness present.) Neurological Exam Neurological exam: Present alert and CN II-XII intact Psychiatric Psychiatric exam: Present normal affect Skin Skin exam: Present warm and dry Medical Decision Making Medical Records Screening: Per USPSTF and CDC recommendations, given the prevalence of disease in our region, it is our hospital?s policy to screen for HIV and viral Hepatitis for all patients aged 18 and over and those with ongoing risk factors. Michael Inquiry Pt receiving controlled substance: No Vital Signs: 06/04/24 11:54 06/04/24 12:57 Temperature 98.5 F Temperature Source Oral Pulse Rate 67 Pulse Rate [Radial] 73 Respiratory Rate 20 Blood Pressure 137/72 Blood Pressure [R Arm] 148/71 H Blood Pressure Mean [R Arm] 96 Blood Pressure Source [R Arm] Automatic Cuff Blood Pressure Position [R Arm] Sitting 02 Sat by Pulse Oximetry 99 99 Oxygen Delivery Method Room Air Room Air Orders (Tests/Meds): ED MEDICATIONS Discontinued Medications Generic Name Dose Route Start Last Admin Trade Name Jose Luis PRN Reason Stop Dose Admin Acetaminophen 500 mg 06/04/24 12:19 06/04/24 12:29 Acetaminophen 500mg Tab PO 06/04/24 12:20 500 mg ONCE ONE Administration Ketorolac Tromethamine 60 mg 06/04/24 12:19 06/04/24 12:29 Ketorolac 30mg/Ml Vial IM 06/04/24 12:20 60 mg ONCE ONE Administration Lidocaine 1 each 06/04/24 12:19 06/04/24 12:29 Lidocaine 5% Transdermal Patch TP 06/04/24 12:20 1 each ONCE ONE Administration Methylprednisolone Sodium Succinate 125 mg 06/04/24 12:19 06/04/24 12:29 Methylprednisolone Sod Succ 125mg Vial IM 06/04/24 12:20 125 mg ONCE ONE Administration ORDERS Category Date Time Status Femur XR left 2 views [XR femur LT 2V] Stat Exams 06/04/24 12:24 Ordered Medical Decision Narrative: In summary patient is 68-year-old female past medical history described above presents emergency department for evaluation of back pain. History and physical strongly consistent with sciatica. No overlying skin changes to suggest zoster. No asymmetric swelling to suggest DVT. Bounding left dorsal pedal pulse no concern for arterial ischemia. Given this workup with labs and imaging was considered however will be limited to a single x-ray of the left femur. No red flags to warrant CT imaging of the lumbar spine. Initial inventions include multimodal pain control. Patient will be referred to physical therapy for evaluation on an outpatient basis will continue to follow-up with Dr. Ferraro. X-ray femur informally interpreted by me, no acute displaced fracture. Given this patient is appropriate for outpatient management at this time was given return precautions verbalized understanding. Critical Care Critical Care Time Critical Care Time: No
--- NOTE | 2024-06-04 12:24 | XR_ITS ---
PROCEDURE INFORMATION: Exam: XR Left Femur Exam date and time: 06/04/2024 1:02 PM Age: 68 years old Clinical indication: Pain; Thigh; Left; Unable to tolerate more xray positions; Additional info: Pain no trauma TECHNIQUE: Imaging protocol: Radiologic exam of the left femur. Views: 2 views. COMPARISON: CR XR KNEE LT 3V 11/25/2020 11:02 AM FINDINGS: Bones/joints: The AP view of the femur is normal in appearance without evidence of a fracture. The technologist performing the exam states the patient was unable to tolerate additional views due to pain. Soft tissues: Unremarkable. IMPRESSION: No visible left femur fracture on the single view provided.
[2024-06-04] MEDS: ACETAMINOPHEN 500MG TAB 500 MG PO (12:29)
[2024-06-04] MEDS: METHYLPREDNISOLONE SOD SUCC 125MG VIAL 125 MG IM (12:29)
[2024-06-04] MEDS: LIDOCAINE 5% TRANSDERMAL PATCH 1 EACH TP (12:29)
[2024-06-04] MEDS: KETOROLAC 30MG/ML VIAL 60 MG IM (12:29)
[2024-06-04 12:57] VITALS: BP 137/72; PULSE 67; O2SAT 99
--- NOTE | 2024-06-04 13:02 | PC.NURSE ---
XR AT BEDSIDE
--- NOTE | 2024-06-04 13:12 | HMH.ITSTN ---
pt to xray room, unable to tolerate table; portable to room, pt only able to tolerate position for AP view
[2024-06-04 13:18] VITALS: BP 135/80; PULSE 68; RESP 18; TEMP 36.7; O2SAT 99
== END 2024-06-04 13:19 | disposition home or self-care (01) ==
PROVIDERS: Emergency Provider Emergency Medicine; PCP Family Medicine
DX: M54.32 Sciatica, left side (principal); M54.50 Low back pain, unspecified; M79.662 Pain in left lower leg; G89.29 Other chronic pain
CPT/HCPCS: 73552; 96372; 99283; J1885; J2919

== ENCOUNTER 2024-06-08 11:03 | Outpatient (POV) | payer BC, MEDICARE, SELFPAY ==
[2024-06-08 11:47] LABS: Microscopic, Urine URINE MICROSCOPIC (MICROSCOPIC)
--- NOTE | 2024-06-08 12:03 | EXP.PAIN.SOA ---
[facility] Disclaimer: The information contained in this section may have been updated after the patient was seen, as this information can be updated by other users. Medical History Hyperlipidemia Hypertension Thyroid disease Surgical History History of back surgery History of cholecystectomy History of hysterectomy Family History Other No significant family history Social History Smoking Status: Never smoker second hand exposure: No alcohol intake: never substance use type: denies use current occupational status: other Travel in the last 8 weeks: None household members: spouse housing: house current occupation: [employer] current occupational exposures/hazards: No caffeine: Yes PM Subjective & Objective Subjective Subjective:: Patient is a pleasant 68-year-old female who presents today for severe pain. She does rate her pain at a 10 out of 10. She states that still that same pain she had in our office visits on May 31. Patient states the pain is excruciating and she is not even getting to sleep due to the pain. She states that any little movement aggravates the symptoms. She is complaining of some leg swelling that she had not had in the past. She does also make mention that she has been noticing some burning with urination. Patient states she has not been able to function due to the severity of pain. Patient states she has had to be off work because of this. She is requesting if we can write something up that she can give to her work until we can get her in for injections. Patient has been sent in [place] 5 mg twice a day and is currently on baclofen 10 mg at bedtime from our office. She is also on ropinirole 0.5 mg at bedtime from our office. She denies any side effects however states it just does not seem to be really helping. Her Michael has been reviewed and is appropriate. Review of Systems: General: No recent weight changes, no fever, no sleep disturbances Respiratory: No cough, no shortness of air, no recurring pulmonary infections Cardiovascular/peripheral vascular: No chest pain, no palpitations, no edema, no shortness of breath Gastrointestinal: No new onset incontinence, normal bowel movements reported Genitourinary: No new onset incontinence Musculoskeletal: Low back pain, bilateral hip pain Psychiatric: [Normal mood/affect] Neurological: [Denies weakness in extremities], [denies balance issues] Pain at rest (0-10 scale): 10 Objective Objective:: Physical Exam: General: Alert and oriented x3, no acute distress, pleasant and cooperative Lungs: Respirations even and unlabored, symmetrical chest expansion Eyes: PERRL Musculoskeletal: Flexion and extension of lumbar [spine] somewhat guarded secondary to pain, [antalgic gait noted] point tenderness along bilateral SIs with positive bilateral Andreina's, Dawit's, Gaenslen's, compression and distraction exam Neurological: Speech clear, no gross sensory deficit Has patient had previous pain injection?: No Conservative treatment options previously tried: Home exercise plan Length of treatment: Longer than 12 weeks Meds Home Medications and Allergies Home Medications ?Medication ?Instructions ?Recorded ?Confirmed ?Type levothyroxine 100 mcg tablet 100 mg PO DAILY hypothyroid 03/11/18 06/01/24 History losartan 50 mg tablet 50 mg PO DAILY bp 04/10/20 06/01/24 History cyclobenzaprine 10 mg tablet 10 mg PO TID PRN cramps #90 tabs 11/28/20 06/01/24 Rx tizanidine 4 mg tablet 4 mg PO HS spasms #30 tabs 04/29/22 06/01/24 Rx ropinirole 0.25 mg tablet 0.25 mg PO DAILY Restless leg #30 12/17/22 06/01/24 Rx tabs atorvastatin 10 mg tablet 10 mg PO DAILY Cholesterol 12/29/22 06/01/24 History omeprazole 10 mg capsule,delayed 10 mg PO DAILY Cholesterol 12/29/22 06/01/24 History release tramadol 50 mg tablet 50 mg PO TID . #90 tabs 06/09/23 06/01/24 Rx baclofen 10 mg tablet 10 mg PO HS #30 tabs 02/24/24 06/01/24 Rx diclofenac sodium 75 mg 75 mg PO BID Pain #60 tabs 02/24/24 06/01/24 Rx tablet,delayed release ropinirole 1 mg tablet 1 mg PO HS #30 tabs 05/31/24 06/01/24 Rx gabapentin 300 mg capsule 300 mg PO TID #30 caps 06/01/24 Rx methocarbamol 500 mg tablet 500 mg PO TID #30 tabs 06/01/24 Rx hydrocodone 5 mg-acetaminophen 325 1 tab PO BID #60 tabs 06/02/24 Rx mg tablet lidocaine 5 % topical patch 1 patch topical DAILY back pain 06/04/24 Rx #15 ea New Prescriptions to Start Prescriptions: Allergies Allergy/AdvReac Type Severity Reaction Status Date / Time No Known Drug Allergies (NO Allergy Unknown Unknown Verified 06/04/24 12:01 KNOWN DRUG ALLERGIES) Assessment and Plan *Assessment and plan (1) Bilateral sacroiliitis: Status: Acute Category: Medical Code(s): M46.1 - Sacroiliitis, not elsewhere classified Plan I did discuss with the patient that I will see if we can get her moved up quicker for her injection and that we will put her off until next Wednesday for that injection. I will send in a 7-day dose of prednisone 20 mg twice daily and also send in a refill of the [place] and change it to 3 times a day. Patient due to her complaints of burning with urination is getting ordered a UA to rule out UTI or other kidney related issues. We will follow-up with her once we have the results. Patient agrees with this plan of care. Risks and benefits of the medication have been explained in detail to the patient. The patient does understand the risk of dependence on the medication when given over a prolonged period. Patient has been advised of risks of oversedation with the prescribed medication. Narcan has been offered to the paitent in the event of oversedation. Patient has been advised that a family member should also be educated regarding administration of Narcan. The patient has been advised to consult with his/her primary care provider and pharmacist regarding drug-drug interaction of medications currently prescribed. Patient has been prescribed a controlled substance after being counseled on the medication, medication safety, and possible side effects. Opioid contract was reviewed and signed by the patient, and that they have agreed to all of the terms set forth by our compliance program. A UDS is needed to verify patient's compliance with our office pain contract. This is ordered based off specific treatments related to chronic pain with the potential to abuse certain medications. Patient has been instructed to contact the clinic with any concerns before the next appointment. Dr. Ferraro has reviewed this note and agrees with this plan of care. This note was dictated using voice recognition software and make contain errors or omissions.
[2024-06-08 12:29] LABS: Appearance,Urine CLEAR (Clear); Bilirubin,Urine Negative (Negative); Blood, Urine Negative (Negative); Color,Urine YELLOW (Yellow); Glucose,Urine (UA) Negative (Negative); Ketones,Urine Negative (Negative); Leukocyte Esterase,Urine Negative (Negative); Nitrate,Urine Negative (Negative); Protein,Urine Negative (Negative); Urobilinogen,Urine 0.2 EU/dl (0.2)
[2024-06-08 13:11] LABS: Bacteria,Urine 2+ /lpf; Squamous Epithelial Cell,Urine Occasional #/hpf (0-5); WBC,Urine Occasional #/hpf (0-3)
[2024-06-08 14:28] VITALS: BP 144/81; PULSE 65; RESP 16; O2SAT 99; BMI 31.6
== END 2024-06-08 23:59 | disposition home or self-care (01) ==
LOC: SC.PAIN 11:05 → LAB 11:48
PROVIDERS: PCP Family Medicine; Visit Provider Nurse Practitioner Family
DX: R30.0 Dysuria (principal); N39.0 Urinary tract infection, site not specified; M46.1 Sacroiliitis, not elsewhere classified; Z79.899 Other long term (current) drug therapy
CPT/HCPCS: 81001; 87086; 87088; 87186; 99212; G0463

== ENCOUNTER 2024-06-16 09:00 | Outpatient (RCR) | payer BC, MEDICARE, SELFPAY ==
--- NOTE | 2024-06-08 14:03 | HMH.PTOPEV ---
PT Outpatient Evaluation Rehab PT Outpatient Evaluation Start: 06/08/24 13:28 Freq: Status: Active Protocol: Document 06/08/24 13:28 KYARA (Rec: 06/08/24 14:02 KYARA [id number]) E-signed By Dell Jin, PT Outpatient Therapy Subjective History Subjective History The pt is a 68 yof who is referred to [facility] outpatient with complaint of low back pain that refers into her L LE . She reports that this began approximately 8 days ago, which caused her to seek care at the [facility] ED. She reports that she has had a back pain intermittently for 25 years, however, the current episode is much more severe. She reports that she has been using her husbands walker for the past week when walking around the house. She reports that she is only able to walk a few steps before she is required to stop. She reports that she cannot stand upright, lie on her back, or move in any direction abruptly. Her PMH is remarkable for Hyperlipidemia, Hypertension, Thyroid disease. New diagnosis of cancer in past 12 No months? Chief Complaint Pain Symptom Type Ache,Numbness,Tingling Symptoms Relieved By Heat Symptoms Aggravated By Prone,Supine,Sitting,Standing, Walking Prior Functional Limitations None Current Functional Limitations Lifting,Housework,Driving, Sleeping,Standing,Sitting, Squatting,Walking,Stairs, Balance,Bending/Stooping Symptom Description Constant and Continuous Level of pain today (0-10) 10 Pain scale - at its best (0-10) 10 Pain scale - at its worst (0-10) 10 Lumbopelvic Eval Posture Thoracic Spine Posture Standing Position Increased Kyphosis Lumbar Spine Posture Standing Position Decreased Lordosis Assistive device Assistive Devices None / NA Gait Observation General Gait Pattern Observation Wide Based Gait,Trunk Posterior to ISIDRO Palapation tenderness left lumbar spinal tenderness Yes: 4/4 to L1-L4 paraspinal tenderness Yes: 4/4 to L1-L4 Lumbar/Sacral Palpation Findings Tenderness Accessory Movement L2 bilateral L3 bilateral L4 bilateral Range of Motion Lumbar Spine Active Flexion Range of 40 Motion (degrees) Lumbar Spine Active Extension Range of -10 Motion (degrees) Left Lumbar Spine Lateral Flexion Active 5 Range of Motion (degrees) Right Lumbar Spine Lateral Flexion 5 Active Range of Motion (degrees) Lumbar Spine ROM Limitations Pain Manual Muscle Test Left Knee Extension Strength Grade 3- Fair- Knee Flexion Strength Grade 3- Fair- Hip Flexion Strength Grade 2- Poor- Hip Abduction Strength Grade 2- Poor- Hip Adduction Strength Grade 2- Poor- DTR Rt Patellar 2+ Lt Patellar 2+ Rt Gastroc/Soleus 1+ Lt Gastroc/Soleus 1+ Altered Sensation Left LE Dermatome Level L3,L4 Comment slight hyposensation at L3 L4 dermatome levels Special Tests Lumbar Spine Screen Positive Anterior/Posterior Rib Compression Test Negative Right Sciatic Nerve Tension Test Positive Left Crossed Straight Leg Raise Test Positive Left Oswestry Index Section 1 Pain Intensity The pain is severe and does not vary much Section 2 Personal Care (Washing,Dresing) increase the pain and I find it necessary to change my way of doing it Section 3 Lifting lifting heavy weights off the floor, but I can manage light to medium Section 4 Walking I cannot walk at all without increasing pain Section 5 Sitting Pain prevents me from sitting for more than 1/2 hour Section 6 Standing I cannot stand more than 10 minutes without increasing pain Section 7 Sleeping Pain prevents me from sleeping at all Section 8 Social Life Pain has restricted my social life to my home Section 9 Traveling Pain restricts me to short necessary journeys under 30 minutes Section 10 Changing Degreee of Pain My pain is rapidly getting worse Score and Risk Level Oswestry Sc 42 Oswestry Risk Level Completely Disabled Miscellaneous Dx PT Eval Objective Objective Pt unable to assume supine or prone positioning for lumbar special tests. Will assess as patient is able to. TUs Outpatient Therapy Assessment Impairments Problems/Impairmments Palpation Tenderness,Impaired Range of Motion,Impaired Strength,Impaired Gait Pattern ,Impaired Walking,Impaired Standing,Impaired Sitting, Impaired Driving,Impaired Lifting,Impaired Stair Climbing,Subjective C/O Pain Prognosis Rehab Potential Fair Clinical Impression Consistent with Diagnosis Yes Consistent with LBP with radiating pain Additional details: Pt presents with signs and symptoms consistent with LBP with radiating pain. Pt demonstrates a significant decrement into lumbar extension. Skilled PT is indicated for this pt to address her above impairments, prevent further injury and to promote a return to her prior level of function. Short Term Goals Number of Weeks 4 Decreased Palpation Tenderness Yes: 2-3/4 to lumbar spine Increase Range of Motion Yes: 0 degrees extension Increase Strength Yes: 3/5 to L hip and knees Improve Gait Pattern with Assistive Yes: Upright gait pattern with Device AAD. Increase Ability to Walk Yes: 5 minutes without increasing pain Increase Ability to Stand Yes: 15 minutes without increasing pain Increase Ability to Sit Yes: 30 minutes without increasing pain Improve Oswestry Score Yes: Mod Disability Decrease TUG Time Yes: 24s with AAD Decrease Subjective C/O Pain Yes: 10/03 with above activities Patient to be Ind w/ HEP Yes Ancillary Services Manager Goals Number of Weeks 8 Decreased Palpation Tenderness Yes: 1-2/4 to Lumbar Spine Increase Range of Motion Yes: 10 degrees Lumbar Extension Increase Strength Yes: 4/5 to L hip/knee Improve Gait Pattern without Assistive Yes: Upright walking without Device AD Increase Ability to Walk Yes: 10 minutes without increasing pain Increase Ability to Stand Yes: 30 minutes without increasing pain Increase Ability to Sit Yes: 1 hour without increasing pain Improve Oswestry Score Yes: Mild Disability Decrease TUG Time Yes: 15s with AAD Decrease Subjective C/O Pain Yes: 3-08/03 with above activities Patient to be Ind w/ Advanced HEP Yes Outpatient Therapy Plan of Care Treatment Plan May Include Therapeutic Exercise Including Home Yes Exercise Program Manual Therapy Techniques Yes Neuromuscular Re-education Yes Therapeutic Activities to Return to Yes Previous Functional/Work Level Gait Training Yes ADL/Self Care Education Yes Mechanical Traction Yes Dry Needling Yes Thermal Modalities Yes Electrical Stimulation Yes Ultrasound/Phonophoresis Yes Iontophoresis Yes Manual Lymphatic Drainage Yes Eval/Re-Eval Yes Frequency Times per week 2 Duration Number of Weeks 8 Addendums This patient is a candidate for social No or vocational rehab? Patient/Guardian verbally acknowledges Yes understanding of treatment program and consents to further treatment? Patient/Guardian verbally acknowledges Yes understanding of diagnosis, prognosis and goals for treatment? Eval Complexity PT Charges 23788 - High Complexity Shoulder/Elbow Eval Shoulder Objective Measurements Elbow Objective Measurements PHYSICIAN CERTIFICATION: I certify the specified therapy services for Sarah Monahan are required, authorized, and reviewed every 30 days.
== END 2024-06-16 23:59 | disposition home or self-care (01) ==
LOC: PT 09:00
PROVIDERS: PCP Family Medicine; Visit Provider Emergency Medicine
DX: M54.32 Sciatica, left side (principal)
CPT/HCPCS: 97163

== ENCOUNTER 2024-06-16 13:48 | Day surgery (SDC) | payer BC, MEDICARE, SELFPAY ==
[2024-06-16 14:05] VITALS: BP 163/65; PULSE 74; RESP 16; TEMP 36.8; O2SAT 100; BMI 31.6
--- NOTE | 2024-06-16 14:16 | EXP.PAIN.PRO ---
Procedure Date: 06/16/24 Time: 14:17 Anesthesiologist:: Johnathan Ferraro MD Complications:: None Pre-procedure Diagnosis:: Sacroiliitis Post-procedure Diagnosis:: Same Indications for Procedure:: This patient is a pleasant 68-year-old white female who has increasing pain over both SI joints and down her left leg. She is tender over both SI joints. She has a positive Andreina's test bilaterally. She has positive illnesses bilaterally. She has positive SI joint compression test bilaterally. She has positive distraction test bilaterally. We will plan on bilateral SI joint injections under fluoroscopy today. Procedure Details:: B/L SI joint injection under fluoroscopy Informed consent was obtained and the risks and benefits of the procedure was explained to the patient. The patient was taken to the procedure room and placed prone on the procedure table. The patient was prepped using ChloraPrep. The skin and subcutaneous tissues overlying the SI joints were anesthetized using lidocaine. I placed a 22-gauge needle first in the left SI joint and second in the right SI joint. Needle placement was confirmed with dye. After this we injected 5 mL bupivacaine 0.25% and Depo-Medrol 40 mg into each SI joint. Patient tolerated the procedure well with no complication. Plan and Disposition:: Will follow-up with this patient in 2 weeks. Will evaluate efficacy of these injections. Will reevaluate symptoms at that time. In the meantime given the acuteness of her pain we will give her prednisone 20 mg twice a day for 5 days and also order a Doppler ultrasound of lower extremity to rule out DVT. I did tell her to contact her primary care provider to rule out other causes of her pain and she also does have some swelling in her left lower extremity.
[2024-06-16] MEDS: IOPAMIDOL-200 (41%);10ML VIAL 10 ML IV (14:19)
[2024-06-16 14:32] VITALS: BP 151/72; PULSE 71; RESP 16; O2SAT 100
[2024-06-16] MEDS: methylPREDNISolone ACETATE 80MG/ML VIAL 80 MG (15:39)
[2024-06-16] MEDS: LIDOCAINE 1% 5ML PF VIAL 10 ML (15:40)
[2024-06-16] MEDS: BUPIVACAINE 0.25% 10ML INJ 25 MG IJ (15:41)
== END 2024-06-16 14:32 | disposition home or self-care (01) ==
PROVIDERS: PCP Family Medicine; Visit Provider Anesthesiology
DX: M46.1 Sacroiliitis, not elsewhere classified (principal); M79.89 Other specified soft tissue disorders
CPT/HCPCS: 27096; G0260; J1010; Q9966

== ENCOUNTER 2024-06-22 10:08 | Outpatient (POV) | payer BC, MEDICARE, SELFPAY ==
[2024-06-22 10:20] VITALS: BP 143/81; PULSE 61; RESP 14; O2SAT 99
--- NOTE | 2024-06-22 10:49 | A.OFFVIS_ITS ---
[facility] Disclaimer: The information contained in this section may have been updated after the patient was seen, as this information can be updated by other users. 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 Today she rates her pain a 9 out of 10. Patient denies any new injury or trauma. Patient is presenting today being able to walk into our clinic office compared to last week where she has been in a wheelchair the last few weeks due to worsening pain. She does state that she did have improvement following these injections and really felt like it did take the edge off. Patient states that she is not having any pain overall in the right side however the left side she is stating that it definitely took the edge off however she still having significant pain. She states that she feels like currently she is getting about 40% relief. Patient has been off work due to the worsening symptoms. Patient was ordered an ultrasound to rule out possible DVT along the left leg however states she has not heard anything updated about this. Patient does also have a spinal cord stimulator in place and states that about 3 weeks ago she had an adjustment and it was working well up until this pain started. Patient is currently being managed with baclofen 10 mg 3 times daily, diclofenac 75 mg twice daily, ropinirole 1 mg at bedtime, gabapentin 300 mg 3 times daily and [place] 5 mg 3 times daily from our office. Patient has also been tried on lidocaine patches. Her Michael has been reviewed and is appropriate. Review of Systems: General: No recent weight changes, no fever, no sleep disturbances Respiratory: No cough, no shortness of air, no recurring pulmonary infections Cardiovascular/peripheral vascular: No chest pain, no palpitations, no edema, no shortness of breath Gastrointestinal: No new onset incontinence, normal bowel movements reported Genitourinary: No new onset incontinence Musculoskeletal: Low back pain, left leg pain Psychiatric: [Normal mood/affect] Neurological: [Denies weakness in extremities], [denies balance issues] Pain at rest (0-10 scale): 9 Objective Objective:: Physical Exam: General: Alert and oriented x3, no acute distress, pleasant and cooperative Lungs: Respirations even and unlabored, symmetrical chest expansion Eyes: PERRL Musculoskeletal: Flexion and extension of lumbar [spine] somewhat guarded secondary to pain, [antalgic gait noted] Neurological: Speech clear, no gross sensory deficit Has patient had previous pain injection?: Yes Percent improvement in pain since last injection: Moderate, ongoing 40% relief on the left side Conservative treatment options previously tried: Home exercise plan Length of treatment: Longer than 12 weeks Meds Home Medications and Allergies Home Medications ?Medication ?Instructions ?Recorded ?Confirmed ?Type levothyroxine 100 mcg tablet 100 mg PO DAILY hypothyroid 03/11/18 06/22/24 History losartan 50 mg tablet 50 mg PO DAILY bp 04/10/20 06/22/24 History cyclobenzaprine 10 mg tablet 10 mg PO TID PRN cramps #90 tabs 11/28/20 06/22/24 Rx tizanidine 4 mg tablet 4 mg PO HS spasms #30 tabs 04/29/22 06/22/24 Rx ropinirole 0.25 mg tablet 0.25 mg PO DAILY Restless leg #30 12/17/22 06/22/24 Rx tabs atorvastatin 10 mg tablet 10 mg PO DAILY Cholesterol 12/29/22 06/22/24 History omeprazole 10 mg capsule,delayed 10 mg PO DAILY Cholesterol 12/29/22 06/22/24 History release tramadol 50 mg tablet 50 mg PO TID . #90 tabs 06/09/23 06/22/24 Rx ropinirole 1 mg tablet 1 mg PO HS #30 tabs 05/31/24 06/22/24 Rx methocarbamol 500 mg tablet 500 mg PO TID #30 tabs 06/01/24 06/22/24 Rx lidocaine 5 % topical patch 1 patch topical DAILY back pain 06/04/24 06/22/24 Rx #15 ea baclofen 10 mg tablet 10 mg PO TID #90 tabs 06/08/24 06/22/24 Rx hydrocodone 5 mg-acetaminophen 325 1 tab PO TID #90 tabs 06/08/24 06/22/24 Rx mg tablet prednisone 20 mg tablet 20 mg PO BID #14 tabs 06/08/24 06/22/24 Rx diclofenac sodium 75 mg 75 mg PO BID Pain #60 tabs 06/09/24 06/22/24 Rx tablet,delayed release gabapentin 300 mg capsule 300 mg PO TID #90 caps 06/09/24 06/22/24 Rx ciprofloxacin HCl 500 mg tablet 500 mg PO DAILY #3 tabs 06/12/24 06/22/24 Rx New Prescriptions to Start Prescriptions: Allergies Allergy/AdvReac Type Severity Reaction Status Date / Time No Known Drug Allergies (NO Allergy Unknown Unknown Verified 06/04/24 12:01 KNOWN DRUG ALLERGIES) Assessment and Plan *Assessment and plan (1) Sciatica: Status: Acute Category: Medical Code(s): M54.30 - Sciatica, unspecified side (2) Bilateral sacroiliitis: Status: Acute Category: Medical Code(s): M46.1 - Sacroiliitis, not elsewhere classified (3) Lumbar back pain: Status: Acute Category: Medical Code(s): M54.50 - Low back pain, unspecified Plan Patient did have improvement with no ongoing pain along the right side however still continues to have severe pain along her low back left-sided that does go down to her left knee. Patient is scheduled for her ultrasound to rule out DVT on June 26. I did insurance counselor her that I will also order a CT of her lumbar spine. Patient did give our office paperwork for her work requesting to be off. We did insurance counselor her that we will have her off for another week until we rule out DVT or herniated disc. Patient was counseled that we do not fill out any short-term disability or long-term disability paperwork unless the patient has had surgery with our office. I have recommended that she follow-up with primary care regarding this. Patient will return to clinic in 1 week following testing. Patient has been instructed to contact the clinic with any concerns before the next appointment. Dr. Ferraro has reviewed this note and agrees with this plan of care. This note was dictated using voice recognition software and make contain errors or omissions. All injections are used with Lidocaine, Bupivacaine and Depo Medrol. Occasionally urine drug screen is needed to verify patient's compliance with our office pain contract. This is ordered based off specific treatments related to chronic pain with the potential to abuse certain medications.
== END 2024-06-22 23:59 | disposition home or self-care (01) ==
LOC: SC.PAIN 10:11
PROVIDERS: PCP Family Medicine; Visit Provider Nurse Practitioner Family
DX: M54.30 Sciatica, unspecified side (principal); M46.1 Sacroiliitis, not elsewhere classified; M54.50 Low back pain, unspecified
CPT/HCPCS: 99212; G0463

== ENCOUNTER 2024-06-26 13:01 | Outpatient (CLI) | payer BC, MEDICARE, SELFPAY ==
--- NOTE | 2024-06-26 13:04 | CA_ITS ---
FINAL REPORT TECHNIQUE: Ultrasound images of the deep venous system were obtained from the left groin to the calf veins. CLINICAL HISTORY: Pain and numbness in LLE x 1 month, started at the same time as severe back pain. FINDINGS: The deep venous system is normally compressible. Normal flow is identified. IMPRESSION: No evidence of left lower extremity DVT. Reviewed, Interpreted and Dictated by Irma Waddell MD Transcribed by Yvonne Raymond Authenticated and [facility]
== END 2024-06-26 23:59 | disposition home or self-care (01) ==
LOC: RT 13:02
PROVIDERS: PCP Family Medicine; Visit Provider Anesthesiology
DX: M79.89 Other specified soft tissue disorders (principal); M79.605 Pain in left leg
CPT/HCPCS: 93971

== ENCOUNTER 2024-06-29 10:03 | Outpatient (POV) | payer BC, MEDICARE, SELFPAY ==
--- NOTE | 2024-06-29 10:59 | EXP.PAIN.SOA ---
[facility] Disclaimer: The information contained in this section may have been updated after the patient was seen, as this information can be updated by other users. Medical History Hyperlipidemia Hypertension Thyroid disease Surgical History History of back surgery History of cholecystectomy History of hysterectomy Family History Other No significant family history Social History Smoking Status: Never smoker second hand exposure: No alcohol intake: never substance use type: denies use current occupational status: other Travel in the last 8 weeks: None household members: spouse housing: house current occupation: [employer] current occupational exposures/hazards: No caffeine: Yes PM Subjective & Objective Subjective Subjective:: Patient is a pleasant 58-year-old female who presents today for CT denial. Today she rates her pain a 4 out of 10. She denies any new trauma or injury. She states she still is experiencing pretty significant pain more prominent in her low back and radiating down the left leg to about her knee. Patient states that it is fairly constant and that she is still having trouble with certain movements. She states that she cannot stand fully due to the worsening pain and feels like that the left leg frequently wants to give out and she is worried about falling. Patient did have SI injections back in May that did help. Her most recent ultrasound to rule out DVT in the left extremity was negative. Patient is currently managed with baclofen 10 mg 3 times a day, diclofenac 75 mg twice a day, ropinirole 1 mg at bedtime, gabapentin 300 mg 3 times a day and Ida 5 mg 3 times a day. She has tried lidocaine patches. Her Michael has been reviewed and is appropriate. Review of Systems: General: No recent weight changes, no fever, no sleep disturbances Respiratory: No cough, no shortness of air, no recurring pulmonary infections Cardiovascular/peripheral vascular: No chest pain, no palpitations, no edema, no shortness of breath Gastrointestinal: No new onset incontinence, normal bowel movements reported Genitourinary: No new onset incontinence Musculoskeletal: Low back pain, left leg pain Psychiatric: [Normal mood/affect] Neurological: [Denies weakness in extremities], [denies balance issues] Pain at rest (0-10 scale): 4 Objective Objective:: Physical Exam: General: Alert and oriented x3, no acute distress, pleasant and cooperative Lungs: Respirations even and unlabored, symmetrical chest expansion Eyes: PERRL Musculoskeletal: Flexion and extension of lumbar [spine] somewhat guarded secondary to pain, [antalgic gait noted] Neurological: Speech clear, no gross sensory deficit Has patient had previous pain injection?: No Conservative treatment options previously tried: Home exercise plan Length of treatment: Longer than 12 weeks Meds Home Medications and Allergies Home Medications ?Medication ?Instructions ?Recorded ?Confirmed ?Type levothyroxine 100 mcg tablet 100 mg PO DAILY hypothyroid 03/11/18 06/22/24 History losartan 50 mg tablet 50 mg PO DAILY bp 04/10/20 06/22/24 History cyclobenzaprine 10 mg tablet 10 mg PO TID PRN cramps #90 tabs 11/28/20 06/22/24 Rx tizanidine 4 mg tablet 4 mg PO HS spasms #30 tabs 04/29/22 06/22/24 Rx ropinirole 0.25 mg tablet 0.25 mg PO DAILY Restless leg #30 12/17/22 06/22/24 Rx tabs atorvastatin 10 mg tablet 10 mg PO DAILY Cholesterol 12/29/22 06/22/24 History omeprazole 10 mg capsule,delayed 10 mg PO DAILY Cholesterol 12/29/22 06/22/24 History release tramadol 50 mg tablet 50 mg PO TID . #90 tabs 06/09/23 06/22/24 Rx ropinirole 1 mg tablet 1 mg PO HS #30 tabs 05/31/24 06/22/24 Rx methocarbamol 500 mg tablet 500 mg PO TID #30 tabs 06/01/24 06/22/24 Rx lidocaine 5 % topical patch 1 patch topical DAILY back pain 06/04/24 06/22/24 Rx #15 ea prednisone 20 mg tablet 20 mg PO BID #14 tabs 06/08/24 06/22/24 Rx diclofenac sodium 75 mg 75 mg PO BID Pain #60 tabs 06/09/24 06/22/24 Rx tablet,delayed release ciprofloxacin HCl 500 mg tablet 500 mg PO DAILY #3 tabs 06/12/24 06/22/24 Rx baclofen 10 mg tablet 10 mg PO TID #90 tabs 06/29/24 Rx gabapentin 300 mg capsule 300 mg PO TID #90 caps 06/29/24 Rx hydrocodone 5 mg-acetaminophen 325 1 tab PO TID #90 tabs 06/29/24 Rx mg tablet New Prescriptions to Start Prescriptions: baclofen Felder,Rupal A gabapentin Felder,Rupal A hydrocodone-acetaminophen Felder,Rupal A Allergies Allergy/AdvReac Type Severity Reaction Status Date / Time No Known Drug Allergies (NO Allergy Unknown Unknown Verified 06/04/24 12:01 KNOWN DRUG ALLERGIES) Assessment and Plan *Assessment and plan (1) Lumbar radiculopathy: Status: Acute Category: Medical Code(s): M54.16 - Radiculopathy, lumbar region (2) Lumbar back pain: Status: Acute Category: Medical Code(s): M54.50 - Low back pain, unspecified (3) Sciatica: Status: Acute Category: Medical Code(s): M54.30 - Sciatica, unspecified side Plan Patient continues to experience significant pain throughout her low back and radiating down her left extremity. I will order physical therapy for this pain and follow-up with her in 1 month. I will refill her medications and provide a 1 month supply of these medications. We will be still proceeding forward with ordering advanced imaging after she has started physical therapy. Patient will return to clinic in 1 month. Risks and benefits of the medication have been explained in detail to the patient. The patient does understand the risk of dependence on the medication when given over a prolonged period. Patient has been advised of risks of oversedation with the prescribed medication. Narcan has been offered to the paitent in the event of oversedation. Patient has been advised that a family member should also be educated regarding administration of Narcan. The patient has been advised to consult with his/her primary care provider and pharmacist regarding drug-drug interaction of medications currently prescribed. Patient has been prescribed a controlled substance after being counseled on the medication, medication safety, and possible side effects. Opioid contract was reviewed and signed by the patient, and that they have agreed to all of the terms set forth by our compliance program. A UDS is needed to verify patient's compliance with our office pain contract. This is ordered based off specific treatments related to chronic pain with the potential to abuse certain medications. Patient has been instructed to contact the clinic with any concerns before the next appointment. Dr. Ferraro has reviewed this note and agrees with this plan of care. This note was dictated using voice recognition software and make contain errors or omissions.
[2024-06-29 11:47] VITALS: BP 131/78; PULSE 87; RESP 14; O2SAT 96; BMI 31.6
[2024-06-29 11:52] VITALS: BP 131/78; PULSE 87; RESP 14; O2SAT 96; BMI 31.6
== END 2024-06-29 23:59 | disposition home or self-care (01) ==
PROVIDERS: PCP Family Medicine; Visit Provider Nurse Practitioner Family
DX: M54.16 Radiculopathy, lumbar region (principal); M54.40 Lumbago with sciatica, unspecified side
CPT/HCPCS: 99212; G0463

== ENCOUNTER 2024-07-17 08:00 | Outpatient (RCR) | payer BC, MEDICARE, SELFPAY | END 2024-07-17 23:59 | disposition home or self-care (01) | LOC: PT 08:00 | PROVIDERS: Visit Provider Emergency Medicine | DX: M54.30 Sciatica, unspecified side (principal) | CPT/HCPCS: 97110; 97164 ==

== ENCOUNTER 2024-07-28 08:00 | Outpatient (RCR) | payer BC, MEDICARE, SELFPAY | END 2024-07-28 23:59 | disposition home or self-care (01) | LOC: PT 08:00 | PROVIDERS: Visit Provider Emergency Medicine | DX: M54.16 Radiculopathy, lumbar region (principal); M46.1 Sacroiliitis, not elsewhere classified; M54.50 Low back pain, unspecified | CPT/HCPCS: 97110 ==

== ENCOUNTER 2024-07-28 13:02 | Outpatient (POV) | payer BC, MEDICARE, SELFPAY ==
--- NOTE | 2024-07-28 13:12 | EXP.PAIN.SOA ---
[facility] Disclaimer: The information contained in this section may have been updated after the patient was seen, as this information can be updated by other users. Medical History Hyperlipidemia Hypertension Thyroid disease Surgical History History of back surgery History of cholecystectomy History of hysterectomy Family History Other No significant family history Social History Smoking Status: Never smoker second hand exposure: No alcohol intake: never substance use type: denies use current occupational status: other Travel in the last 8 weeks: None household members: spouse housing: house current occupation: [employer] current occupational exposures/hazards: No caffeine: Yes PM Subjective & Objective Subjective Subjective:: Patient is a pleasant 68-year-old female who presents today for follow-up. Today she rates her pain a 5 out of 10. Patient denies any new trauma or injury. She does states she is still having that chronic pain that is primarily affecting her left lower leg. She states it does go on the inner thigh and then along the lateral lower calf. She states the pain is constant and is interfering with her ability perform activities of daily living such as cooking and cleaning. Patient has been going to physical therapy however this is aggravating her symptoms and making it worse. Patient states that she has not noticed any additional improvement. Patient was previously submitted for a CT however was denied by insurance for not having recent physical therapy. Patient has continued oral medications, heat and ice, topicals, at home stretching exercise that was physician guided now for longer than 6 weeks.Patient is currently managed with baclofen 10 mg 3 times a day, diclofenac 75 mg twice a day, ropinirole 1 mg at bedtime, gabapentin 300 mg 3 times a day and Kincaid 5 mg 3 times a day. Review of Systems: General: No recent weight changes, no fever, no sleep disturbances Respiratory: No cough, no shortness of air, no recurring pulmonary infections Cardiovascular/peripheral vascular: No chest pain, no palpitations, no edema, no shortness of breath Gastrointestinal: No new onset incontinence, normal bowel movements reported Genitourinary: No new onset incontinence Musculoskeletal: Low back pain Psychiatric: [Normal mood/affect] Neurological: [Denies weakness in extremities], [denies balance issues] Pain at rest (0-10 scale): 5 Objective Objective:: Physical Exam: General: Alert and oriented x3, no acute distress, pleasant and cooperative Lungs: Respirations even and unlabored, symmetrical chest expansion Eyes: PERRL Musculoskeletal: Flexion and extension of lumbar [spine] somewhat guarded secondary to pain, [antalgic gait noted] Neurological: Speech clear, no gross sensory deficit Has patient had previous pain injection?: No Conservative treatment options previously tried: Home exercise plan Length of treatment: Longer than 12 weeks and Physical Therapy Length of treatment: Ongoing Meds Home Medications and Allergies Home Medications ?Medication ?Instructions ?Recorded ?Confirmed ?Type levothyroxine 100 mcg tablet 100 mg PO DAILY hypothyroid 03/11/18 07/28/24 History losartan 50 mg tablet 50 mg PO DAILY bp 04/10/20 07/28/24 History cyclobenzaprine 10 mg tablet 10 mg PO TID PRN cramps #90 tabs 11/28/20 07/28/24 Rx tizanidine 4 mg tablet 4 mg PO HS spasms #30 tabs 04/29/22 07/28/24 Rx ropinirole 0.25 mg tablet 0.25 mg PO DAILY Restless leg #30 12/17/22 07/28/24 Rx tabs atorvastatin 10 mg tablet 10 mg PO DAILY Cholesterol 12/29/22 07/28/24 History omeprazole 10 mg capsule,delayed 10 mg PO DAILY Cholesterol 12/29/22 07/28/24 History release tramadol 50 mg tablet 50 mg PO TID . #90 tabs 06/09/23 07/28/24 Rx methocarbamol 500 mg tablet 500 mg PO TID #30 tabs 06/01/24 07/28/24 Rx lidocaine 5 % topical patch 1 patch topical DAILY back pain 06/04/24 07/28/24 Rx #15 ea prednisone 20 mg tablet 20 mg PO BID #14 tabs 06/08/24 07/28/24 Rx diclofenac sodium 75 mg 75 mg PO BID Pain #60 tabs 06/09/24 07/28/24 Rx tablet,delayed release ciprofloxacin HCl 500 mg tablet 500 mg PO DAILY #3 tabs 06/12/24 07/28/24 Rx baclofen 10 mg tablet 10 mg PO TID #90 tabs 06/29/24 07/28/24 Rx gabapentin 300 mg capsule 300 mg PO TID #90 caps 06/29/24 07/28/24 Rx hydrocodone 5 mg-acetaminophen 325 1 tab PO TID #90 tabs 06/29/24 07/28/24 Rx mg tablet ropinirole 1 mg tablet See Rx Instructions .Route 07/06/24 07/28/24 Rx .COMPLEX #30 tabs New Prescriptions to Start Prescriptions: Allergies Allergy/AdvReac Type Severity Reaction Status Date / Time No Known Drug Allergies (NO Allergy Unknown Unknown Verified 06/04/24 12:01 KNOWN DRUG ALLERGIES) Assessment and Plan *Assessment and plan (1) Lumbar back pain: Status: Acute Category: Medical Code(s): M54.50 - Low back pain, unspecified (2) Lumbar radiculopathy: Status: Acute Category: Medical Code(s): M54.16 - Radiculopathy, lumbar region Plan We will resubmit for the CT of her lumbar spine as she has been doing physical therapy for several weeks with no additional improvement. The physical therapy is making her symptoms worse. Patient was also counseled that I do believe she would most likely benefit from a lumbar epidural. We will follow-up with this in future. I will make sure that she does have refills on her pain medicine, baclofen, diclofenac and ropinirole. Patient did state that she can no longer tolerate the gabapentin that it was causing her to feel very loopy to where she could not function and was actually having significant nightmares. Patient will return to clinic in 1 month for reevaluation of symptoms and plan of care. Risks and benefits of the medication have been explained in detail to the patient. The patient does understand the risk of dependence on the medication when given over a prolonged period. Patient has been advised of risks of oversedation with the prescribed medication. Narcan has been offered to the paitent in the event of oversedation. Patient has been advised that a family member should also be educated regarding administration of Narcan. The patient has been advised to consult with his/her primary care provider and pharmacist regarding drug-drug interaction of medications currently prescribed. Patient has been prescribed a controlled substance after being counseled on the medication, medication safety, and possible side effects. Opioid contract was reviewed and signed by the patient, and that they have agreed to all of the terms set forth by our compliance program. A UDS is needed to verify patient's compliance with our office pain contract. This is ordered based off specific treatments related to chronic pain with the potential to abuse certain medications. Patient has been instructed to contact the clinic with any concerns before the next appointment. Dr. Ferraro has reviewed this note and agrees with this plan of care. This note was dictated using voice recognition software and make contain errors or omissions.
[2024-07-28 13:40] VITALS: BP 154/72; BP 154/79; PULSE 64; RESP 16; O2SAT 100; BMI 31.6
== END 2024-07-28 23:59 | disposition home or self-care (01) ==
PROVIDERS: PCP Family Medicine; Visit Provider Nurse Practitioner Family
DX: M54.50 Low back pain, unspecified (principal); M54.16 Radiculopathy, lumbar region; Z73.89 Other problems related to life management difficulty
CPT/HCPCS: 99212; G0463

== ENCOUNTER 2024-08-15 10:33 | Outpatient (CLI) | payer BC, MEDICARE, SELFPAY ==
--- NOTE | 2024-08-15 | CT_ITS ---
FINAL REPORT TECHNIQUE: Axial imaging of the lumbar spine was obtained without contrast. Reformatted images were also obtained and reviewed.This study was performed with techniques to keep radiation doses as low as reasonably achievable, (ALARA). Individualized dose reduction techniques using automated exposure control or adjustment of mA and/or kV according to the patient's size were employed. CLINICAL HISTORY: LBP W/ BLE LEFT LEG WORSE PER PATIENT FINDINGS: There is no acute fracture or subluxation. The vertebra are normal height. There is no malalignment. Advanced disc space narrowing seen at L4-5 and L5-S1. Facets are properly aligned. Prevertebral soft tissues unremarkable. There is a similar device in place with leads entering the spinal canal at the L1-2 level. T12-L1: Posterior osteophyte eccentric to the right with moderate right canal stenosis. L1-2: Unremarkable. L2-3: Mild diffuse disc bulge with mild bilateral neuroforaminal narrowing. L3-4: Mild to moderate diffuse disc bulge with moderate central canal stenosis. There is mild right and moderate left neuroforaminal narrowing. L4-5: Moderate diffuse disc bulge with endplate hypertrophy and bilateral facet hypertrophy. There is a left laminectomy defect with moderate to high-grade bilateral neuroforaminal narrowing. L5-S1: Unusual calcification seen in the left lateral recess posterior to L5/S1 which extends superior to the disc space. There is moderate compromise of the left lateral recess. This could be related to calcified extruded disc. There is posterior laminectomy defect. Findings are best seen on image 80 of series 3. IMPRESSION: No acute bony abnormality. Abnormal attenuation in the left lateral recess at L5-S1 which may be related to calcified extruded disc. Recommend clinical correlation. Bilateral neuroforaminal narrowing due to endplate hypertrophy at L4-5 with left laminectomy defect. Reviewed, Interpreted and Dictated by Lencho Whittaker MD Transcribed by Yvonne Raymond Authenticated and [facility]
--- OUTSIDE RECORDS SUMMARY | 2024-08-15 10:35 | XMS_ITS | Clinical Summary ---
Author Organization [facility] , [facility] Address [address] [place] [address] Phone Care Team Providers Care Bean Sorter Name Role Phone Siobhan LÓPEZ, Jorge Unavailable [phone] Reason for Visit and Chief Complaint The Chief Complaint is: LOW BACK/HIPS/KNEES Problems Includes: Problems addressed during this encounter and other active Problems Current Visit Onset Date Resolved Date Provider Gerri rae Status Lower Back Pain 06/28/2023 DARSHAN HERNANDEZ PA-C Active Last Documented On 4 10:27AM ; [facility] Plan of Treatment Fall Risk Assessment: This patient has been identified as a fall risk. Balance/gait along with postural blood pressure, vision and home fall hazards have been assessed. Medications have been reviewed, and recommendations made with regard to contributing factors for future falls. Plan of care: Consideration of vitamin D supplementation along with balance and strength training with consideration for formal physical therapy has been discussed with the patient. - Last Documented On 06/28/2023 11:24AM ; [facility], [facility] I will arrange for a CT myelogram of the lumbar spine to assess this further. She states that the stimulator that she has is not MRI compatible. She will return back to see us for further assessment and treatment. If it shows that she is quite stenotic then she may require surgical decompression to help treat her symptoms. - Last Documented On 06/28/2023 11:24AM ; [facility] Pending Tests Order Diagnosis Results Due Ordering Franklyn landers Radiology - CT/Myelogram Lumbar Low back pain, unspecified 06/28/23 DARSHAN HERNANDEZ PA-C Last Documented On 4 11:09AM ; [facility], [facility] Instructions to patient Lose weight Last Documented On 4 10:35AM ; [facility], [facility] Assessments Includes: Assessments from this encounter Findings - Overweight - Last Documented On 06/28/2023 11:24AM ; [facility] 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 This appears to have not responded to injections in her spinal cord stimulator. - Last Documented On 06/28/2023 11:24AM ; [facility], [facility] Instructions Includes: Instructions from this encounter Instructions to patient Lose weight Last Documented On 4 10:35AM ; [facility] Medical Equipment - Implanted Devices Includes: Current Devices No Medical Equipment Recorded Medications Includes: Medications discussed during this encounter and other current Medications Current Medications (continue as prescribed) Diclofenac Sodium 75 MG Oral Tablet, enteric coated Provider: Diagnosis: Last Documented On 4 10:28AM By Lora Michele ; [facility], [facility] Losartan Potassium-HCTZ 50-12.5 MG Oral Tablet 023 Provider: RIZWANA DELGADO Diagnosis: Last Documented On 4 10:28AM By Lora Michele ; [facility] Levothyroxine Sodium 100 MCG Oral Tablet 10/02/2022 Provider: Diagnosis: Last Documented On 4 10:28AM By Lora Michele ; [facility] traMADol HCl 50 MG Oral Tablet 08/10/2022 Provider: RE FERRARO MD Diagnosis: Last Documented On 4 10:28AM By Lora Michele ; [facility], [facility] Medications Administered Includes: Administered Medications from this encounter No Administered Medications Recorded Vital Signs Includes: Vital Signs from this encounter Vital Name 06/28/2023 10:28A Height (in) 65 Weight (lb) 190 Body Mass Index 31.6 Body Surface Area 1.9 Note: PW Last Documented: On 06/28/2023 10:29A M ; [facility], [facility] Results Includes: Results discussed during this encounter No Results Recorded For Specified Dates History of Present Illness Includes: History of Present Illness from this encounter BO Monahan is a 67 year old female. - Symptoms CATCHING, GIVING AWAY, GRINFING, LOCKING BETTER REST WORSE WALKING STANDING SITTING. - Allergy list reviewed - Problem list reviewed - Medication list reviewed - Previous history of new onset pain Injury is not work related or an automotive accident - Patient pain level from 1-10: 8 - History of Injections Medications used for this condition: Patient presents today upon referral from regarding ongoing lower back pain with hip and leg pain numbness tingling weakness. She has a long history of back problems. She has had previous surgery on her back was sounds like laminectomy is performed at a couple of different levels over the past decade or so. Patient did okay with this. Because having ongoing symptoms. She has been a patient of Dr. Ferraro for last few years. He has placed a spinal cord stimulator for. And more recently has done injections. These sound like she has had facet and epidural injections to try to treat her symptoms. She did not have any long-term benefit with this especially of late. Patient has had a CT scan done recently and has been referred here for further assessment and treatment. She does state that the spinal cord stimulator does help him. But she is still having a lot of discomfort across the lumbosacral area and into the hips in the legs. This seems to follow mainly an L4 and L5 pattern. Social History Description Last Updated Tobacco non-user 06/28/2023 Last Documented On 4 11:24AM ; [facility], [facility] Caffeine use 06/28/2023 Last Documented On 4 11:24AM ; [facility], [facility] No recent change in diet 06/28/2023 Last Documented On 4 11:24AM ; [facility], [facility] Not a current smoker. 06/28/2023 Last Documented On 4 11:24AM ; [facility], [facility] Not exercising regularly 06/28/2023 Last Documented On 4 11:24AM ; [facility], [facility] Not using alcohol 06/28/2023 Last Documented On 4 11:24AM ; [facility], [facility] Not using drugs 06/28/2023 Last Documented On 4 11:24AM ; [facility], [facility] Smoking Status Unknown Procedures and Surgical History Includes: Procedures from this encounter Procedures Code Diagnosis Performing Provider Service L ocation Service Date use of tobacco assessment performed 1000F Last Documented On 4 10:35AM ; [facility], [facility] patient screened for future fall risk: documentation of any fall with injury in past year 1100F Last Documented On 4 10:35AM ; [facility] an X-ray was performed 66839 Last Documented On 4 10:32AM ; [facility] CT scan [address] Last Documented On 4 10:32AM ; [facility], [facility] Surgical History Last Updated History of back surgery 06/28/2023 Last Documented On 4 11:24AM ; [facility] History of History of Gallbladder 2023 Last Documented On 4 11:24AM ; [facility] History of hysterectomy 06/28/2023 Last Documented On 4 11:24AM ; [facility] Medical History Includes: Medical History addressed during this encounter Description Last Updated History of arthritis 06/28/2023 Last Documented On 4 11:24AM ; [facility] History of Hypertension 06/28/2023 Last Documented On 4 11:24AM ; [facility] History of Thyroid Disease 06/28/2023 Last Documented On 4 11:24AM ; [facility] Family History Includes: Family History addressed during this encounter Description Last Updated Family history of cancer 06/28/2023 Last Documented On 4 11:24AM ; [facility] Family history of heart disease 06/28/19 Last Documented On 4 11:24AM ; [facility] Family history of systemic hypertension 06/28/2023 Last Documented On 4 11:24AM ; [facility], [facility] Review of Systems Includes: Review of Systems from this encounter Systemic: Feeling tired. No recent weight loss and no recent weight gain. Head: No headache and no sinus pain. Eyes: No vision problems. Cataracts and Glasses/Contacts. No Glaucoma. Otolaryngeal: No hearing loss and no tinnitus. Cardiovascular: No chest pain or discomfort and no palpitations. Hypertension and High Cholesterol. Pulmonary: No daytime asthma symptoms. Chronic cough. No wheezing. Gastrointestinal: No heartburn and no abdominal pain. No Indigestion, no Acid Reflux, no Peptic Ulcer, no GI Stomach Bleed, and no Ulcers. Endocrine: Hot flashes and muscle weakness. No Diabetes. Hypothyroid. No Hyperthyroid. Hematologic: No easy bleeding, no tendency for easy bruising, and no Anemia. Musculoskeletal: Arthritis and lower back pain. No soft tissue swelling. Pain localized to one or more joints. Neurological: No dizziness, no convulsions, and no numbness. Psychological: No anxiety, no emotional lability, and no depression. Insomnia. Not crying for no reason. Skin: No dry skin. No Ulcers, no Scars, and no rash. Allergic and Immunologic: No complaint of seasonal allergic reaction. Mental Status Includes: Mental Status from this encounter Description No anxiety Functional Status Includes: Functional Status from this encounter No Functional Status Recorded Physical Exam Includes: Physical Exam from this encounter Allergies Includes: Active Allergies No Known Allergies Encounters Encounter Provider Location Date Check-In Time Check-Out Time Diagnosis Physician Specified DARSHAN HERNANDEZ PA-C [facility] 06/28/19 24 10:13AM 10:47AM Overweight Insurance Includes: Active Insurance Policies Plan Name Member ID Group # Subscriber Relationship Effect jose r Dates 1 - [facility] [id number] Sarah Monahan Self 2 - Medicare Part B [facility] [id number] Sarah Monahan Self 3 - [facility] [employer] [id number] Sarah Monahan Self Clinical Notes Includes: Clinical Notes from this encounter * Progress note Date Encounter Last Documented by 06/28/2023 Physician Specified Last documen mejia on 06/28/2023; 11:24 AM, DARSHAN HERNANDEZ PA-C; [facility] Active Problems & Conditions - Lower Back Pain Chief Complaint The Chief Complaint is: LOW BACK/HIPS/KNEES. Referred Here Referred by DANYEL. History of Present Illness Sarah Monahan is a 67 year old female. - Symptoms CATCHING, GIVING AWAY, GRINFING, LOCKING BETTER REST WORSE WALKING STANDING SITTING. - Allergy list reviewed - Problem list reviewed - Medication list reviewed - Previous history of new onset pain Injury is not work related or an automotive accident - Patient pain level from 1-10: 8 - History of Injections Medications used for this condition: Patient presents today upon referral from regarding ongoing lower back pain with hip and leg pain numbness tingling weakness. She has a long history of back problems. She has had previous surgery on her back was sounds like laminectomy is performed at a couple of different levels over the past decade or so. Patient did okay with this. Because having ongoing symptoms. She has been a patient of Dr. Ferraro for last few years. He has placed a spinal cord stimulator for. And more recently has done injections. These sound like she has had facet and epidural injections to try to treat her symptoms. She did not have any long-term benefit with this especially of late. Patient has had a CT scan done recently and has been referred here for further assessment and treatment. She does state that the spinal cord stimulator does help him. But she is still having a lot of discomfort across the lumbosacral area and into the hips in the legs. This seems to follow mainly an L4 and L5 pattern. Current Medication - Diclofenac Sodium 75 MG Oral Tablet, enteric coated 30 days, 0 refills - Levothyroxine Sodium 100 MCG Oral Tablet 30 days, 0 refills - Losartan Potassium-HCTZ 50-12.5 MG Oral Tablet 30 days, 0 refills - traMADol HCl 50 MG Oral Tablet take as directed 30 days, 0 refills Past Medical/Surgical History Diagnoses: Thyroid Disease Hypertension. Arthritis Surgical: - Hysterectomy - History of Gallbladder - Back surgery Social History Not a current smoker. Current diet: No recent change in diet. Caffeine use: Caffeine use. Tobacco use: Tobacco non-user. Alcohol: Not using alcohol. Drug Use: Not using drugs. Habits: Not exercising regularly. Allergies - No Known Allergies Family History Cancer Heart disease Systemic hypertension Review Of Systems Systemic: Feeling tired. No recent weight loss and no recent weight gain. Head: No headache and no sinus pain. Eyes: No vision problems. Cataracts and Glasses/Contacts. No Glaucoma. Otolaryngeal: No hearing loss and no tinnitus. Cardiovascular: No chest pain or discomfort and no palpitations. Hypertension and High Cholesterol. Pulmonary: No daytime asthma symptoms. Chronic cough. No wheezing. Gastrointestinal: No heartburn and no abdominal pain. No Indigestion, no Acid Reflux, no Peptic Ulcer, no GI Stomach Bleed, and no Ulcers. Endocrine: Hot flashes and muscle weakness. No Diabetes. Hypothyroid. No Hyperthyroid. Hematologic: No easy bleeding, no tendency for easy bruising, and no Anemia. Musculoskeletal: Arthritis and lower back pain. No soft tissue swelling. Pain localized to one or more joints. Neurological: No dizziness, no convulsions, and no numbness. Psychological: No anxiety, no emotional lability, and no depression. Insomnia. Not crying for no reason. Skin: No dry skin. No Ulcers, no Scars, and no rash. Allergic and Immunologic: No complaint of seasonal allergic reaction. Physical Findings - Vitals taken 06/28/2023 10:28 am PW Height 65 in 59 - 78 Weight 190 lbs 96 - 178 Body Mass Index 31.6 kg/m2 Body Surface Area 1.9 m2 Skin is unremarkable. Patient has some tenderness over the SI joints. Seemingly more pain midline throughout the lumbar spine. She will have increasing back hip and leg symptoms with extension. She has improvement of her symptoms with forward flexion. Hip knee and ankle motion normal. She has a normal gait. There is some minor weakness with hip flexion bilaterally. But she is able to ambulate independently and does not require any aids or assistance to ambulate. Straight leg raising does not reproduce nerve root compression findings. 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 Spinal cord stimulator is present appears to be intact and in good position. Review of the CT scan identifying similar findings. There is however what appears to be severe stenosis at the L3-4 level due to facet joint hypertrophy and some ligamentum swelling. Assessment - Overweight 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 This appears to have not responded to injections in her spinal cord stimulator. Previous Tests Imaging: X-Ray: An X-ray was performed. CT Scan: CT scan. Counseling/Education - Lose weight Plan StartCited - Low back pain, unspecified Radiology/CT/Myelogram: Lumbar EndCited Fall Risk Assessment: This patient has been identified as a fall risk. Balance/gait along with postural blood pressure, vision and home fall hazards have been assessed. Medications have been reviewed, and recommendations made with regard to contributing factors for future falls. Plan of care: Consideration of vitamin D supplementation along with balance and strength training with consideration for formal physical therapy has been discussed with the patient. I will arrange for a CT myelogram of the lumbar spine to assess this further. She states that the stimulator that she has is not MRI compatible. She will return back to see us for further assessment and treatment. If it shows that she is quite stenotic then she may require surgical decompression to help treat her symptoms. Notes This dictation was done with voice recognition software and may contain errors and omissions. Practice Management Use of tobacco assessment performed and patient screened for future fall risk documentation of any fall with injury in past year. Health Reminders - Assess BMI satisfied 06/28/2023. - Assess Tobacco Use satisfied 06/28/2023. - Follow Up Plan BMI Management satisfied 06/28/2023.
--- OUTSIDE RECORDS SUMMARY | 2024-08-15 10:36 | XMS_ITS | Clinical Summary ---
Author Organization [facility] Address [address] [place] [address] Phone Care Team Providers Care Structural Metal Worker Name Role Phone Siobhan LÓPEZ, Jorge Unavailable [phone] Reason for Visit and Chief Complaint The Chief Complaint is: LOW BACK/HIPS/KNEES Problems Includes: Problems addressed during this encounter and other active Problems Current Visit Onset Date Resolved Date Provider Gerri rae Status Lower Back Pain 06/28/2023 DARSHAN HERNANDEZ PA-C Active Last Documented On 10:27AM ; [facility] Plan of Treatment Fall Risk Assessment: This [...] with the patient. - Last Documented On 08/05/2023 4:24PM ; [facility] Patient does see for treatment and management of the spinal cord stimulator. I am going to see if can arrange an L3-4 interlaminar epidural injection to help her with her spinal stenosis at the L3-4 level. We will see if this provides good relief of her back hip and leg symptoms. If this does not provide good relief then she will need to follow up with Dr. Mccann for consideration for decompression possible arthrodesis to treat her symptoms. She had not interested any surgical treatment at the present time she is hopeful the injection can be effective. If she does have good results then she will just continue to treat with her pain physician. - Last Documented On 08/05/2023 4:24PM ; [facility] Pending Tests Order Diagnosis Results Due Ordering Franklyn landers Radiology - CT/Myelogram Lumbar Low back pain, unspecified 06/28/23 DARSHAN HERNANDEZ PA-C Last Documented On 4 11:09AM ; [facility] Instructions to patient Lose weight Last Documented On 4 2:39PM ; [facility] Assessments Includes: Assessments from this encounter Findings - Overweight - Last Documented On 08/05/2023 4:24PM ; [facility], [facility] Review of the CT myelogram identifying what appears to be significant stenosis at the L3-4 level. This due to some facet joint hypertrophy with a lot of ligamentum swelling. Internal identifying disc herniation associated with this. Where she had her previous surgery at the L4-5 and L5-S1 level this appears to be reasonably intact with the no evidence of high-grade stenosis. - Last Documented On 08/05/2023 4:24PM ; [facility], [facility] Instructions Includes: Instructions from this encounter Instructions to patient Lose weight Last Documented On 4 2:39PM ; [facility], [facility] Medical Equipment - Implanted Devices Includes: Current Devices No Medical Equipment Recorded Medications Includes: Medications discussed during this encounter and other current Medications Current Medications (continue as prescribed) Diclofenac Sodium 75 MG Oral Tablet, enteric coated Provider: Diagnosis: Last Documented On 4 10:28AM By Lora Michele ; [facility], [facility] Losartan Potassium-HCTZ 50-12.5 MG Oral Tablet 023 Provider: RIZWANA DELGADO Diagnosis: Last Documented On 4 10:28AM By Lora Michele ; [facility], [facility] Levothyroxine Sodium 100 MCG Oral Tablet 10/02/2022 Provider: Diagnosis: Last Documented On 4 10:28AM By Lora Michele ; [facility] traMADol HCl 50 MG Oral Tablet 08/10/2022 Provider: RE MONTAÑO MD Diagnosis: Last Documented On 4 10:28AM By Lora Michele ; [facility] Medications Administered Includes: Administered Medications from this encounter No Administered Medications Recorded Results Includes: Results discussed during this encounter No Results Recorded For Specified Dates History of Present Illness Includes: History of Present Illness from this encounter BO Sarah Monahan is a 67 year old [...] Injections Medications used for this condition: Patient returns to review a CT myelogram of the lumbar spine. This is to evaluate her lower back right hip and leg symptoms. Patient has had previous surgery on her spine. This at the L4-5 and 5 1 levels. She had a previous spinal cord stimulator placed. However here of late she had been dealing with a lot of mechanical back symptoms with back pain and referred symptoms into the right hip and leg with some numbness and weakness. A CT myelogram has been done to assess this further. The patient is here for further assessment treatment options. Social History Description Last Updated Tobacco non-user 06/28/2023 Last Documented On 4 2:39PM ; [facility] Caffeine use 06/28/2023 Last Documented On 4 2:39PM ; [facility] No recent change in diet 06/28/2023 Last Documented On 4 2:39PM ; [facility] Not a current smoker. 06/28/2023 Last Documented On 4 2:39PM ; [facility] Not exercising regularly 06/28/2023 Last Documented On 4 2:39PM ; [facility] Not using alcohol 06/28/2023 Last Documented On 4 2:39PM ; [facility] Not using drugs 06/28/2023 Last Documented On 4 2:39PM ; [facility] Smoking Status Unknown Procedures and Surgical History Includes: Procedures from this encounter Procedures Code Diagnosis Performing Provider Service L ocation Service Date use of tobacco assessment performed 1000F Last Documented On 4 2:39PM ; [facility] patient screened for future fall risk: documentation of any fall with injury in past year 1100F Last Documented On 4 2:39PM ; [facility] an X-ray was performed 30590 Last Documented On 4 2:39PM ; [facility] [place] [address] Last Documented On 4 2:39PM ; [facility] Surgical History Last Updated History of back surgery 06/28/2023 Last Documented On 4 2:39PM ; [facility], [facility] History of History of Gallbladder 2023 Last Documented On 4 2:39PM ; [facility] History of hysterectomy 06/28/2023 Last Documented On 4 2:39PM ; [facility] Medical History Includes: Medical History addressed during this encounter Description Last Updated History of arthritis 06/28/2023 Last Documented On 4 2:39PM ; [facility] History of Hypertension 06/28/2023 Last Documented On 4 2:39PM ; [facility] History of Thyroid Disease 06/28/2023 Last Documented On 4 2:39PM ; [facility] Family History Includes: Family History addressed during this encounter Description Last Updated Family history of cancer 06/28/2023 Last Documented On 4 2:39PM ; [facility] Family history of heart disease 06/28/19 Last Documented On 4 2:39PM ; [facility] Family history of systemic hypertension 06/28/2023 Last Documented On 4 2:39PM ; [facility] Review of Systems Includes: Review of [...] Exam Includes: Physical Exam from this encounter No Physical Exam Recorded Allergies Includes: Active Allergies No Known Allergies Encounters Encounter Provider Location Date Check-In Time Check-Out Time Diagnosis Follow Up DARSHAN HERNANDEZ PA-C [facility] 4 2:37PM 4:06PM Overweight Insurance Includes: Active Insurance Policies Plan Name Member ID Group # Subscriber Relationship Effect jose r Dates 1 - [facility] [id number] Sarah Rasheeda Monahan Self 2 - Medicare Part B [facility] [id number] Sarah Arzoladonna Monahan Self 3 - [facility] CLAIMS DIVISION [id number] Sarah Monahan Dino Clinical Notes Includes: Clinical Notes from this encounter * Progress note Date Encounter Last Documented by 08/05/2023 Follow Up Last documented on 08/05/2023; 4:24 PM, DARSHAN Kumari; [facility] Active Problems & Conditions - Lower Back Pain Chief Complaint The Chief Complaint is: LOW BACK/HIPS/KNEES. Referred Here Referred by [facility]. History of Present Illness Sarah Monahan is [...] Injections Medications used for this condition: Patient returns to review a CT myelogram of the lumbar spine. This is to evaluate her lower back right hip and leg symptoms. Patient has had previous surgery on her spine. This at the L4-5 and 5 1 levels. She had a previous spinal cord stimulator placed. However here of late she had been dealing with a lot of mechanical back symptoms with back pain and referred symptoms into the right hip and leg with some numbness and weakness. A CT myelogram has been done to assess this further. The patient is here for further assessment treatment options. Current Medication - Diclofenac Sodium 75 MG Oral Tablet, enteric coated Tablet Delayed Release 30 days, 0 refills - Levothyroxine Sodium [...] Immunologic: No complaint of seasonal allergic reaction. Assessment - Overweight Review of the CT myelogram identifying what appears to be significant stenosis at the L3-4 level. This due to some facet joint hypertrophy with a lot of ligamentum swelling. Internal identifying disc herniation associated with this. Where she had her previous surgery at the L4-5 and L5-S1 level this appears to be reasonably intact with the no evidence of high-grade stenosis. Previous Tests Imaging: X-Ray: An X-ray was performed. CT Scan: CT scan. Counseling/Education - Lose weight Plan Fall Risk Assessment: This patient has been [...] therapy has been discussed with the patient. Patient does see for treatment and management of the spinal cord stimulator. I am going to see if can arrange an L3-4 interlaminar epidural injection to help her with her spinal stenosis at the L3-4 level. We will see if this provides good relief of her back hip and leg symptoms. If this does not provide good relief then she will need to follow up with Dr. Mccann for consideration for decompression possible arthrodesis to treat her symptoms. She had not interested any surgical treatment at the present time she is hopeful the injection can be effective. If she does have good results then she will just continue to treat with her pain physician. Notes This dictation was done with voice recognition software and may contain errors and omissions. Practice Management Use of tobacco assessment performed and patient screened for future fall risk documentation of any fall with injury in past year. Health Reminders - Assess Tobacco Use satisfied 06/28/2023. - Follow Up Plan BMI Management satisfied 08/05/2023.
--- OUTSIDE RECORDS SUMMARY | 2024-08-15 10:36 | XMS_ITS ---
Care Plan - [facility], [facility] Created on: August 15, 2024 Sarah Monahan : 1955 Sex: Female Author Organization [facility] Address [address] [place] [address] Phone Care Team Providers Care Nursing Home Administrator Name Role Phone Siobhan LÓPEZ, [facility] Unavailable [phone]
--- OUTSIDE RECORDS SUMMARY | 2024-08-15 10:36 | XMS_ITS ---
Author Organization [facility] Address [address] [place] [address] Phone Care Team Providers Care Undercoater Name Role Phone Siobhan LÓPEZ, [facility] Unavailable [phone] Problems Includes: Active, inactive, and resolved Problems All Visits Onset Date Resolved Date Provider Condition S tatus Lower Back Pain 06/28/2023 DARSHAN HERNANDEZ PA-C Active Last Documented On 4 10:27AM ; [facility] Plan of Treatment Pending Tests Order Diagnosis Results Due Ordering P rovider Radiology - CT/Myelogram Lumbar Low back pain, unspecified 06/28/23 DARSHAN HERNANDEZ PA-C Last Documented On 4 11:09AM ; [facility] Instructions to patient Lose weight Last Documented On 4 2:39PM ; [facility] Lose weight Last Documented On 4 10:35AM ; [facility] Assessments Includes: Assessments for all patient encounters Findings Encounter Date Overweight Follow Up with DARSHAN Balderas 08/05/2023 Last Documented On 4 4:24PM ; [facility] Overweight Physician Specified with DARSHAN HERNANDEZ PA-C 06/28/2023 Last Documented On 4 11:24AM ; [facility] Instructions Includes: Instructions for all patient encounters Instructions to patient Lose weight Last Documented On 4 2:39PM ; [facility] Lose weight Last Documented On 4 10:35AM ; [facility] Medical Equipment - Implanted Devices Includes: Current and historical Devices No Medical Equipment Recorded Medications Includes: Current and historical Medications Current Medications (continue as prescribed) Diclofenac Sodium 75 MG Oral Tablet, enteric coated Provider: Diagnosis: Last Documented On 4 10:28AM By Lora Michele ; [facility], [facility] Losartan Potassium-HCTZ 50-12.5 MG Oral Tablet 023 Provider: RIZWANA DELGADO Diagnosis: Last Documented On 4 10:28AM By Lora Michele ; [facility], [facility] Levothyroxine Sodium 100 MCG Oral Tablet 10/02/2022 Provider: Diagnosis: Last Documented On 4 10:28AM By Lora Michele ; [facility] traMADol HCl 50 MG Oral Tablet 08/10/2022 Provider: RE MONTAÑO MD Diagnosis: Last Documented On 4 10:28AM By Lora Michele ; [facility], [facility] Medications Administered Includes: Administered Medications in patient's chart No Administered Medications Recorded Results Includes: Results from 08/16/2023 through 08/15/2024 No Results Recorded For Specified Dates History of Present Illness History of Present Illness not supported for this document type No History of Present Illness Recorded Social History Description Last Updated Tobacco non-user 06/28/2023 Last Documented On 4 11:24AM ; [facility], [facility] Caffeine use 06/28/2023 Last Documented On 4 11:24AM ; [facility], [facility] No recent change in diet 06/28/2023 Last Documented On 4 11:24AM ; [facility], [facility] Not a current smoker. 06/28/2023 Last Documented On 4 11:24AM ; [facility] Not exercising regularly 06/28/2023 Last Documented On 4 11:24AM ; [facility] Not using alcohol 06/28/2023 Last Documented On 4 11:24AM ; [facility] Not using drugs 06/28/2023 Last Documented On 4 11:24AM ; [facility] Smoking Status Unknown Procedures and Surgical History Surgical History Last Updated History of back surgery 06/28/2023 Last Documented On 4 11:24AM ; [facility], [facility] History of History of Gallbladder 2023 Last Documented On 4 11:24AM ; [facility] History of hysterectomy 06/28/2023 Last Documented On 4 11:24AM ; [facility] Medical History Includes: Medical History in patient's chart Description Last Updated History of arthritis 06/28/2023 Last Documented On 4 11:24AM ; [facility] History of Hypertension 06/28/2023 Last Documented On 4 11:24AM ; [facility] History of Thyroid Disease 06/28/2023 Last Documented On 4 11:24AM ; [facility] Family History Includes: Family History in patient's chart Description Last Updated Family history of cancer 06/28/2023 Last Documented On 4 11:24AM ; [facility] Family history of heart disease 06/28/19 Last Documented On 4 11:24AM ; [facility] Family history of systemic hypertension 06/28/2023 Last Documented On 4 11:24AM ; [facility] Review of Systems Review of Systems not supported for this document type No Review of Systems Recorded Mental Status Description No anxiety Functional Status No Functional Status Recorded Physical Exam Physical Exam not supported for this document type No Physical Exam Recorded Allergies Includes: Active, inactive, and resolved Allergies No Known Allergies Insurance Includes: Active Insurance Policies Plan Name Member ID Group # Subscriber Relationship Effect jose r Dates 1 - [facility] [id number] Sarah Sun 2 - Medicare Part B [facility] [id number] Sarah Sun 3 - [facility] CLAIMS DIVISION [id number] Sarah Sun Clinical Notes Includes: Signed Clinical Notes starting from 04/09/2022 No Clinical Notes Recorded
== END 2024-08-15 23:59 | disposition home or self-care (01) ==
LOC: RAD 10:34
PROVIDERS: PCP Family Medicine; Visit Provider Nurse Practitioner Family
DX: M48.061 Spinal stenosis, lumbar region without neurogenic claudication (principal)
CPT/HCPCS: 72131

== ENCOUNTER 2024-08-21 13:03 | Outpatient (POV) | payer BC, MEDICARE, SELFPAY ==
[2024-08-21 13:05] VITALS: BP 154/85; BP 197/84; PULSE 70; RESP 18; O2SAT 97; BMI 32.4
--- OUTSIDE RECORDS SUMMARY | 2024-08-21 13:06 | XMS_ITS ---
Author Organization [facility] , [facility] Address [address] [place] [address] Phone Care Team Providers Care Telecommunications Line Mechanic Name Role Phone Siobhan LÓPEZ, [facility] Unavailable [phone] Problems Includes: Active, inactive, and resolved Problems All Visits Onset Date Resolved Date Provider Condition S tatus Lower Back Pain 06/28/2023 DARSHAN HERNANDEZ PA-C Active Last Documented On 4 10:27AM ; [facility], [facility] Plan of Treatment Pending Tests Order Diagnosis Results Due Ordering P rovider Radiology - CT/Myelogram Lumbar Low back pain, unspecified 06/28/23 DARSHAN HERNANDEZ PA-C Last Documented On 4 11:09AM ; [facility], [facility] Instructions to patient Lose weight Last Documented On 4 2:39PM ; [facility], [facility] Lose weight Last Documented On 4 10:35AM ; [facility], [facility] Assessments Includes: Assessments for all patient encounters Findings Encounter Date Overweight Follow Up with DARSHAN Balderas 08/05/2023 Last Documented On 4 4:24PM ; [facility] Overweight Physician Specified with DARSHAN HERNANDEZ PA-C 06/28/2023 Last Documented On 4 11:24AM ; [facility], [facility] Instructions Includes: Instructions for all patient encounters Instructions to patient Lose weight Last Documented On 4 2:39PM ; [facility], [facility] Lose weight Last Documented On 4 10:35AM ; [facility], [facility] Medical Equipment - Implanted Devices Includes: Current and historical Devices No Medical Equipment Recorded Medications Includes: Current and historical Medications Current Medications (continue as prescribed) Diclofenac Sodium 75 MG Oral Tablet, enteric coated Provider: Diagnosis: Last Documented On 4 10:28AM By Lora Michele ; [facility], [facility] Losartan Potassium-HCTZ 50-12.5 MG Oral Tablet 023 Provider: RIZWANA DELGADO Diagnosis: Last Documented On 4 10:28AM By Lora Michele ; [facility], [facility] Levothyroxine Sodium 100 MCG Oral Tablet 10/02/2022 Provider: Diagnosis: Last Documented On 4 10:28AM By Lora Michele ; [facility], [facility] traMADol HCl 50 MG Oral Tablet 08/10/2022 Provider: RE MONTAÑO MD Diagnosis: Last Documented On 4 10:28AM By Lora Michele ; [facility], [facility] Medications Administered Includes: Administered Medications in patient's chart No Administered Medications Recorded Results Includes: Results from 08/22/2023 through 08/21/2024 No Results Recorded For Specified Dates History of Present Illness History of Present Illness not supported for this document type No History of Present Illness Recorded Social History Description Last Updated Tobacco non-user 06/28/2023 Last Documented On 4 11:24AM ; [facility], [facility] Caffeine use 06/28/2023 Last Documented On 4 11:24AM ; [facility], [facility] No recent change in diet 06/28/2023 Last Documented On 4 11:24AM ; [facility], [facility] Not a current smoker. 06/28/2023 Last Documented On 4 11:24AM ; [facility], [facility] Not exercising regularly 06/28/2023 Last Documented On 4 11:24AM ; [facility], [facility] Not using alcohol 06/28/2023 Last Documented On 4 11:24AM ; [facility] Not using drugs 06/28/2023 Last Documented On 4 11:24AM ; [facility] Smoking Status Unknown Procedures and Surgical History Surgical History Last Updated History of back surgery 06/28/2023 Last Documented On 4 11:24AM ; [facility], [facility] History of History of Gallbladder 2023 Last Documented On 4 11:24AM ; [facility] History of hysterectomy 06/28/2023 Last Documented On 4 11:24AM ; [facility] Medical History Includes: Medical History in patient's chart Description Last Updated History of arthritis 06/28/2023 Last Documented On 4 11:24AM ; [facility] History of Hypertension 06/28/2023 Last Documented On 4 11:24AM ; [facility] History of Thyroid Disease 06/28/2023 Last Documented On 4 11:24AM ; [facility] Family History Includes: Family History in patient's chart Description Last Updated Family history of cancer 06/28/2023 Last Documented On 4 11:24AM ; [facility] Family history of heart disease 06/28/19 Last Documented On 4 11:24AM ; [facility] Family history of systemic hypertension 06/28/2023 Last Documented On 4 11:24AM ; [facility] Review of Systems Review of [...] [facility] [id number] Sarah Sun 2 - Medicare Part B [facility] [id number] Sarah Sun 3 - [facility] [employer]S [employer] [id number] Sarah Sun Clinical Notes Includes: Signed Clinical Notes starting from 04/09/2022 No Clinical Notes Recorded
--- OUTSIDE RECORDS SUMMARY | 2024-08-21 13:06 | XMS_ITS | Clinical Summary ---
Author Organization [facility] Address [address] [place] [address] Phone Care Team Providers Care Pottery Decoration Designer Name Role Phone Siobhan LÓPEZ, Jorge Unavailable [phone] Reason for Visit and Chief Complaint The Chief Complaint is: LOW BACK/HIPS/KNEES Problems Includes: Problems addressed during this encounter and other active Problems Current Visit Onset Date Resolved Date Provider Gerri rae Status Lower Back Pain 06/28/2023 DARSHAN HERNANDEZ PA-C Active Last Documented On 10:27AM ; [facility] Plan of Treatment Fall Risk Assessment: [...] - Last Documented On 08/05/2023 4:24PM ; [facility] Patient does see for treatment and [...] - Last Documented On 08/05/2023 4:24PM ; [facility] Pending Tests Order Diagnosis Results Due Ordering Franklyn landers Radiology - CT/Myelogram Lumbar Low back pain, unspecified 06/28/23 DARSHAN HERNANDEZ PA-C Last Documented On 4 11:09AM ; [facility] Instructions to patient Lose weight Last Documented On 4 2:39PM ; [facility] Assessments Includes: Assessments from this encounter Findings - Overweight - Last Documented On 08/05/2023 4:24PM ; [facility] Review of the CT myelogram identifying [...] - Last Documented On 08/05/2023 4:24PM ; [facility] Instructions Includes: Instructions from this encounter Instructions to patient Lose weight Last Documented On 4 2:39PM ; [facility] Medical Equipment - Implanted Devices Includes: Current Devices No Medical Equipment Recorded Medications Includes: Medications discussed during this encounter and other current Medications Current Medications (continue as prescribed) Diclofenac Sodium 75 MG Oral Tablet, enteric coated Provider: Diagnosis: Last Documented On 4 10:28AM By Lora Michele ; [facility] Losartan Potassium-HCTZ 50-12.5 MG Oral Tablet 023 Provider: RIZWANA DELGADO Diagnosis: Last Documented On 4 10:28AM By Lora Michele ; [facility] Levothyroxine Sodium 100 MCG Oral Tablet 10/02/2022 Provider: Diagnosis: Last Documented On 4 10:28AM By Lora Michele ; [facility] traMADol HCl 50 MG Oral Tablet 08/10/2022 Provider: RE MONTAÑO MD Diagnosis: Last Documented On 4 10:28AM By Lora Michele ; [facility] Medications Administered Includes: Administered Medications from [...] 06/28/2023 Last Documented On 4 2:39PM ; [facility] Caffeine use 06/28/2023 Last Documented On 4 2:39PM ; [facility] No recent change in diet 06/28/2023 Last Documented On 4 2:39PM ; [facility] Not a current smoker. 06/28/2023 Last Documented On 4 2:39PM ; [facility] Not exercising regularly 06/28/2023 Last Documented On 4 2:39PM ; [facility] Not using alcohol 06/28/2023 Last Documented On 4 2:39PM ; [facility] Not using drugs 06/28/2023 Last Documented On 4 2:39PM ; [facility] Smoking Status Unknown Procedures and Surgical History Includes: Procedures from this encounter Procedures Code Diagnosis Performing Provider Service L ocation Service Date use of tobacco assessment performed 1000F Last Documented On 4 2:39PM ; [facility] patient screened for future fall risk: documentation of any fall with injury in past year 1100F Last Documented On 4 2:39PM ; [facility] an X-ray was performed [id number] Last Documented On 4 2:39PM ; [facility] [place] scan [id number] Last Documented On 4 2:39PM ; [facility] Surgical History Last Updated History of back surgery 06/28/2023 Last Documented On 4 2:39PM ; [facility] History of History of Gallbladder 2023 Last Documented On 4 2:39PM ; [facility] History of hysterectomy 06/28/2023 Last Documented On 4 2:39PM ; [facility] Medical History Includes: Medical History addressed during this encounter Description Last Updated History of arthritis 06/28/2023 Last Documented On 4 2:39PM ; [facility] History of Hypertension 06/28/2023 Last Documented On 4 2:39PM ; [facility] History of Thyroid Disease 06/28/2023 Last Documented On 4 2:39PM ; [facility] Family History Includes: Family History addressed during this encounter Description Last Updated Family history of cancer 06/28/2023 Last Documented On 4 2:39PM ; [facility] Family history of heart disease 06/28/19 Last Documented On 4 2:39PM ; [facility] Family history of systemic hypertension 06/28/2023 Last Documented On 4 2:39PM ; [facility] Review of Systems Includes: Review of [...] Dates 1 - [facility] [id number] Sarah Rasheeda Monahan Self 2 - Medicare Part B [facility] [id number] Sarah Arzoladonna Monahan Self 3 - [facility] [employer] [id number] Sarah Monahan Dino Clinical Notes Includes: Clinical Notes from this encounter * Progress note Date Encounter Last Documented by 08/05/2023 Follow Up Last documented on 08/05/2023; 4:24 PM, DARSHAN Kumari; [facility] Active Problems & Conditions - Lower [...]
--- OUTSIDE RECORDS SUMMARY | 2024-08-21 13:06 | XMS_ITS ---
Care Plan - [facility], [facility] Created on: August 21, 2024 Sarah Monahan : 1955 Sex: Female Author Organization [facility] Address [address] [place] [address] Phone Care Team Providers Care Supervisor Sulfuric Acid Plant Name Role Phone Siobhan LÓPEZ, [facility] Unavailable [phone]
--- OUTSIDE RECORDS SUMMARY | 2024-08-21 13:06 | XMS_ITS | Clinical Summary ---
Author Organization [facility] Address [address] [place] [address] Phone Care Team Providers Care Vice President Of Product Marketing Name Role Phone Siobhan LÓPEZ, Jorge Unavailable [phone] Reason for Visit and Chief Complaint The Chief Complaint is: LOW BACK/HIPS/KNEES Problems Includes: Problems addressed during this encounter and other active Problems Current Visit Onset Date Resolved Date Provider Gerri rae Status Lower Back Pain 06/28/2023 DARSHAN HERNANDEZ PA-C Active Last Documented On 4 10:27AM ; [facility] Plan of Treatment Fall Risk [...] - Last Documented On 06/28/2023 11:24AM ; [facility] I will arrange for a CT myelogram [...] - Last Documented On 06/28/2023 11:24AM ; [facility] Pending Tests Order Diagnosis Results Due Ordering Franklyn landers Radiology - CT/Myelogram Lumbar Low back pain, unspecified 06/28/23 DARSHAN HERNANDEZ PA-C Last Documented On 4 11:09AM ; [facility] Instructions to patient Lose weight Last Documented On 4 10:35AM ; [facility] Assessments Includes: Assessments from this encounter Findings - Overweight - Last Documented On 06/28/2023 11:24AM ; [facility] 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 This appears to have not responded to injections in her spinal cord stimulator. - Last Documented On 06/28/2023 11:24AM ; [facility] Instructions Includes: Instructions from this encounter Instructions to patient Lose weight Last Documented On 4 10:35AM ; [facility] Medical Equipment - Implanted Devices Includes: Current Devices No Medical Equipment Recorded Medications Includes: Medications discussed during this encounter and other current Medications Current Medications (continue as prescribed) Diclofenac Sodium 75 MG Oral Tablet, enteric coated Provider: Diagnosis: Last Documented On 4 10:28AM By Lora Michele ; [facility] Losartan Potassium-HCTZ 50-12.5 MG Oral Tablet 023 Provider: RIZWANA DELGADO Diagnosis: Last Documented On 4 10:28AM By Lora Michele ; [facility] Levothyroxine Sodium 100 MCG Oral Tablet 10/02/2022 Provider: Diagnosis: Last Documented On 4 10:28AM By Lora Michele ; [facility] traMADol HCl 50 MG Oral Tablet 08/10/2022 Provider: RE FERRARO MD Diagnosis: Last Documented On 4 10:28AM By Lora Michele ; [facility] Medications Administered Includes: Administered Medications from this encounter No Administered Medications Recorded Vital Signs Includes: Vital Signs from this encounter Vital Name 06/28/2023 10:28A Height (in) 65 Weight (lb) 190 Body Mass Index 31.6 Body Surface Area 1.9 Note: PW Last Documented: On 06/28/2023 10:29A M ; [facility] Results Includes: Results discussed during this encounter [...] 06/28/2023 Last Documented On 4 11:24AM ; [facility] Caffeine use 06/28/2023 Last Documented On 4 11:24AM ; [facility] No recent change in diet 06/28/2023 Last Documented On 4 11:24AM ; [facility] Not a current smoker. 06/28/2023 Last Documented On 4 11:24AM ; [facility] Not exercising regularly 06/28/2023 Last Documented On 4 11:24AM ; [facility] Not using alcohol 06/28/2023 Last Documented On 4 11:24AM ; [facility] Not using drugs 06/28/2023 Last Documented On 4 11:24AM ; [facility] Smoking Status Unknown Procedures and Surgical History Includes: Procedures from this encounter Procedures Code Diagnosis Performing Provider Service L ocation Service Date use of tobacco assessment performed 1000F Last Documented On 4 10:35AM ; [facility] patient screened for future fall risk: documentation of any fall with injury in past year 1100F Last Documented On 4 10:35AM ; [facility] an X-ray was performed [id number] Last Documented On 4 10:32AM ; [facility] [place] scan [id number] Last Documented On 4 10:32AM ; [facility] Surgical History Last Updated History of back surgery 06/28/2023 Last Documented On 4 11:24AM ; [facility] History of History of Gallbladder 2023 Last Documented On 4 11:24AM ; [facility] History of hysterectomy 06/28/2023 Last Documented On 4 11:24AM ; [facility] Medical History Includes: Medical History addressed during this encounter Description Last Updated History of arthritis 06/28/2023 Last Documented On 4 11:24AM ; [facility] History of Hypertension 06/28/2023 Last Documented On 4 11:24AM ; [facility] History of Thyroid Disease 06/28/2023 Last Documented On 4 11:24AM ; [facility] Family History Includes: Family History addressed during this encounter Description Last Updated Family history of cancer 06/28/2023 Last Documented On 4 11:24AM ; [facility] Family history of heart disease 06/28/19 Last Documented On 4 11:24AM ; [facility] Family history of systemic hypertension 06/28/2023 Last Documented On 4 11:24AM ; [facility] Review of Systems Includes: Review of Systems [...] Time Diagnosis Physician Specified DARSHAN HERNANDEZ PA-C [facility] 06/28/19 24 10:13AM 10:47AM Overweight Insurance Includes: Active Insurance Policies Plan Name Member ID Group # Subscriber Relationship Effect jose r Dates 1 - [facility] [id number] Sarah Monahan Self 2 - Medicare Part B [facility] [id number] Sarah Monahan Self 3 - [facility] [employer]S [employer] [id number] Sarah Monahan Self Clinical Notes Includes: Clinical Notes from this encounter * Progress note Date Encounter Last Documented by 06/28/2023 Physician Specified Last documen mejia on 06/28/2023; 11:24 AM, DARSHAN HERNANDEZ PA-C; [facility] Active Problems & Conditions - [...]
--- NOTE | 2024-08-21 13:26 | EXP.PAIN.SOA ---
[facility] Disclaimer: The information contained in this section may have been updated after the patient was seen, as this information can be updated by other users. Medical History Hyperlipidemia Hypertension Thyroid disease Surgical History History of back surgery History of cholecystectomy History of hysterectomy Family History Other No significant family history Social History Smoking Status: Never smoker second hand exposure: No alcohol intake: never substance use type: denies use current occupational status: employed Travel in the last 8 weeks: None household members: spouse housing: house current occupation: [employer] current occupational exposures/hazards: No caffeine: Yes PM Subjective & Objective Subjective Subjective:: Patient is a pleasant 68-year-old female who presents today for follow-up of her lumbar CT imaging and medication refill. Today she rates her pain a 7 out of 10. Patient denies any new falls or injuries. She does state that she is still having the constant back pain that does primarily affect her left leg but does feel like it is a little bit more present from her last visit on the right as well. Patient states the right side does not go down all the way to her foot but around her knee with numbness on the outer side. Patient does state that the left leg goes all the way down to her foot. She does state the pain is interfering with her ability perform activities of daily living such as cooking and cleaning. We did contact her following her imaging results on the and did notify her that we would be sending on referral to Dr. Vance's office. She does state that she has not heard anything just yet from this office. Patient is currently managed with baclofen 10 mg 3 times a day, diclofenac 75 mg twice a day, ropinirole 1 mg at bedtime and Prescott 5 mg 3 times a day from our office along with compounded cream. She denies any side effects. Her Michael has been reviewed and is appropriate. Review of Systems: General: No recent weight changes, no fever, no sleep disturbances Respiratory: No cough, no shortness of air, no recurring pulmonary infections Cardiovascular/peripheral vascular: No chest pain, no palpitations, no edema, no shortness of breath Gastrointestinal: No new onset incontinence, normal bowel movements reported Genitourinary: No new onset incontinence Musculoskeletal: Low back pain, bilateral leg pain Psychiatric: [Normal mood/affect] Neurological: [Denies weakness in extremities], [denies balance issues] Pain at rest (0-10 scale): 7 Objective Objective:: Physical Exam: General: Alert and oriented x3, no acute distress, pleasant and cooperative Lungs: Respirations even and unlabored, symmetrical chest expansion Eyes: PERRL Musculoskeletal: Flexion and extension of lumbar [spine] somewhat guarded secondary to pain, [antalgic gait noted] positive leg raise Neurological: Speech clear, no gross sensory deficit Has patient had previous pain injection?: No Conservative treatment options previously tried: Home exercise plan Length of treatment: Longer than 12 weeks Meds Home Medications and Allergies Home Medications ?Medication ?Instructions ?Recorded ?Confirmed ?Type levothyroxine 100 mcg tablet 100 mg PO DAILY hypothyroid 03/11/18 08/21/24 History losartan 50 mg tablet 50 mg PO DAILY bp 04/10/20 08/21/24 History cyclobenzaprine 10 mg tablet 10 mg PO TID PRN cramps #90 tabs 11/28/20 08/21/24 Rx tizanidine 4 mg tablet 4 mg PO HS spasms #30 tabs 04/29/22 08/21/24 Rx ropinirole 0.25 mg tablet 0.25 mg PO DAILY Restless leg #30 12/17/22 08/21/24 Rx tabs atorvastatin 10 mg tablet 10 mg PO DAILY Cholesterol 12/29/22 08/21/24 History omeprazole 10 mg capsule,delayed 10 mg PO DAILY Cholesterol 12/29/22 08/21/24 History release tramadol 50 mg tablet 50 mg PO TID . #90 tabs 06/09/23 08/21/24 Rx methocarbamol 500 mg tablet 500 mg PO TID #30 tabs 06/01/24 08/21/24 Rx lidocaine 5 % topical patch 1 patch topical DAILY back pain 06/04/24 08/21/24 Rx #15 ea prednisone 20 mg tablet 20 mg PO BID #14 tabs 06/08/24 08/21/24 Rx diclofenac sodium 75 mg 75 mg PO BID Pain #60 tabs 06/09/24 08/21/24 Rx tablet,delayed release ciprofloxacin HCl 500 mg tablet 500 mg PO DAILY #3 tabs 06/12/24 08/21/24 Rx gabapentin 300 mg capsule 300 mg PO TID #90 caps 06/29/24 08/21/24 Rx baclofen 10 mg tablet 10 mg PO TID #90 tabs 07/28/24 08/21/24 Rx hydrocodone 5 mg-acetaminophen 325 1 tab PO TID #90 tabs 07/28/24 08/21/24 Rx mg tablet ropinirole 1 mg tablet See Rx Instructions .Route 07/28/24 08/21/24 Rx .COMPLEX #30 tabs New Prescriptions to Start Prescriptions: Allergies Allergy/AdvReac Type Severity Reaction Status Date / Time No Known Drug Allergies (NO Allergy Unknown Unknown Verified 06/04/24 12:01 KNOWN DRUG ALLERGIES) Assessment and Plan *Assessment and plan (1) Lumbar radiculopathy: Status: Acute Category: Medical Code(s): M54.16 - Radiculopathy, lumbar region (2) Lumbar back pain: Status: Acute Category: Medical Code(s): M54.50 - Low back pain, unspecified Plan I did review over at length with the patient and her regarding the updated lumbar CT. Patient does have severe narrowing more prominent on the L4-L5 L5-S1 levels. I do still want her to be seen by neurosurgery with Dr. Vance for evaluation of possible surgical intervention. I did discuss with the patient due to her worsening symptoms that do radiate now into both legs however the left side is still the worst side that I do believe she would benefit from a lumbar epidural steroid injection. Risk and benefits were discussed with the patient and she would like to proceed forward with this plan of care. Patient does have symptoms consistent with the L4-L5 dermatome that do radiate down along the lateral aspect of her bilateral legs. Patient has tried and failed conservative therapy including oral medications, heat and ice, topicals, at home stretching exercise for longer than 12 weeks as well as physical therapy. Patient will be refilled on her medications including her Prescott, ropinirole, diclofenac and baclofen. Patient will be scheduled for a LESI L4-L5 under fluoroscopy. She is not on any blood thinners. I will also reach out to [employer] and see about having representatives meet with her regarding her current stimulation to try and target more the L4-L5 area. Patient agrees with this plan of care. Risks and benefits of the medication have been explained in detail to the patient. The patient does understand the risk of dependence on the medication when given over a prolonged period. Patient has been advised of risks of oversedation with the prescribed medication. Narcan has been offered to the paitent in the event of oversedation. Patient has been advised that a family member should also be educated regarding administration of Narcan. The patient has been advised to consult with his/her primary care provider and pharmacist regarding drug-drug interaction of medications currently prescribed. Patient has been prescribed a controlled substance after being counseled on the medication, medication safety, and possible side effects. Opioid contract was reviewed and signed by the patient, and that they have agreed to all of the terms set forth by our compliance program. A UDS is needed to verify patient's compliance with our office pain contract. This is ordered based off specific treatments related to chronic pain with the potential to abuse certain medications. Patient has been instructed to contact the clinic with any concerns before the next appointment. Dr. Ferraro has reviewed this note and agrees with this plan of care. This note was dictated using voice recognition software and make contain errors or omissions.
== END 2024-08-21 23:59 | disposition home or self-care (01) ==
PROVIDERS: PCP Family Medicine; Visit Provider Nurse Practitioner Family
DX: M54.16 Radiculopathy, lumbar region (principal); M54.50 Low back pain, unspecified; Z73.89 Other problems related to life management difficulty
CPT/HCPCS: 99212; G0463

== ENCOUNTER 2025-02-22 14:14 | Outpatient (CLI) | payer BC, MEDICARE, SELFPAY ==
--- NOTE | 2025-02-22 14:17 | MM_ITS ---
PROCEDURE INFORMATION: Exam: MG Bilateral Screening 3D Mammography Exam date and time: 02/22/2025 2:30 PM Age: 69 years old Clinical indication: Screening mammogram TECHNIQUE: Imaging protocol: Bilateral Screening tomosynthesis and 2D mammography including computer-aided detection (CAD) when performed. COMPARISON: 1. MG DMDXUL DIG MAMM-DX UNILATERAL-LT 09/06/2012 9:01 AM 2. MG DMSB DIGITAL MAMM-SCREEN BILATERAL 02/29/2012 1:18 PM 3. MG DIGMAMMS MAMMOGRAM SCREEN-CORPORATE ACCOUNT EXECUTIVE N/C 12/06/2007 1:34 PM 4. MG DIGMAMMS MAMMOGRAM SCREEN-CORPORATE ACCOUNT EXECUTIVE N/C 01/13/2006 1:33 PM FINDINGS: MAMMOGRAPHY: Breast composition: There are scattered areas of fibroglandular density. Mass: None. Architectural distortion: No new or suspicious architectural distortion. Calcifications: No new or suspicious calcifications are present Asymmetric density: No new or suspicious asymmetric density is present Skin thickening: None. Axillary adenopathy: None. IMPRESSION: No mammographic evidence of malignancy. Recommend annual screening mammography unless otherwise clinically indicated. ASSESSMENT: BI-RADS category 1: Negative.
--- OUTSIDE RECORDS SUMMARY | 2025-02-22 14:24 | XMS_ITS | Clinical Summary ---
Author Organization Healthcare Address [address] [place] [address] Care Team Providers Care Occupational Medicine Physician Name Role Phone Jass Wellington MD Primary Care Provider [phone] Family History Medical History Relation Name Comments Heart disease Brother Cancer Father Heart disease Father Arthritis Mother Hyperlipidemia Mother Hypertension Mother Parkinson Disease Other Relation Name Status Comments Brother Father Mother Other Social History Tobacco Use Types Packs/Day Years Used Date Smoking Tobacco: Never Alcohol Use Standard Drinks/Week Comments No 0 (1 standard drink = 0.6 oz pure alcohol) Alcoholic Drinks/day: Never Drank Alcohol Comments Unknown Sex and Gender Information Value Date Recorded Sex Assigned at Not on file Legal Sex Female 8:06 PM EDT Gender Identity Not on file Sexual Orientation Not on file Last Filed Vital Signs Vital Sign Reading Time Taken Comments Blood Pressure - - Pulse - - Temperature - - Respiratory Rate - - Oxygen Saturation - - Inhaled Oxygen Concentration - - Weight 86.6 kg (191 lb 0.1 oz) 03/27/2014 8:22 A M EST Height 165.1 cm (5' 5 ) 12/19/2013 8:09 AM EDT Body Mass Index 31.79 12/19/2013 8:09 AM EDT Plan of Treatment Not on file Care Teams Occupational Medicine Physician Relationship Specialty Start Date End Date Jass Wellington MD [address] [place] [id number] PCP - General 09/06/20
--- OUTSIDE RECORDS SUMMARY | 2025-02-22 14:24 | XMS_ITS | Data Portability ---
Demographics Address [address] [place] [address] Home Phone Mobile Phone Email Address Preferred Language en Marital Status Caodaism Affiliation Unknown Race White Ethnic Group Not or Lati no Author Organization [facility] Address [address] [place] [address] Assessment Encounter Date Assessment Date Assessment LastModified by Organization Details LastModified Time 09/14/2024 09/14/2024 ASSESSMENT: Ms. Monahan is a 68-year-old female who was referred to our office by Dr. Ferraro for evaluation of low back pain with radiation to the left lower extremity more than the right that has been severe since the beginning of May of this year. She is accompanied by her , Roque. She reports she has had issues with back pain for quite some time but this became significantly more severe in May of this year with no known cause. She did have her last injection with Dr. Ferraro in July with minimal improvement. She is scheduled for another one at the end of this month. She is reporting back pain essentially from her neck down but does then localize it to her entire lumbar spine that radiates down her left leg more than the right. She reports it was only on the lateral aspect of her left leg down to her ankle but now it is also in the medial aspect of her left thigh. She is starting to feel pain in her right hip and knee secondary to compensating for the pain she has on the left. She has had spine surgery at [place] in 2009, at [facility] in 2011, and a spinal cord stimulator placed by pain management in 2019. She is unsure who did her spine surgeries. She has been taking diclofenac, baclofen, and has recently been started on hydrocodone but she only takes it at night as she does not want to be sedated all day. She reports she was unable to tolerate gabapentin and a second medicine that she cannot remember the name of. She does report doing recent physical therapy earlier this year at [facility]. She is visibly uncomfortable in the room and reports that something has to be done to help with this pain. She denies bowel or bladder control loss or saddle paresthesia. Unfortunately her spinal cord stimulator, which is a [employer] WaveWriter model number SC 1 160 that is only MRI compatible for the head per their website. IMAGING: CT scan completed at [facility] on 08/15/2024. I have reviewed the images personally and read the radiologist's report. This reveals degenerative changes more predominant at the lower lumbar levels with severe left foraminal stenosis at L5-S1 due to disc/osteophyte complex. Surgical changes visualized at L4-5 and L5-S1 multilevel foraminal and central stenosis visualized at the lower lumbar levels. We will upload these images to our PACS Nurse practitioner visit PLAN: Standing lumbar AP, lateral, flexion, extension x-rays Left hip x-ray Lumbar CT myelogram as her spinal cord stimulator is not MRI compatible for lumbar scanning Follow-up with Dr. Gonzalez Ms. Monahan is going to move forward with additional imaging of her lumbar spine to include standing x-rays with flexion and extension to evaluate for any instability. We will also get an x-ray of her left hip given the pain she has with internal and external rotation. Unfortunately, her stimulator is not MRI compatible for the lumbar spine, so she will have to have a lumbar CT myelogram completed at the hospital. She will follow-up with Dr. Gonzalez to review these results to determine if she would be candidate for continued injections or surgical interventions. They verbalized understanding of these instructions and are agreeable to this plan. They have no further questions or concerns at this time. They are satisfied with this plan of care. [email or web address] Not available 09/14/2024 12:41:24 10/25/2024 10/25/2024 Sarah Monahan is a 68-year-old female status post 2 lumbar surgeries in 2009 and 2011 and a spinal cord stimulator placement [address] Cohen who presents to the clinic with complaints of low back pain radiating to her left lower extremity since May. Lumbar x-rays from 09/14/[address] myelogram of the lumbar spine from 09/27/2024 reviewed by myself and Dr. Gonzalez. The patient has transitional anatomy. There is a disc protrusion at L3-4 resulting in central canal stenosis and left foraminal stenosis. There is no instability noted on x-rays. Further treatment options were discussed in depth with the patient. Dr. Gonzalez recommends a left L3-4 MIS LMD. Risks versus benefits were discussed with the patient. She expressed understanding and elected to proceed. [email or web address] Not available 10/25/2024 10:13:33 01/03/2025 01/03/2025 Sarah Monahan is a 69-year-old female status post left L3-4 MIS lumbar microdiscectomy for lumbar radiculopathy on 11/17/2024 who presents to the clinic for a follow-up. No new imaging is available for review today. I discussed with the patient that her numbness and paresthesias would take longer to improve, if they do improve. We will have her return for a follow-up visit in 6 weeks. [email or web address] Not available 01/03/2025 14:28:13 Plan of Treatment Reminders Order Date Submit Date Provider Last Modified By Organization Details Last Modified Time Details Appointments [facility] Juliann otoole 2024 10:45A M MABEL GONZALEZ MD Not available Not available Not available Lab None record ed. Referral None record ed. Procedures None record ed. Surgeries None record ed. Imaging None record ed. Medication Orders None record ed. Patient TargetsNo targets recorded. Patient InstructionsNo instructions recorded. Reason for Referral None Reported. Results Created Date Observation Date Name Description Value Unit Range Abnormal Flag Note LastModifiedBy Organization Detail LastModifiedTime 09/15/1909/14/2024 XR, lumbo sacra l spine , 4 or more view [facility] [address] [place] [address] Ovidio singer Name: SARAH singer : [birth year] Ovidio singer Orderi ng Provid er: RED Singer EXAM DATE: 2024 EXAM: XR LUMBAR SPINE AP/LAT /FLEX/ EXT CLINIC AL INFORM ATION: Back pain. IMAGES PROVID ED: AP, latera l and coned- down views of the lumbar spine with additi onal latera l views in flexio n and extens ion. COMPAR LUIZA: None. FINDIN GS: Verteb ral body height s are normal . Multip le disc spaces are narrow ed in the lower aspect of the L-spin e. Stimul ator wires enter the canal at L1-2. Diffus e spurri ng is presen t. No abnorm ality of alignm ent is seen. No instab ility is seen on flexio n or extens ion. No radiog raphic eviden ce of injury is noted. IMPRES JENN: Modera te diffus e degene rative disc diseas e. No instab ility. Interp reted By: Sammy Peterson MD Electr onical ly Signed By: Sammy Peterson MD on 025 10:41 AM [facility] [address] [place], [address], 09/15/2024 16:18:59 09/15/19 25 09/14/2024 XR, hip, bilat eral, 2 view [facility] [address] [place], [place] [id number] [phone] Patien t Name: SARAH singer : [birth year] Patien t Orderi ng Provid er: RED PENNY T EXAM DATE: 2024 EXAM: XR NIKOLE HIPS, 2 VWS COMPAR LUIZA: None. HISTOR Y: Bilate ral hip pain. FINDIN GS: There are mild degene rative change s in both hips. There is mild margin al spurri ng. The joint space appear s normal . There are mild degene rative change s in the SI joints . There is no acute fractu re. IMPRES JENN: 1. There are mild degene rative change s in the hips and pelvis . Interp reted By: Loren freitas MD Electr onical ly Signed By: Loren freitas MD on 025 10:59 AM [facility] [address] [place], [address], 09/15/2024 16:19:00 09/16/19 25 08/15/2024 CT, lumba r spine , w/o contr ast No observ ation record ed. BARCODE Not Available 2024 10:13:07 10/11/19 25 09/27/2024 CT, myelo gram, lumba r spine No observ ation record ed. [email or web address] [facility] Scheduling [address], [place], [address], 11/15/2024 16:23:48 Result Notes Documentation Provider Name and Address Organization Details Recorded Time Xr, Lumbosacral Spine, 4 Or More View : [facility] [address] [place] [address] Patient Name: SARAH MONAHAN Patient : 1955 Patient Ordering Provider: RED ALFREDO EXAM DATE: 09/14/2024 EXAM: XR LUMBAR SPINE AP/LAT/FLEX/EXT CLINICAL INFORMATION: Back pain. IMAGES PROVIDED: AP, lateral and coned-down views of the lumbar spine with additional lateral views in flexion and extension. COMPARISON: None. FINDINGS: Vertebral body heights are normal. Multiple disc spaces are narrowed in the lower aspect of the L-spine. Stimulator wires enter the canal at L1-2. Diffuse spurring is present. No abnormality of alignment is seen. No instability is seen on flexion or extension. No radiographic evidence of injury is noted. IMPRESSION: Moderate diffuse degenerative disc disease. No instability. Interpreted By: Sammy Peterson MD ALFREDO, PHOTO EDITOR [address] [place], [address], [facility] 09/15/2024 16:11:27 Xr, Hip, Bilateral, 2 View : [facility] [address] [place] [address] Patient Name: SARAH MONAAHN Patient : 1955 Patient Ordering Provider: RED ALFREDO EXAM DATE: 09/14/2024 EXAM: XR NIKOLE HIPS, 2 VWS COMPARISON: None. HISTORY: Bilateral hip pain. FINDINGS: There are mild degenerative changes in both hips. There is mild marginal spurring. The joint space appears normal. There are mild degenerative changes in the SI joints. There is no acute fracture. IMPRESSION: 1. There are mild degenerative changes in the hips and pelvis. Interpreted By: Jens Chung MD ALFREDO, PHOTO EDITOR [address] [place], [address], [facility] 09/15/2024 16:11:27 Medical Equipment None Reported. Medications Name Sig Start Date Stop Date Status Note LastModified by Organization Details LastModified Time furosemide 40 mg tablet Two times a day active Frequency: bid;Medicat ion Description : furosemide; Dosage:1; Route:oral; refills:0 Not Available Not Available Not Available lisinopril 10 mg tablet Daily active Frequency: daily;Medic ation Description : lisinopril; Dosage:1; Route:oral; refills:5 Not Available Not Available Not Available gabapentin 100 mg capsule Three times a day active Frequency: tid;Medicat ion Description : gabapentin; Route:oral; refills:0 Not Available Not Available Not Available nabumetone 500 mg tablet Two times a day active Frequency: bid;Medicat ion Description : nabumetone; Route:oral; refills:0 Not Available Not Available Not Available Enjuvia 0.9 mg tablet Daily active Frequency: daily;Medic ation Description : conjugated estrogens; Route:oral; refills:0 Not Available Not Available Not Available Vitals None Recorded Social History None recorded. Functional Status None recorded. Mental Status None recorded. Family History Relationship Description Onset Age of this Age Resolved Age Notes LastModified by Organization Details LastModified Time Father Back problem 50 58 [email or web address] Not tea ilable 09/14/2024 09:14:18 Medical History Condition Response TENS Unit for current problem N Massage Therapy for current problem N Traction for current problem N Other N Gout N Neuro-modulating Drugs for current probl em N Hyperthyroidism Y Emphysema N Narcotic Pain Medication for current pro blem Y Black Lung N Steroid Pack for current problem Y NSAID Use Y Hypothyroidism N COPD N Injections for current problem Y Osteoporosis/Osteopenia N Heart Attack ([place]) N Deep Vein Thrombosis N Mental Illness N Diabetes N Bleeding Disorder N Arthritis Y Tuberculosis N Genetic Disorder N AIDS/HIV N Chiropractor treatment for current probl em N Kidney Failure N Cancer N Stroke N Ultrasound Treatment for current problem Y Asthma N Epilepsy/Seizures N Sleep Apnea N Thyroid Disorder Y High Cholesterol Y Physical Therapy Treatments for current problem Y Liver Disease N Pulmonary Embolism N Fibromyalgia N Dialysis N Hypertension Y Kidney Disease N Gynecological HistoryNo gynecological history recorded. Obstetrics History GPAL:G 0 P 0 0 0 0 Past Encounters Encounter ID Performer Location Encounter Start Date Encounter Closed Date Diagnosis/Indication Diagnosis SNOMED-CT Code Diagnosis ICD10 Code Diagnosis IMO Codes Diagnosis Note [id number] RED JAZTROY ALFREDO, PHOTO EDITOR [facility] [address] [place] [id number] 09/14/2024 09:09:16 09/15/2024 04:13:36 Lumbar radiculopathy 014903234 M54.16 [id number] Lumbar spondylosis 92293 0009 M47.816 [id number] PETE LEVI PA-C [facility] [address] [place] [address] 10/25/2024 09:17:36 10/30/2024 07:13:19 Lumbar radiculopathy 491455045 M54.16 [id number] POOL GONZALEZ MD SURGERY SCHEDULE [address] [place] [address] 12/20/2024 11:03:06 12/22/2024 09:59:05 [id number] PETE LEVI PA-C [facility] [address] [place] [address] 01/03/2025 13:58:18 01/04/2025 04:44:23 Lumbar radiculopathy 341398329 M54.16 [id number] Health Concerns Section Related Observation LastModified by Organization Detai ls LastModified Time None Recorded Concern Status LastModified by Organization Details LastModified Time None Recorded Advance Directives Directive None Recorded Payers Insurance Date Sequence Insurance Name Policy Number Policy Poe Covered Member ID Poe Member ID Guarantor Name 02/20/2025 1 [place] [facility] [id number] 1 Sarah Monahan [id number] Sarah Monahan 02/20/2025 2 [place] Sarah Monahan [id number] Sarah Monahan 01/03/2025 3 [facility] (MEDICARE SUPPLEMENT) Sarah Monahan [id number] Sarah Monahan Notes Date Note Type Note Provider Name and Address Organization Details Recorded Time 09/14/2024 text/html Ms. Monahan is a 68-year-old female who was referred to our office by Dr. Ferraro for evaluation of low back pain with radiation to the left lower extremity more than the right that has been severe since the beginning of May of this year. RED ALFREDO, PHOTO EDITOR [address] [place], [address], [facility] 09/14/2024 12:41:32 10/25/2024 text/html ROS as noted in the HPI Sarah Monahan is a 68-year-old female status post 2 lumbar surgeries in 2009 and 2011 and a spinal cord stimulator placement [address] Cohen who presents to the clinic with complaints of low back pain radiating to her left lower extremity since May. She advises that the pain radiates down the left lateral left lower extremity, extending to all of her toes. She has associated numbness and paresthesias in this area as well. She has also started to have some left medial thigh pain. She has right hip pain as well but denies any radicular pain on the right side. She denies any loss of control of her bowel or bladder or saddle anesthesia. She advises that her symptoms are worse with standing and walking and she often has to sit and take breaks or lean on things. She did approximately 6 weeks of physical therapy with no relief. She has also received injections with pain management without relief. She has taken NSAIDs, hydrocodone, muscle relaxers, and gabapentin without relief. She advises that the pain is affecting her daily life and she is unable to do things that she would like to do. PETE LEVI PA-C [address] [place], [address], [facility] 10/25/2024 10:13:50 01/03/2025 text/html ROS as noted in the HPI Sarah Monahan is a 69-year-old female status post left L3-4 MIS lumbar microdiscectomy for lumbar radiculopathy on 11/17/2024 who presents to the clinic for a follow-up. She advises that the pain in her left lower extremity has resolved. She continues to have numbness and paresthesias extending from her knee to her foot. She also has some low back pain. Overall, she is doing much better than she was prior to surgery. PETE LEVI PA-C [address] [place], [address], [facility] 01/03/2025 14:28:29 OBGyn Episode No OBEpisode recorded.
--- OUTSIDE RECORDS SUMMARY | 2025-02-22 14:24 | XMS_ITS | Continuity of Care Document ---
Demographics Address [address] [place] [address] Home Phone Mobile Phone Email Address Preferred Language en Marital Status Congregation Affiliation Unknown Race White Ethnic Group Not or Lati no Author Organization [facility] NE[facility]OS[facility] [address] [place] [address] Assessment Encounter Date Assessment Date Assessment LastModified by Organization Details LastModified Time 01/03/2025 01/03/2025 Sarah Monahan is a 69-year-old [...] for a follow-up visit in 6 weeks. [email or web address] Not available 01/03/2025 14:28:13 Plan of Treatment Reminders Order Date Submit Date Provider Last Modified By Organization Details Last Modified Time Details Appointments [facility] K r 2024 10:45A M MABEL LOJA MD Not available Not available Not available Lab None record ed. Referral None record ed. Procedures None record ed. Surgeries None record ed. Imaging None record ed. Medication Orders None record ed. Patient TargetsNo targets recorded. Patient InstructionsNo instructions recorded. Reason for Referral None Reported. Medical Equipment None Reported. Medications Name Sig [...] LastModified Time Father Back problem 50 58 Not tea ilable 09/14/2024 09:14:18 Medical History Condition Response TENS Unit for current problem N Traction for current problem N Massage Therapy for current problem N Other N Gout N Neuro-modulating Drugs for current probl em N Hyperthyroidism Y Emphysema N Narcotic Pain Medication for current pro blem Y Black Lung N Steroid Pack for current problem Y NSAID Use Y Hypothyroidism N COPD N Injections for current problem Y Osteoporosis/Osteopenia N Heart Attack ([place]) N Deep Vein Thrombosis N Mental Illness N Diabetes N Bleeding Disorder N Arthritis Y Tuberculosis N Genetic Disorder N AIDS/HIV N Chiropractor treatment for current probl em N Kidney Failure N Cancer N Stroke N Asthma N Ultrasound Treatment for current problem Y Epilepsy/Seizures N Sleep Apnea N Thyroid Disorder [...] ICD10 Code Diagnosis IMO Codes Diagnosis Note [id number] POOL LOJA MD SURGERY SCHEDULE [address] [place] [address] 12/20/2024 11:03:06 12/22/2024 09:59:05 [id number] PETE LEVI PA-C [facility] [address] [place] [address] 01/03/2025 13:58:18 01/04/2025 04:44:23 Lumbar radiculopathy [id number] M54.16 69006 Health Concerns Section Related Observation LastModified by Organization Detai ls LastModified Time None Recorded Concern Status LastModified by Organization Details LastModified Time None Recorded Payers Encounter Date Sequence Insurance Name Policy Number Policy Poe Covered Member ID Poe Member ID Guarantor Name 01/03/2025 2 [place] Sarah Monahan [id number] Sarah Monahan 01/03/2025 1 [place] [id number] Sarah Monahan [id number] Sarah Monahan Notes Date Note Type Note Provider Name and Address Organization Details Recorded Time 01/03/2025 text/html ROS as noted in the [...] prior to surgery. PETE LEVI PA-C [address] [place], [address], [facility] 01/03/2025 14:28:29 OBGyn Episode No OBEpisode recorded.
== END 2025-02-22 23:59 | disposition home or self-care (01) ==
LOC: RAD 14:15
PROVIDERS: PCP Family Medicine; Visit Provider Family Medicine
DX: Z12.31 Encounter for screening mammogram for malignant neoplasm of breast (principal); R92.323 Mammographic fibroglandular density, bilateral breasts
CPT/HCPCS: 77063; 77067

== ENCOUNTER 2025-03-30 08:47 | Outpatient (CLI) | payer MEDICARE, BC, SELFPAY ==
[2025-03-30 08:05] VITALS: BMI 33.3
--- NOTE | 2025-03-30 09:24 | ECG_ITS ---
APPROVED REPORT Exam: Resting ECG HR:75 bpm ECG Measurements Heart Rate 75 AXES AK 163 P 31 QRSd 79 QRS -3 QT 339 T 75 QTc 368 Conclusion SINUS RHYTHM LOW QRS VOLTAGE IN PRECORDIAL LEADS [QRS DEFLECTION < 1.0 mV IN CHEST LEADS] NONSPECIFIC T-WAVE ABNORMALITY BORDERLINE ECG UNCONFIRMED REPORT Electronically signed by : Jass Best MD 03/31/2025 08:41:42
[2025-03-30 09:34] LABS: Hematocrit 40.4 % (37.0-47.0); Hemoglobin 13.0 g/dL (12.2-16.2); Immature Granulocytes % 0.4 %; Mean Corpuscular HGB Conc 32.2 g/dL (31.8-35.4); Mean Corpuscular Hemoglobin 29.3 pg (27.0-31.2); Mean Corpuscular Volume 91.2 fl (81-99); Nucleated Red Blood Cells % 0 %; Platelet Count 266 K/mm3 (142-424); Red Blood Count 4.43 M/mm3 (4.20-5.40); Red Cell Distribution Width-SD 42.0 fL; White Blood Count 8.5 K/mm3 (4.8-10.8)
[2025-03-30 09:38] LABS: Chloride 107 mmol/L (98-107); Potassium 4.1 mmoL/L (3.5-5.1); Sodium 142 mmol/L (136-145)
[2025-03-30 09:41] LABS: Anion Gap 18.1 mEq/L (5-15); Blood Urea Nitrogen 25 mg/dl (7-17); Calcium 9.4 mg/dl (8.4-10.2); Carbon Dioxide 21 mmol/L (22.0-30.0); Creatinine Clearance Estimated 71 mL/min (50-200); Creatinine,Serum 1.10 mg/dl (0.52-1.04); Estimated Glomerular Filt Rate 50 ml/min (>60); GFR (African American) 60 ML/MIN (>60); Glucose 99 mg/dl (74-100)
== END 2025-03-30 23:59 | disposition home or self-care (01) ==
LOC: PREOP 08:48
PROVIDERS: PCP Family Medicine; Visit Provider Anesthesiology
DX: Z01.810 Encounter for preprocedural cardiovascular examination (principal); Z01.812 Encounter for preprocedural laboratory examination; R94.31 Abnormal electrocardiogram [ECG] [EKG]
CPT/HCPCS: 80048; 85025; 93005

== ENCOUNTER 2025-04-06 08:37 | Day surgery (SDC) | payer MEDICARE, BC, SELFPAY ==
[2025-03-30 13:56] VITALS: BMI 33.3
[2025-04-06 09:13] VITALS: BP 141/75; PULSE 81; RESP 18; TEMP 36.9; O2SAT 97; BMI 33.3
[2025-04-06] MEDS: LACTATED RINGERS 1000ML 1,000 ML 25 ML IV (09:42)
--- NOTE | 2025-04-06 10:23 | EXP.ANES.CKL ---
[facility] Disclaimer: The information contained in this section may have been updated after the patient was seen, as this information can be updated by other users. 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 current occupational exposures/hazards: No caffeine: Yes Have you lived/traveled outside US in past 30 days?: No Contact w/someone who lives/traveled outside US past 30 days?: No Exposure to someone with infectious disease in past 14 days?: No Do you have a fever (greater than 100.4 F or 38 C)?: No Have you tested positive for COVID-19?: No Exposed to someone with COVID-19 in past 14 days?: No Do you have a sore throat?: No Do you have a cough?: No Do you have any weakness?: No Are you experiencing any nausea/vomitting?: No Do you have any diarrhea?: No Are you experiencing any unusual bleeding?: No Do you have any muscle aches/pain?: No Do you have any abdominal pain?: No Are you experiencing loss of taste or smell?: No [facility] Anesthesia Checklist Patient Identification Patient Identification: Arm Band Structural Data Admitted From: Home Planned Operative Procedure/s: Neurostimulator Generator Replacement Consent for Planned Operative Procedure(s) Verified: Yes Verified Documents: Surgical Consent and History and Physical NPO Status Verified Time NPO: 00:00 Additional verifications Anesthesia Reactions: No Hx Blood Transfusions: No Blood Transfusion Reaction: No Airway Assessment Mallampati Score:: Class II C-Spine Mobility Assessed: Yes TMJ Mobility Assessed: Yes Dentition: Dentures-good fit (removed) Neurological Assessment Level of Consciousness: Awake, Alert and Appropriate Anesthesia Plan Anesthesia Risk discussed: Yes Anesthesia Plan: Verified ASA Class: II Anesthesia Type: MAC
[2025-04-06] MEDS: LIDOCAINE 1% W/EPI 1:100,000 20ML VIAL 40 ML (11:42)
[2025-04-06] MEDS: GENTAMICIN 80 MG/2 ML VIAL (11:43)
[2025-04-06] MEDS: SODIUM CHLORIDE 0.9% 20ML VIAL 20 ML IV (11:45)
[2025-04-06 12:10] VITALS: BP 118/55; PULSE 84; RESP 16; TEMP 36.7; O2SAT 95
[2025-04-06 12:25] VITALS: BP 129/63; PULSE 85; RESP 16; TEMP 36.7; O2SAT 98
[2025-04-06 12:40] VITALS: BP 126/58; PULSE 73; RESP 18; TEMP 36.7; O2SAT 96
--- NOTE | 2025-04-06 12:45 | P.HP_ITS ---
History of Present Illness *Admission Date: 04/06/25 *Reason for visit:: Spinal cord stimulator battery replacement *History of present illness: This patient has an end-of-life spinal cord stimulator generator. We will replace the generator today. [facility] Disclaimer: The information contained in this section may have been updated after the patient was seen, as this information can be updated by other users. Medical History (Updated 04/06/25 @ 12:46 by Johnathan Ferraro MD) Spinal cord stimulator status Thyroid disease Hyperlipidemia Hypertension Surgical History History of back surgery History of hysterectomy History of cholecystectomy Family History Other No significant family history Social History (Updated 04/06/25 @ 09:23 by Chayo Talavera RN) Smoking Status: Never smoker second hand exposure: No alcohol intake: never substance use type: denies use current occupational status: retired Travel in the last 8 weeks?: None household members: spouse housing: house current occupation: [employer] current occupational exposures/hazards: No caffeine: Yes Have you lived/traveled outside [place] in past 30 days?: No Contact w/someone who lives/traveled outside [place] past 30 days?: No Exposure to someone with infectious disease in past 14 days?: No Do you have a fever (greater than 100.4 F or 38 C)?: No Have you tested positive for COVID-19?: No Exposed to someone with COVID-19 in past 14 days?: No Do you have a sore throat?: No Do you have a cough?: No Do you have any weakness?: No Are you experiencing any nausea/vomitting?: No Do you have any diarrhea?: No Are you experiencing any unusual bleeding?: No Do you have any muscle aches/pain?: No Do you have any abdominal pain?: No Are you experiencing loss of taste or smell?: No Other Medical History Have you received the Flu Vaccine for this season: No Have you received the Pneumonia Vaccine: No Review of Systems Review of Systems Review of systems:: pertinent systems reviewed and negative unless documented below Meds Home Medications and Allergies Home Medications ?Medication ?Instructions ?Recorded ?Confirmed ?Type levothyroxine 100 mcg tablet 100 mg PO DAILY hypothyro id 03/11/18 04/06/25 History losartan 50 mg tablet 50 mg PO DAILY bp 04/10/20 1 06/07/24 History atorvastatin 10 mg tablet 10 mg PO DAILY Cholesterol 0 12/29/22 04/06/25 History omeprazole 10 mg capsule,delayed 10 mg PO DAILY Choles terol 12/29/22 04/06/25 History release lidocaine 5 % topical patch 1 patch topical DAILY back pain 06/04/24 04/06/25 Rx #15 ea hydrocodone 5 mg-acetaminophen 325 1 tab PO TID #90 ta bs 08/21/24 04/06/25 Rx mg tablet baclofen 10 mg tablet See Rx Instructions .Route 0 12/27/24 04/06/25 Rx .COMPLEX #90 tabs diclofenac sodium 75 mg See Rx Instructions .Route 1 04/06/25 Rx tablet,delayed release .COMPLEX #60 tabs ropinirole 1 mg tablet See Rx Instructions .Route 1 04/06/25 Rx .COMPLEX #30 tabs New Prescriptions to Start Prescriptions: Allergies Allergy/AdvReac Type Severity Reaction Status Date / Time No Known Drug Allergies (NO Allergy Unknown Unknown Verified 04/06/25 09:12 KNOWN DRUG ALLERGIES) Exam Data for Last 24 hours Vital signs and Labs for Last 24 Hours: Temp Pulse Resp BP Pulse Ox O2 Del Method 98.1 F 85 16 129/63 98 Room Air 04/06/25 12:25 04/06/25 12:25 04/06/25 12:25 04/06/25 12:25 04/06/25 12:25 04/06/25 12:25 I & O for Last 24 hours: Intake & Output 04/04/25 04/05/25 04/06/25 04/07/25 11:59 11:59 11:59 11:59 Intake Total 50 / 50 Balance 50 / 50 Weight 200 lb *Routine HEENT Exam Head: Present normocephalic Eye: Present EOMI ENT: Present mucous membranes moist *Routine Respiratory Exam Respiratory: Present CTA bilaterally *Routine Cardiovascular Exam Cardiovascular: Present RRR, Normal S1 and Normal S2 *Routine Abdominal Exam Abdominal: Present soft *Routine Rectal Exam Rectal:: deferred *Routine Genitalia Exam Genitalia:: deferred Assessment and Plan *Assessment and plan (1) Battery end of life of spinal cord stimulator: Status: Acute Category: Medical Code(s): Z45.42 - Encounter for adjustment and management of neurostimulator Plan Replacement spinal cord stimulator generator today
--- NOTE | 2025-04-06 12:46 | EXP.OP.NOTE ---
Date of procedure: 04/06/25 Pre-op Diagnosis:: End-of-life spinal cord stimulator battery Post-op Diagnosis:: Same Procedure performed:: Replacement of spinal cord stimulator battery Surgeon:: Johnathan Ferraro MD ENGINEERING ASSISTANT:: Laci Martínez Anesthesia: MAC Estimated blood loss (mL): 5 Clinical Note:: This patient has a end-of-life spinal cord stimulator battery for the i-marker system. We will replace the battery today. All contacts are intact Operative findings:: None Operative note:: Informed consent was obtained risk and benefits of the procedure were explained to the patient. The patient was taken operating room placed prone on the procedure table. She was prepped and draped in sterile fashion. The skin and subcutaneous tissues overlying the stimulator generator were anesthetized using lidocaine. I made an incision and dissected. We disconnected the leads and reconnected them to the new stimulator generator. Impedances were checked and found to be okay. Leads were checked and found to be in good position. The generator was placed in the pocket incision was closed with 2-0 Vicryl followed by 4-0 nylon and amisha. The patient tolerated the procedure well with no complications. Patient was discharged home and elected to have acute relief of pain symptoms. This was after reprogramming of the by the i-marker rep. Plan and disposition: Will follow-up with this patient in 1 week for wound check and reprogramming. Will follow-up in 2 to 3 weeks for suture and staple Condition: stable Disposition: PACU Complications:: none
== END 2025-04-06 12:47 | disposition home or self-care (01) ==
PROVIDERS: PCP Family Medicine; Visit Provider Anesthesiology
PROC: (CPT 63685; principal; 2025-04-06 10:45)
DX: Z45.42 Encounter for adjustment and management of neurostimulator (principal); E78.5 Hyperlipidemia, unspecified; I10 Essential (primary) hypertension; Z90.49 Acquired absence of other specified parts of digestive tract; Z90.710 Acquired absence of both cervix and uterus; Z79.899 Other long term (current) drug therapy; Z79.890 Hormone replacement therapy
CPT/HCPCS: 63685; 96372; 96374; C1820; J1580; J2003; J2004; J2250; J2405; J2704; J3010; J7120